=== PATIENT | male | born 1935 | race Caucasian/White ===

== ENCOUNTER 2018-04-11 09:30 | Emergency (ER) | payer MEDICARE, OTHER ==
[2018-04-11] MEDS ORDERED: KEFLEX500 MG PO (11:52)
[2018-04-11 13:02] VITALS: BP 134/73
== END 2018-04-11 13:02 | disposition home or self-care (01) ==
LOC: D.ER 09:30
DX: S09.90XA Unspecified injury of head, initial encounter (principal); W18.30XA Fall on same level, unspecified, initial encounter; Y93.01 Activity, walking, marching and hiking; Y92.830 Public park as the place of occurrence of the external cause; S01.81XA Laceration without foreign body of other part of head, initial encounter; S02.2XXA Fracture of nasal bones, initial encounter for closed fracture; F17.200 Nicotine dependence, unspecified, uncomplicated

== ENCOUNTER → 2018-08-16 08:02 | Outpatient (CLI) | payer MEDICARE, OTHER ==
[~2018-08-16 08:02] MED LIST: CELEXA20 MG PO; COREG6.25 MG PO; ELIQUIS2.5 MG PO; KEFLEX500 MG PO; LISINOPRIL5 MG PO; NEURONTIN 300300 MG PO; PLAVIX75 MG PO; RESTORIL15 MG PO
--- NOTE | 2018-08-20 10:22 | ST ---
PATIENT:ADAM ROUSE MEDICAL RECORD: [id number] SEX: M LOCATION:[facility] ORDER #: ADMISSION DATE: 08/16/18 AGE OF PATIENT: 83 REFERRING PHYSICIAN: INTERPRETING PHYSICIAN: MARILYN PAZ MD DATE OF SERVICE: 08/16/2018 INDICATIONS: Angina, shortness of breath, hypertension, cardiomyopathy. The patient was exercised on standard Lexiscan protocol with 31 mCi of sestamibi injected at peak stress, 11 mCi were used previously for rest images. FINDINGS: Gated SPECT reveals a mildly depressed ejection fraction at 44% with decreased thickening and brightening throughout the inferior segments. SPECT imaging Cardiolite was used as myocardial perfusion agent. There is a mixed perfusion defect inferiorly. This is partially fixed, partially reversible includes basal, mid, apical, inferior segments. There is reversibility throughout. The remaining segments with homogeneous uptake at rest and stress. OVERALL IMPRESSION: This is an abnormal nuclear stress test showing a mixed perfusion defect inferiorly, partially fixed, partially reversible and a mildly depressed ejection fraction of 44%, highly suggestive of hemodynamically significant coronary artery disease. We will proceed with coronary angiography as a followup study. TRANSINT:[id number] Voice Confirmation ID: [id number] DOCUMENT ID: [id number] MARILYN PAZ MD at 1022 CC: REY ROLON [id number] DICTATION DATE: 08/16/18 1259 [employer]AREER PLACEMENT [employer] COUNSELOR: 08/17/18 0225 [facility] CLI 08/16/18 [place] [id number] [place] [id number]
[2018-09-03 11:03] VITALS: BMI 28.6
== END | disposition home or self-care (01) ==
LOC: D.HCCARDIO 08:02
DX: I20.9 Angina pectoris, unspecified (principal)

== ENCOUNTER → 2018-08-16 08:38 | Outpatient (CLI) | payer MEDICARE, OTHER ==
[2018-09-03 11:03] VITALS: BMI 28.6
== END | disposition home or self-care (01) ==
LOC: D.HCCARDIO 08:30
DX: I20.9 Angina pectoris, unspecified (principal)

== ENCOUNTER 2018-08-26 10:34 | Outpatient (CLI) | payer MEDICARE, OTHER ==
[~2018-08-26] VITALS: Ht 180.3 cm; Wt 93.6 kg
--- NOTE | ~2018-08-26 | HEMODYNAMI ---
PATIENT:ADAM ROUSE MEDICAL RECORD: [id number] : 35 LOCATION:[facility] ADMISSION DATE: 08/26/18 Generatedon:08/26/201813:59 Patient name: ADAM ROUSE Patient #: [id number] SSN: : 1935 Date of study: 08/26/2018 Page: Of Hemodynamic Procedure Report Patient Data Patient Demographics Procedure consent was obtained First Name: ADAM Gender: Male Last Name: PADMA : 1935 Middle Initial: L Age: 83 year(s) Patient #: [id number] Race: Unknown Additional ID: [id number] Contact details Address: [address] [place] [address] [id number] State: [place] City: [facility] Zip code: [address] Admission Admission Data Admission Date: 08/26/2018 Admission Time: 10:34 Procedure Procedure Types Cath Procedure Diagnostic Procedure LHC LHC w/Coronaries PCI Procedure Coronary Stent Coronary Stent Initial Procedure Description Procedure Date Procedure Date: 08/26/2018 Procedure Start Time: 13:27 Procedure End Time: 13:59 Procedure Staff Name Function Nakul Hodgson MD Performing Physician Dawood Jorge RT Monitor Inna Black RT Scrub Jacquie Kim RN Nurse Procedure Data Cath Procedure Fluoroscopy Diagnostic fluoroscopy Total fluoroscopy Time: 3.3 time: 3.3 min min Diagnostic fluoroscopy Total fluoroscopy dose: 973 dose: 973 mGy mGy Contrast Material Contrast Material Type Amount (ml) Isovue 300 99 Entry Location Entry Primary Successful Side Size Upsize Upsize Entry Closure Succes sful Closure Location (Fr) 1 (Fr) 2 (Fr) Remarks Device Remarks Femoral Right 5 Fr 6 Fr Exoseal artery Short Estimated blood loss: 20 ml Diagnostic catheters Device Type Used For End Catheter Placement MULTIPACK JL 4.0 5Fr Procedure catheter MULTIPACK 3DRC 5Fr Procedure catheter MULTIPACK Pigtail 5 Fr Procedure catheter Procedure Medications Medication Administration Route Dosage Oxygen etCO2 Nasal cannula 2 l/min Lidocaine 2% added to field 20 Heparin Flush Bag added to field 2 bags (1000units/500ml NS) 0.9% NaCl I.V. 100 ml/hr Versed I.V. 1 mg Fentanyl I.V. 50 mcg Versed I.V. 1 mg Fentanyl I.V. 50 mcg Radial Cocktail added to field 1 syringe (Verapomil 2mg/Nitro 400mcg/Heparin 1500units) Heparin Bolus I.V. 4000 units Integrilin (Bolus I.V. 8.5 ml 2mg/ml) Plavix P.O. 600 mg Hemodynamics Rest Heart Rate: 75 (bpm) Pressure Samples Time Site Value (mmHg) Purpose Heart Use Rate(bpm) 13:38 LV 125/4,9 Snapshot 88 Snapshots Pre Cath Intra NCS Post Cath Vital Signs Time Heart Resp SPO2 etCO2 NIBP (mmHg) Rhythm Pain Sedation Rate (ipm) (%) (mmHg) Status Level (bpm) 13:13:38 77 14 99 29.8 168/104(122) A-Fib 0 (11) 10(A) , No pain 13:17:56 63 18 100 25.3 161/100(119) A-Fib 0 (11) 10(A) , No pain 13:22:10 77 12 100 22.4 143/98(127) A-Fib 0 (11) 10(A) , No pain 13:26:20 88 14 98 30 140/91(122) A-Fib 0 (11) 10(A) , No pain 13:30:27 72 18 94 33.6 138/98(116) A-Fib 0 (11) 9(A) , No pain 13:34:33 73 10 95 0 152/97(120) A-Fib 0 (11) 9(A) , No pain 13:38:49 83 10 93 8.9 143/86(127) A-Fib 0 (11) 9(A) , No pain 13:42:59 92 10 93 12.6 148/89(110) A-Fib 0 (11) 9(A) , No pain 13:47:09 68 10 96 29.1 151/97(129) A-Fib 0 (11) 9(A) , No pain 13:51:21 69 13 97 0 164/97(121) A-Fib 0 (11) 10(A) , No pain 13:55:37 80 12 96 27.6 151/100(125) A-Fib 0 (11) 10(A) , No pain Medications Time Medication Route Dose Verified Delivered Reason Not es Effectiveness by by 13:14:24 Oxygen etCO2 2 l/min Nakul Buffie used for Nasal St Toni Kim RN procedure cannula 13:14:31 Lidocaine 2% added 20ml Nakul Nakul for local to vial [facility] anesthetic field MD MORRIS 13:14:37 Heparin Flush added 2 bags Nakul Nakul used for Bag to [facility] procedure (1000units/500ml field MD MORRIS NS) 13:14:47 0.9% NaCl I.V. 100 Nakul Hillie used for ml/hr St Toni Kim RN procedure 13:28:28 Versed I.V. 1 mg Nakul Hillie for sedation St Toni Kim RN, MD 13:28:34 Fentanyl I.V. 50 mcg Nakul Dhillon for sedation St Toni Kim RN, MD 13:32:31 Versed I.V. 1 mg Nakul Hillie for sedation St Toni Kim RN, MD 13:32:35 Fentanyl I.V. 50 mcg Nakul Dhillon for sedation St Toni Kim RN, MD 13:32:52 Radial Cocktail added 1 Nakul Buffie not used (Verapomil to syringe St Toni Kim RN 2mg/Nitro field MORRIS 400mcg/Heparin 1500units) 13:42:13 Heparin Bolus I.V. 4000 Nakul Hillie for cely ified units St Toni Kim RN anticoagulation with dr MD serrano 13:42:20 Integrilin I.V. 8.5 ml Nakul Hillie for Was marguerite (Bolus 2mg/ml) St Toni Kim RN antiplatelet 1.5 ml MD therapy of vial 13:53:59 Plavix P.O. [address] for [address] Toni Kim RN antiplatelet therapy Procedure Log Time Note 12:50:43 Dawood Jorge RT(R) (CV) sent for patient. Start room use. 13:05:23 Informed consent obtained and on chart 13:05:53 Time tracking: Regular hours (M-F 7:00 - 5:00) 13:05:57 Plan of Care:Hemodynamics will remain stable., Cardiac rhythm will remain stable., Comfort level will be maintained., Respiratory function will remain adequate., Patient/ family verbilizes understanding of procedure., Procedure tolerated without complication., Recovers from procedure without complications.. 13:06:03 Patient received from Pre/Post Procedure Room to CCL 2 Alert and oriented. Tansferred to table in Supine position. 13:06:04 Warm blankets applied, and torin hugger turned on for patient comfort. 13:06:04 Correct patient and procedure confirmed by team. 13:06:05 ECG and BP/O2 sat monitors applied to patient. 13:12:29 Vital chart was started 13:12:58 Baseline sample Acquired. 13:13:15 Rhythm: atrial fibrillation 13:13:17 Full Disclosure recording started 13:13:21 H&P Date Dictated: 08/26/2018 Within 30 days and on chart., H&P Addendum completed by physician on day of procedure. (MUST COMPLETE FOR ALL OUTPATIENTS). 13:13:22 Pre-procedure instructions explained to patient. 13:13:23 Pre-op teaching completed and patient verbalized understanding. 13:13:24 Family in waiting room. 13:13:26 Patient NPO since Midnight. 13:13:28 Is the patient allergic to Iodine/contrast media? No. 13:13:29 Was the patient premedicated? No 13:13:30 Is patient on blood thinner?No 13:13:45 Patient diabetic? No. 13:13:48 Previous problem with sedation/anesthesia? No ? 13:13:51 Snore? No 13:13:52 Sleep apnea? No 13:13:53 Deviated septum? No 13:13:54 Opens mouth fully? Yes 13:13:56 Sticks out tongue? Yes 13:13:58 Airway obstruction? No ? 13:14:00 Dentures? No ? 13:14:14 Patient pain scale 0/10 ?. 13:14:19 IV patent on arrival in left forearm with 0.9% NaCl at [facility]. 13:14:21 Lab results completed and on chart. 13:14:24 Oxygen 2 l/min etCO2 Nasal cannula was administered by Jacquie Kim RN; used for procedure; 13:14:27 Right Radial & Right Groin area was prepped with chlora-prep and draped in sterile fashion 13:14:28 Alarms reviewed by R. N. 13:14:28 Sharps counted by scrub and verified by R.N. 13:14:31 Lidocaine 2% 20ml vial added to field was administered by Nakul Hodgson MD; for local anesthetic; 13:14:37 Heparin Flush Bag (1000units/500ml NS) 2 bags added to field was administered by Nakul Hodgson MD; used for procedure; 13:14:47 0.9% NaCl 100 ml/hr I.V. was administered by Jacquie Kim RN; used for procedure; 13:20:21 Use device set Radial Dx or PCI 13:20:22 ACIST Syringe (55621) opened to sterile field. 13:20:23 Medline Cath Pack ([id number]) opened to sterile field. 13:20:24 Bag Decanter (2002) opened to sterile field. 13:20:24 DIAGNOSTIC WIRE .035 260cm J wire (314050) opened to sterile field. 13:20:25 ACIST Hand Control (73108) opened to sterile field. 13:20:26 ACIST Manifold (45293) opened to sterile field. 13:20:27 Tegaderm 4 x 4 (1626W) opened to sterile field. 13:20:27 MBrace Wrist Support ([id number]) opened to sterile field. 13:20:46 SHEATH 6FR RAIN (2086888) NO COST SUPPLY opened to sterile field. 13:21:31 Pre procedure: right dorsailis pedis pulse 1+ Palpable, but thready & weak; easily obliterated 13:27:05 Physician arrived 13:27:06 --------ALL STOP TIME OUT------ 13:27:06 Final Timeout: patient, procedure, and site verified with staff and physician. All members of the team are in agreement. 13:27:09 Right Radial & Right Groin site verified by team. 13:27:12 Physical assessment completed. ASA score P 2 - A patient with mild systemic disease as per Nakul Hodgson MD. 13:27:16 Sedation plan: IV Moderate Sedation Medication:Versed, Fentanyl 13:27:27 Procedure started. 13:27:55 Local anesthetic to right radial artery with Lidocaine 2% by Nakul Hodgson MD.INITIAL ACCESS ONLY 13:28:28 Versed 1 mg I.V. was administered by Jacquie Kim RN; for sedation; 13:28:34 Fentanyl 50 mcg I.V. was administered by Jacquie Kim RN; for sedation; 13:31:09 UNABLE TO GAIN RADIAL ACCESS 13:31:52 SHEATH 5FR Concord (TPQ773) opened to sterile field. 13:32:07 Local anesthetic to right femoral artery with Lidocaine 2% by Nakul Hodgson MD.ADDITIONAL ACCESS 13:32:31 Versed 1 mg I.V. was administered by Jacquie Kim RN; for sedation; 13:32:35 Fentanyl 50 mcg I.V. was administered by Jacquie Kim RN; for sedation; 13:32:52 Radial Cocktail (Verapomil 2mg/Nitro 400mcg/Heparin 1500units) 1 syringe added to field was administered by Jacquie Kim RN; ; not used 13:33:10 A 5 Fr sheath was inserted into the Right Femoral artery 13:33:28 Use device set Femoral Dx 13:34:06 DIAGNOSTIC Multipack 5Fr catheter set (LG5451) opened to sterile field. 13:34:19 A MULTIPACK JL 4.0 5Fr catheter was advanced over the wire and used for Procedure. 13:34:23 LCA angiography performed. 13:35:05 Catheter removed. 13:35:18 A MULTIPACK 3DRC 5Fr catheter was advanced over the wire and used for Procedure. 13:35:43 RCA angiography performed. 13:36:28 Catheter removed. 13:36:37 A MULTIPACK Pigtail 5 Fr catheter was advanced over the wire and used for Procedure. 13:36:44 Zero performed for pressure channel P1 13:36:47 Zero performed for pressure channel P1 13:36:50 Zero performed for pressure channel P1 13:36:53 Zero performed for pressure channel P1 13:36:55 Zero performed for pressure channel P1 13:37:00 Zero performed for pressure channel P1 13:37:18 Zero performed for pressure channel P1 13:37:32 Zero performed for pressure channel P1 13:37:37 Zero performed for pressure channel P1 13:37:47 Zero performed for pressure channel P1 13:38:15 LV gram done using MARES 13:38:16 LV hemodynamics recorded. 13:38:33 EF : 40 % 13:40:32 WHISPER 300cm guide wire ([id number]) opened to sterile field. 13:40:35 INFLATOR Merit BasixCompak (WA3172) opened to sterile field. 13:40:37 SHEATH 6FR Concord (IEG812) opened to sterile field. 13:40:55 GUIDE 6FR EBU 3.5 catheter ([id number]) opened to sterile field. 13:41:10 Sheath upsized to a 6 Fr Short. 13:41:20 Catheter removed. 13:41:21 Proceeding to intervention. 13:42:13 Heparin Bolus 4000 units I.V. was administered by Jacquie Kim RN; for anticoagulation; verified with dr serrano 13:42:19 PCI Cath status Elective 13:42:20 Integrilin (Bolus 2mg/ml) 8.5 ml I.V. was administered by Jacquie Kim RN; for antiplatelet therapy; Wasted 1.5 ml of vial 13:42:26 6 Fr EBU 3.5 guide catheter was inserted over the wire 13:44:28 WHISPER wire advanced. 13:45:27 Place stent Inflation Number: 1 A INTEGRITY OTW 3.5 X 22 stent ([id number]) was prepped and advanced across the Mid LAD. The stent was deployed at 14 LISA for 0:30 (min:sec). 13:46:08 Stent catheter was removed intact over wire. 13:47:56 Place stent Inflation Number: 1 A INTEGRITY OTW 3.5 X 15 stent ([id number]) was prepped and advanced across the Prox LAD. The stent was deployed at 14 LISA for 0:30 (min:sec). 13:48:13 Stent catheter was removed intact over wire. 13:48:14 Wire removed. 13:48:15 Guide catheter removed. 13:49:13 EXOSEAL 6Fr (EX600) opened to sterile field. 13:49:40 Sheath removed intact; hemostasis achieved with Exoseal to the Right Femoral artery. 13:50:21 Procedure ended.(Physican Out) 13:53:59 Plavix 600 mg P.O. was administered by Jacquie Kim RN; for antiplatelet therapy; 13:54:58 Fluoroscopy time 03.30 minutes. 13:55:17 Fluoroscopy dose: 973 mGy 13:55:17 Flurop Dose total: 973 13:55:46 Contrast amount:Isovue 300 99ml. 13:55:53 Sharps counted by scrub and verified by R.N. 13:56:53 Insertion/operative site no bleeding no hematoma. 13:56:57 Post-op/insertion site Right Femoral artery dressed using a 4 x 4 and Tegaderm. 13:57:01 Post right femoral artery:stable 13:57:06 Post Procedure Pulses reassessed and unchanged 13:57:12 Post-procedure physical assessment completed. ASA score P 2 - A patient with mild systemic disease as per Nakul Hodgson MD. 13:57:22 Post procedure rhythm: atrial fibrillation 13:57:27 Estimated blood loss: 20 ml 13:57:33 Patient needs reinforcement of post procedure teaching. 13:57:40 Procedure and supply charges have been captured, reviewed, submitted and are correct. 13:58:15 Procedure type changed to Cath procedure, Diagnostic procedure, LHC, LHC w/Coronaries, PCI procedure, Coronary Stent, Coronary Stent Initial 13:58:58 Vital chart was stopped 13:58:59 See physician's report for complete and final results. 13:59:01 Report given to Pre/Post Procedure Room. 13:59:10 Patient transfered to Pre/Post Procedure Room with Stretcher. 13:59:17 Procedure ended. 13:59:17 Full Disclosure recording stopped 13:59:21 End room use (Document Last) Intervention Summary Intervention Notes Time ActionType Lesion and Equipment Action# Pressure Duration Attributes Used 13:45:27 Place stent Mid LAD INTEGRITY 1 14 00:30 OTW 3.5 X 22 stent ([id number]) 13:47:56 Place stent Prox LAD INTEGRITY 1 14 00:30 OTW 3.5 X 15 stent ([id number]) Device Usage Item Name Manufacture Quantity Catalog Hospital Part Current Minimal Lot# / Number Charge Number Stock Stock Serial# Code ACIST Acist 1 74353 859108 599967 579814 20 Syringe Medical (58179) Systems Inc Medline Medline 1 [id number] 933383 05112 577778 5 Cath Pack ([id number]) Bag Microtek 1 2001S 776644 87617 167682 5 Decanter Medical Inc. () DIAGNOSTIC St [place] 1 864152 423750 238737 932438 30 WIRE .035 260cm J wire (786301) ACIST Hand Acist 1 97835 797257 419037 244143 5 Control Medical (29361) Systems Inc ACIST Acist 1 38074 918749 147654 265002 5 Manifold Medical (02731) Systems Inc Tegaderm 4 3M 1 1626W 134175 359325 015482 5 x 4 (1626W) MBrace Advanced 1 140-0250-00 244982 85100 094283 5 Wrist Vascular Support Dynamics ([id number]) SHEATH 6FR Cardinal 1 4804488 592385 589680 5 [facility] (6730026) NO COST SUPPLY SHEATH 5FR Terumo 1 NDJ024 802950 124843 379005 5 Concord (JDR835) DIAGNOSTIC Cardinal 1 OC5995 624943 99303 433492 30 Multipack Health 5Fr catheter set (DE4599) MULTIPACK Cardinal 1 550592 5 JL 4.0 5Fr Health catheter MULTIPACK Cardinal 1 203577 5 3DRC 5Fr Health catheter MULTIPACK Cardinal 1 904255 5 Pigtail 5 Health Fr catheter WHISPER [place] 1 [id number] 115752 428062 590639 5 300cm guide Vascular wire ([id number]) INFLATOR [facility] 1 WL8921 454645 716534 242313 15 [facility] BasixCompak (GZ3037) SHEATH 6FR Terumo 1 UZY344 274159 383879 485746 40 Concord (MLT896) GUIDE 6FR Medtronic 1 [id number] 779397 33835 686185 3 EBU 3.5 catheter (TR4SZS51) INTEGRITY Medtronic 1 [id number] 551195 745106 356814 9 [id number] OTW 3.5 X 22 stent ([id number]) INTEGRITY Medtronic 1 [id number] 414361 358431 915649 2 [id number] OTW 3.5 X 15 stent ([id number]) EXOSEAL 6Fr Cardinal 1 EX600 956158 259912 944050 10 (EX600) Health Signature Audit S [place] Stage Time Signature Unsigned Intra-Procedure 08/26/2018 Dawood Jorge 1:59:45 PM RT(R) (CV) Signatures Monitor : Dawood Jorge RT Signature : Date : Time : [facility] [address] [place] [id number]
[~2018-08-26 10:34] MED LIST changes: -CELEXA20 MG PO; -COREG6.25 MG PO; -ELIQUIS2.5 MG PO; -LISINOPRIL5 MG PO; -NEURONTIN 300300 MG PO; -PLAVIX75 MG PO; -RESTORIL15 MG PO
[2018-08-26] MEDS ORDERED: ELIQUIS2.5 MG PO (11:11)
[2018-08-26] MEDS ORDERED: RESTORIL15 MG PO (11:12)
[2018-08-26] MEDS ORDERED: LISINOPRIL5 MG PO (11:12)
[2018-08-26] MEDS ORDERED: NEURONTIN 300300 MG PO (11:13)
[2018-08-26] MEDS ORDERED: COREG6.25 MG PO (11:14)
[2018-08-26] MEDS ORDERED: CELEXA20 MG PO (11:14)
[2018-08-26 11:33] VITALS: BP 138/86; Ht 180.3 cm; Wt 93.6 kg
[2018-08-26 11:42] LABS: BASOPHILS 0.8 % (0-2); EOSINOPHILS 2.5 % (0-7); HEMATOCRIT 41.1 % (42.0-54.0); HEMOGLOBIN 14.3 g/dL (13.5-17.5); LYMPHOCYTES 18.7 % (15-50); MCH 33.3 pg (26.0-34.0); MCHC 34.8 g/dL (31.0-37.0); MCV 95.8 fL (80.0-100.0); MEAN PLATELET VOLUME 9.5 fL (7.4-10.4); MONOCYTES 7.5 % (2-11); NEUTROPHILS 69.5 % (40-80); PLATELET COUNT 148 10x3/uL (130-400); RBC 4.29 10x6/uL (4.20-6.10); RDW 14.9 % (11.5-14.5); WBC 7.1 10x3/uL (4.8-10.8)
[2018-08-26 11:50] LABS: CALC OSMOLALITY 276 mosm/kg (275-300); CALCIUM 8.5 mg/dL (8.5-10.1); CARBON DIOXIDE 26.9 mmol/L (21.0-32.0); CHLORIDE - SERUM 100 mmol/L (98-107); CREATININE - SERUM 0.8 mg/dL (0.6-1.3); GLUCOSE 99 mg/dL (74-106); SODIUM 137 mmol/L (136-145); UREA NITROGEN 20 mg/dL (7-18); eGFR NON AFRICAN AMERICAN > 90 mL/min (90-120)
[2018-08-26 11:52] LABS: POTASSIUM - SERUM 4.9 mmol/L (3.5-5.1)
[2018-08-26] MEDS ORDERED: PLAVIX75 MG PO (14:10)
--- NOTE | 2018-08-26 14:23 | NUR ---
1411 RECEIVED PT FROM ROOFING APPLICATOR. PT IS SLEEPING, AWAKENS TO VERBAL. DENIES ANY C/O. TR BAND CDI TO RIGHT WRIST, 6 FR EXOSEAL IS CDI TO RIGHT GROIN, NO BLEEDING OR HEMATOMA NOTED AT SITES. PULSES PALPABLE. AFIB WITH OCCASIONAL PVC'S, PT DENIES ANY C/O CHEST PAIN. HOB IS FLAT, FRIENDS AT BEDSIDE,. CALL LIGHT IN REACH.
--- NOTE | 2018-08-26 14:28 | NUR ---
EXOSEAL AND TR BAND ARE CDI, NO BLEEDING OR HEMATOMA NOTED AT EITHER SITE, PULSES PALPABLE. HOB IS FLAT. VSS, CALL LIGHT IN REACH. FRIENDS AT BEDSIDE.
--- NOTE | 2018-08-26 14:46 | NUR ---
EXOSEAL DRESSING AND TR BAND ARE CDI, PULSES PALPABLE, CAP REFILL IS BRISK. HOB IS FLAT, VSS. DENIES ANY C/O. CALL LIGHT IN REACH.
--- NOTE | 2018-08-26 15:08 | NUR ---
DRESSING CDI TO RIGHT GROIN AND TR BAND IS CDI TO RIGHT WRIST. PULSES PALPABLE. HOB IS FLAT, A-FIB WITH NO C/O CHEST PAIN. VSS.
--- NOTE | 2018-08-26 15:59 | NUR ---
DRESSING TO RIGHT GROIN IS CDI, AREA IS SOFT AND NONTENDER. PEDAL PULSES PALPABLE. TR BAND IS CDI TO RIGHT WRIST, NO BLEEDING NOTED. FIGNERS WARM AND CAP REFILL IS BRISK. PT DENIES ANY C/O. VSS, FRIEND AT BEDSIDE.
--- NOTE | 2018-08-26 16:33 | NUR ---
TR BAND CDI, FINGERS WARM AND PULSES PALPABLE. EXOSEAL CDI TO RIGHT GROIN, AREA IS SOFT AND NONTENDER. PEDAL PULSES PALPABLE. A-FIB, PT DENIES ANY C/O CHEST PAIN. HOB IS FLAT, FRIEND AT BEDSIDE. CALL LIGHT IN REACH.
--- NOTE | 2018-08-26 16:58 | NUR ---
DRESSING REMAINS CDI TO RIGHT GROIN, AREA IS SOFT AND NONTENDER. PEDAL PULSES PALPABLE. HOB ELEVATED 30 DEGREES, SANDWICH AND PO FLUIDS SERVED. 3 CC OF AIR WEANED FROM TR BAND WITH NO BLEEDING NOTED. FINGERS WARM PULSES PALPABLE. PT IS ALERT AND DENIES ANY C/O. RESP WITH EASE ON ROOM AIR.
--- NOTE | 2018-08-26 18:20 | NUR ---
1710 4 CC OF AIR WEANED FROM TR BAND WITH NO BLEEDING NOTED. 1725 HOB FULY ELEVATED, DRESSING REMAINS CDI TO RIGHT GROIN. ALL REMAINING AIR WEANED FROM TR BAND WITH NO BLEEDING NOTED. PT HAS TOLERATED SANDWICH WITH NO C/O NAUSEA.
--- NOTE | 2018-08-26 18:22 | NUR ---
1745 TR BAND REMOVED AND 2X2, TEGADERM APPLIED TO SITE. WRIST IMMOBILIZER IN PLACE. DRESSING CDI TO RIGHT GROIN, PEDAL AND RADIAL PULSES PALPABLE. IV DC'D WITH CATH INTACT AND PT IS DRESSING FOR DC TO HOME WITH ASSIST FROM NURSE. 1805 DRESSING TO RIGHT WRIST IS CDI, FINGERS WARM AND PULSES PALPABLE. DC INSTRUCTIONS REVIEWED WITH PT AND FRIEND WHO VERBALIZE UNDERSTANDING. PT VERBALIZES UNDERSTANDING TO PLANE CAPTAIN [facility] PRES[facility] AND START MED TOMORROW. [facility] MED COUNSELOR SHEET REVIEWED WITH PT AND COPY PROVIDED. PT ESCORTED TO PRIVATE AUTO VIA WC BY NURSE WITH FRIEND DRIVING HIM HOME.
--- NOTE | 2018-08-31 12:54 | OP ---
PATIENT NAME: ADAM ROUSE MEDICAL RECORD: [id number] :35 LOCATION:D.[facility] ADMISSION DATE: SURGEON: SABINE ARREAGA MD DATE OF OPERATION: 08/26/2018 PROCEDURES: Left heart catheterization, selective coronary angiography, right femoral artery approach. CATHETERS: A 5-Gibraltarian sheath, 5/4 left and right Gosia, 5/4 pig. The procedure was well tolerated. The patient was returned to [place]. Sheath was removed. ExoSeal device was placed. FINDINGS: Left ventriculography on 30-degree MARES view shows mild global hypokinesis. EF is mildly reduced at 40%. CORONARY ANATOMY: LEFT MAIN: Left main is free of disease. LAD: It has long diffuse 80% stenosis. CIRCUMFLEX: Small circumflex, about 70% stenosis, diffuse. RIGHT CORONARY: It has a more discrete 80% stenosis. PLAN: Staged intervention with LAD today and right at a later date. DESCRIPTION OF PROCEDURE: A 5-Gibraltarian sheath was exchanged for a 6-Gibraltarian sheath. XB LAD guiding catheter provided excellent guide catheter support followed by 300-cm Whisper wire. Stents were placed in the following fashion. A 3.5 x 22-mm Integrity nondrug-eluting stent placed distally; and more proximally, a 3.5 x 15-mm Integrity nondrug-eluting stent up to 14 atmospheres. Balloon inflation lasted approximately 45 seconds. Final angiography shows excellent resolution of long diffuse 80% stenosis with no significant residual. LIZZ flow was 3 throughout the procedure. Plavix was loaded in the lab. Sheath was closed with ExoSeal device. PLAN: Intervention to right at a later date. TRANSINT:[id number] Voice Confirmation ID: [id number] DOCUMENT ID: [id number] SABINE ARREAGA MD at 1254 CC: [id number] DICTATION DATE: 08/26/18 1352 GANG HEAD SAW OPERATOR: 08/26/18 1931 DEP CLI 08/26/18 [facility] [address] [place] [place] [address]
== END 2018-08-26 18:05 | disposition home or self-care (01) ==
LOC: D.CATH 10:34
PROVIDERS: Internal Medicine Interventional Cardiology
DX: I25.10 Atherosclerotic heart disease of native coronary artery without angina pectoris (principal); I48.91 Unspecified atrial fibrillation; I10 Essential (primary) hypertension; F17.210 Nicotine dependence, cigarettes, uncomplicated; F32.9 Major depressive disorder, single episode, unspecified; Z95.0 Presence of cardiac pacemaker; Z79.01 Long term (current) use of anticoagulants; Z79.899 Other long term (current) drug therapy; Z01.812 Encounter for preprocedural laboratory examination

== ENCOUNTER 2018-08-26 19:14 | Emergency (ER) | payer MEDICARE, OTHER ==
[~2018-08-26] VITALS: Ht 180.3 cm; Wt 93.2 kg
[~2018-08-26 19:14] MED LIST changes: +CELEXA20 MG PO; +COREG6.25 MG PO; +ELIQUIS2.5 MG PO; +LISINOPRIL5 MG PO; +NEURONTIN 300300 MG PO; +PLAVIX75 MG PO; +RESTORIL15 MG PO
[2018-08-26 19:24] VITALS: Ht 180.3 cm; Wt 93.2 kg
[2018-08-26 20:00] VITALS: BP 130/79
== END 2018-08-26 20:00 | disposition home or self-care (01) ==
LOC: D.ER 19:14
DX: L76.22 Postprocedural hemorrhage of skin and subcutaneous tissue following other procedure (principal); I10 Essential (primary) hypertension; F17.200 Nicotine dependence, unspecified, uncomplicated

== ENCOUNTER 2018-09-03 10:25 | Outpatient (CLI) | payer MEDICARE, OTHER ==
[~2018-09-03] VITALS: Ht 180.3 cm; Wt 93.2 kg
--- NOTE | ~2018-09-03 | HEMODYNAMI ---
PATIENT:ADAM ROUSE MEDICAL RECORD: [id number] : 35 LOCATION:D.CAT ADMISSION DATE: 09/03/18 Generatedon:09/03/201813:23 Patient name: ADAM ROUSE Patient #: [id number] SSN: : 1935 Date of study: 09/03/2018 Page: Of Hemodynamic Procedure Report Patient Data Patient Demographics Procedure consent was obtained First Name: ADAM Gender: Male Last Name: PADMA : 1935 Middle Initial: L Age: 83 year(s) Patient #: [id number] Race: Unknown Additional ID: [id number] Contact details Address: [address] [place] [address] [id number] State: [place] City: [facility] [place] Zip code: [address] Past Medical History Allergies: No known allergies Admission Admission Data Admission Date: 09/03/2018 Admission Time: 10:25 Admit Source: Other Lab Results Lab Result Date: 09/03/2018 Lab Result Time: 0:00 Biochemistry Name Units Result Min Max BUN mg/dl 14 --(--*-)-- 7 18 Creatinine mg/dl 1.1 --(--*-)-- 0.6 1.3 CBC Name Units Result Min Max Hemoglobin g/dl 14.3 --(*---)-- 13.5 17.5 Procedure Procedure Types Cath Procedure PCI Procedure Coronary Stent Coronary Stent Initial Procedure Description Procedure Date Procedure Date: 09/03/2018 Procedure Start Time: 13:07 Procedure End Time: 13:22 Procedure Staff Name Function Nakul Hodgson MD Performing Physician Yannick España RT Monitor Imelda Loving RT Scrub Pasha Briones RN Nurse Procedure Data Cath Procedure Fluoroscopy Diagnostic fluoroscopy Total fluoroscopy Time: 4.6 time: 4.6 min min Diagnostic fluoroscopy Total fluoroscopy dose: 625 dose: 625 mGy mGy Contrast Material Contrast Material Type Amount (ml) Isovue 300 60 Entry Location Entry Primary Successful Side Size Upsize Upsize Entry Closure Succes sful Closure Location (Fr) 1 (Fr) 2 (Fr) Remarks Device Remarks Femoral Right 6 Fr Exoseal artery Short Procedure Complications No complications Procedure Medications Medication Administration Route Dosage 0.9% NaCl I.V. bolus 100 ml/hr Oxygen etCO2 Nasal cannula 2 l/min Heparin Flush Bag added to field 2 bags (1000units/500ml NS) Lidocaine 2% added to field 20 Versed I.V. 2 mg Fentanyl I.V. 100 mcg Heparin Bolus I.V. 5000 units Hemodynamics Rest HGB: 14.3 (g/dl) Heart Rate: 70 (bpm) Snapshots Pre Cath Intra NCS Post Cath Vital Signs Time Heart Resp SPO2 etCO2 NIBP (mmHg) Rhythm Pain Sedation Rate (ipm) (%) (mmHg) Status Level (bpm) 12:54:56 70 29 99 14.2 157/48(76) NSR 0 (11) 10(A) , No pain 12:59:08 78 19 99 0 155/105(128) NSR 0 (11) 10(A) , No pain 13:03:20 76 16 100 42.6 141/110(127) NSR 0 (11) 10(A) , No pain 13:07:26 64 17 99 35.1 143/101(136) NSR 0 (11) 9(A) , No pain 13:11:31 91 19 93 17.2 151/105(125) NSR 0 (11) 9(A) , No pain 13:15:39 81 17 92 40.3 154/100(141) NSR 0 (11) 9(A) , No pain 13:19:49 88 14 94 32.1 142/106(124) NSR 0 (11) 9(A) , No pain Medications Time Medication Route Dose Verified Delivered Reason Notes Effectiveness by by 12:55:50 0.9% NaCl I.V. 100 Pasha Pasha Per physician bolus ml/hr Anselmo Briones RN RN 12:56:02 Oxygen etCO2 2 Pasha Pasha Per physician Nasal l/min Anselmo Briones cannula RN RN 12:56:13 Heparin Flush added 2 Pasha Pasha used for Bag to bags Anselmo Briones procedure (1000units/500ml field RN RN NS) 12:56:23 Lidocaine 2% added 20ml Pasha Pasha for local to vial Lorigan Lorigan anesthetic field RN RN 13:06:51 Versed I.V. 2 mg Pasha Pasha for sedation Anselmo Briones RN RN 13:07:02 Fentanyl I.V. 100 Pasha Pasha for sedation mcg Anselmo Briones RN RN 13:11:05 Heparin Bolus I.V. 5000 Pasha Pasha for units Anselmo Briones anticoagulation RN education supervisor Log Time Note 12:30:45 Yannick Suit RT(R) sent for patient. Start room use. 12:39:04 Admit Source: Other 12:39:41 Diagnostic Cath status Elective 12:39:52 Time tracking: Regular hours (M-F 7:00 - 5:00) 12:39:58 Plan of Care:Hemodynamics will remain stable., Cardiac rhythm will remain stable., Comfort level will be maintained., Respiratory function will remain adequate., Patient/ family verbilizes understanding of procedure., Procedure tolerated without complication., Recovers from procedure without complications.. 12:53:29 Patient received from Pre/Post Procedure Room to CCL 2 Alert and oriented. Tansferred to table in Supine position. 12:53:30 Warm blankets applied, and torin hugger turned on for patient comfort. 12:53:31 Correct patient and procedure confirmed by team. 12:53:32 Signed procedure consent form obtained from patient. 12:53:33 ECG and BP/O2 sat monitors applied to patient. 12:53:34 Vital chart was started 12:53:35 Baseline sample Acquired. 12:53:39 Rhythm: sinus rhythm 12:53:40 Full Disclosure recording started 12:53:44 H&P Date Dictated: 09/03/2018 Within 30 days and on chart.. 12:53:44 Pre-procedure instructions explained to patient. 12:53:45 Pre-op teaching completed and patient verbalized understanding. 12:53:48 Family in waiting room. 12:53:49 Patient NPO since Midnight. 12:54:00 Patient allergic to No known allergies 12:54:04 Is the patient allergic to Iodine/contrast media? No. 12:54:06 Is patient on blood thinner?Yes 12:54:08 ACC The patient was administered the following blood thiners within the last 24 hours: ACCPlavix 12:54:10 Patient diabetic? No. 12:54:11 ----Pre-sedation anethsthesia assessment.---- 12:54:13 Previous problem with sedation/anesthesia? No ? 12:54:16 Snore? No 12:54:17 Sleep apnea? No 12:54:18 Deviated septum? No 12:54:20 Opens mouth fully? Yes 12:54:21 Sticks out tongue? Yes 12:54:23 Airway obstruction? No ? 12:54:30 Dentures? Yes partial in tight 12:54:35 Pre procedure: right dorsailis pedis pulse 1+ Palpable, but thready & weak; easily obliterated 12:54:38 Patient pain scale 0/10 ?. 12:54:59 IV patent on arrival in left forearm with 0.9% NaCl at 10ml/hr. 12:55:19 Lab Result : Creatinine 1.1 mg/dl 12:55:19 Lab Result : BUN 14 mg/dl 12:55:19 Lab Result : Hemoglobin 14.3 g/dl 12:55:22 Lab results completed and on chart. 12:55:25 Right groin area was prepped with chlora-prep and draped in sterile fashion 12:55:26 Alarms reviewed by R. N. 12:55:27 Sharps counted by scrub and verified by R.N. 12:55:28 Physician paged 12:55:50 0.9% NaCl 100 ml/hr I.V. bolus was administered by Pasha Briones RN; Per physician; 12:56:02 Oxygen 2 l/min etCO2 Nasal cannula was administered by Pasha Briones RN; Per physician; 12:56:13 Heparin Flush Bag (1000units/500ml NS) 2 bags added to field was administered by Pasha Briones RN; used for procedure; 12:56:23 Lidocaine 2% 20ml vial added to field was administered by Pasha Briones RN; for local anesthetic; 13:06:09 --------ALL STOP TIME OUT------ 13:06:09 Final Timeout: patient, procedure, and site verified with staff and physician. All members of the team are in agreement. 13:06:12 Right groin site verified by team. 13:06:17 Fire Safety Assessment: A--An alcohol-based skin anteseptic being used preoperatively., C--Open oxygen or nitrous oxide is being used., D--An ESU, laser, or fiber-optic light is being used. 13:06:22 Physical assessment completed. ASA score P 2 - A patient with mild systemic disease as per Nakul Hodgson MD. 13:06:26 Sedation plan: IV Moderate Sedation Medication:Versed, Fentanyl 13:06:51 Versed 2 mg I.V. was administered by Pasha Briones RN; for sedation; 13:06:53 Zero performed for pressure channel P1 13:07:02 Fentanyl 100 mcg I.V. was administered by Pasha Briones RN; for sedation; 13:07:07 Procedure started. 13:07:16 Local anesthetic to right femoral artery with Lidocaine 2% by Nakul Hodgson MD.INITIAL ACCESS ONLY 13:07:25 A 6 Fr Short sheath was inserted into the Right Femoral artery 13:07:31 ACIST Syringe (71075) opened to sterile field. 13:07:32 Bag Decanter (2002S) opened to sterile field. 13:07:32 Medline Cath Pack ([id number]) opened to sterile field. 13:07:33 DIAGNOSTIC WIRE .035 260cm J wire (737898) opened to sterile field. 13:07:41 ACIST Hand Control (14466) opened to sterile field. 13:07:42 ACIST Manifold (39349) opened to sterile field. 13:07:43 Tegaderm 4 x 4 (1626W) opened to sterile field. 13:08:10 SHEATH 6FR [place] (DGC068) opened to sterile field. 13:08:10 GUIDE 6FR HS II catheter (PM1EIVW) opened to sterile field. 13:08:11 WHISPER 300cm guide wire ([id number]) opened to sterile field. 13:08:11 INFLATOR Merit BasixCompak (VK3407) opened to sterile field. 13:08:21 6 Fr HS 11 guide catheter was inserted over the wire 13:08:25 WHISPER wire advanced. 13:11:05 Heparin Bolus 5000 units I.V. was administered by Pasha Briones RN; for anticoagulation; 13:13:08 The INTEGRITY OTW 3.5 X 15 stent ([id number]) was advanced then removed because in body, not inflated 13:13:11 Wire removed. 13:13:17 Guide catheter removed. 13:13:25 Guide Catheter removed. unable to get back-up support 13:13:41 GUIDE 6FR AR 1.0 catheter ([id number]) opened to sterile field. 13:13:50 6 Fr AR 1 guide catheter was inserted over the wire 13:13:55 WHISPER wire advanced. 13:16:09 Place stent Inflation Number: 1 A INTEGRITY OTW 3.5 X 15 stent ([id number]) was prepped and advanced across the Dist RCA. The stent was deployed at 14 LISA for 0:45 (min:sec). 13:16:53 Stent catheter was removed intact over wire. 13:19:22 Place stent Inflation Number: 1 A INTEGRITY OTW 4.0 X 30 stent ([id number]) was prepped and advanced across the Mid RCA. The stent was deployed at 14 LISA for 0:45 (min:sec). 13:19:46 Stent catheter was removed intact over wire. 13:19:47 Wire removed. 13:19:50 Guide catheter removed. 13:19:56 Contrast amount:Isovue 300 60ml. 13:20:02 Sheath removed intact; hemostasis achieved with Exoseal to the Right Femoral artery. 13:20:09 EXOSEAL 6Fr (EX600) opened to sterile field. 13:20:11 Procedure ended.(Physican Out) 13:20:22 Fluoroscopy time 04.60 minutes. 13:20:26 Flurop Dose total: 625 13:20:26 Fluoroscopy dose: 625 mGy 13:20:57 Sharps counted by scrub and verified by R.N. 13:20:58 Insertion/operative site no bleeding no hematoma. 13:21:00 Post-op/insertion site Right Femoral artery dressed using a 4 x 4 and Tegaderm. 13:21:03 Post right femoral artery:stable 13:21:04 Post Procedure Pulses reassessed and unchanged 13:21:06 Post procedure: right dorsailis pedis pulse 1+ Palpable, but thready & weak; easily obliterated. 13:21:09 Post procedure rhythm: sinus rhythm 13:21:10 Post procedure instruction explained to patient.Patient verbalizes understanding. 13:22:34 Procedure and supply charges have been captured, reviewed, submitted and are correct. 13::38 Procedure Complication : No complications 13:22:40 Vital chart was stopped 13:22:40 See physician's report for complete and final results. 13:22:44 Report given to Pre/Post Procedure Room. 13:22:52 Patient transfered to Pre/Post Procedure Room with Stretcher. 13:22:55 Procedure ended. 13:22:55 Full Disclosure recording stopped 13:23:00 End room use (Document Last) Intervention Summary Intervention Notes Time ActionType Lesion and Equipment Action# Pressure Duration Attributes Used 13:13:08 Discard INTEGRITY Stent OTW 3.5 X 15 stent ([id number]) 13:16:09 Place stent Dist RCA INTEGRITY 1 14 00:45 OTW 3.5 X 15 stent ([id number]) 13:19:22 Place stent Mid RCA INTEGRITY 1 14 00:45 OTW 4.0 X 30 stent ([id number]) Device Usage Item Name Manufacture Quantity Catalog Hospital Part Current Minimal L ot# / Number Charge Number Stock Stock Serial# Code ACIST Acist 1 89884 736756 088394 365725 20 Syringe Medical (67853) Systems Inc Bag Microtek 1 807881 87344 226887 5 Decanter Medical Inc. () Medline Medline 1 [id number] 365381 81755 420045 5 Cath Pack ([id number]) DIAGNOSTIC St Praveen 1 632121 025641 840752 774157 30 WIRE .035 260cm J wire (865847) ACIST Hand Acist 1 13110 267000 854250 858826 5 Control Medical (22155) Systems Inc ACIST Acist 1 11175 074934 963747 088558 5 Manifold Medical (61231) Systems Inc Tegaderm 4 3M 1 1626W 282526 285444 666914 5 x 4 (1626W) SHEATH 6FR Terumo 1 UKM498 886504 483148 880010 40 Bruceton (ULS961) GUIDE 6FR Medtronic 1 FM3HPSL 302074 83808 152018 1 HS II catheter (UI0WOJE) WHISPER Cloud 1 [id number] 299128 479753 745679 5 300cm guide Vascular wire ([id number]) INFLATOR [facility] 1 UI2354 600419 138636 725493 15 [facility] Medical BasixCompak (WO7982) INTEGRITY Medtronic 1 [id number] 026007 980691 481815 1 0 [id number] OTW 3.5 X 15 stent ([id number]) GUIDE 6FR Medtronic 1 PY0LV67 971735 34323 657079 1 AR 1.0 catheter (CS2LI72) INTEGRITY Medtronic 1 [id number] 384533 157144 092014 1 0 [id number] OTW 4.0 X 30 stent ([id number]) EXOSEAL 6Fr Cardinal 1 EX600 015911 048848 592329 10 (EX600) Health Signature Audit Fitzgerald Stage Time Signature Unsigned Intra-Procedure 09/03/2018 Yannick España RT(R) 1:23:24 PM Signatures Monitor : Yannick España RT Signature : Date : Time : [place] [address] [facility] [place] [address]
[2018-09-03 11:03] VITALS: BP 138/85; Ht 180.3 cm; Wt 93.2 kg
[2018-09-03 11:18] LABS: BASOPHILS 0.8 % (0-2); EOSINOPHILS 2.6 % (0-7); HEMATOCRIT 41.6 % (42.0-54.0); HEMOGLOBIN 14.3 g/dL (13.5-17.5); IMMATURE GRANULOCYTES 1.4 % (0-5); LYMPHOCYTES 19.1 % (15-50); MCH 32.6 pg (26.0-34.0); MCHC 34.4 g/dL (31.0-37.0); MEAN PLATELET VOLUME 9.1 fL (7.4-10.4); MONOCYTES 8.2 % (2-11); NEUTROPHILS 67.9 % (40-80); PLATELET COUNT 148 10x3/uL (130-400); RBC 4.38 10x6/uL (4.20-6.10); RDW 14.4 % (11.5-14.5); WBC 6.6 10x3/uL (4.8-10.8)
[2018-09-03 11:30] LABS: ANION GAP 10.8 mmol/L (8-16); CALCIUM 8.4 mg/dL (8.5-10.1); CARBON DIOXIDE 28.4 mmol/L (21.0-32.0); CREATININE - SERUM 1.1 mg/dL (0.6-1.3); POTASSIUM - SERUM 4.2 mmol/L (3.5-5.1)
--- NOTE | 2018-09-03 13:55 | NUR ---
ROOM AIR, NO RESP DISTRESS. RIGHT GROIN 6F EXOSEAL CDI WITH SMALL HEMATOMA NOTED. FEMSTOP PRESSURE @ 176. VSS. AT BEDSIDE, CALL LIGHT WITHIN REACH.
--- NOTE | 2018-09-03 14:25 | NUR ---
RIGHT GROIN 6F EXOSEAL CDI WITH FEMSTOP IN PLACE @ 176. ROOM AIR WITH NO RESP DISTRESS. NO C/O AT THIS TIME. VSS. WILL CONTINUE TO MONITOR.
--- NOTE | 2018-09-03 14:40 | NUR ---
FEMSTOP PRESSURE DECREASED BY 20 WITH NO BLEEDING NOTED. VSS. AT BEDSIDE. WILL CONTINUE TO MONITOR CLOSELY.
--- NOTE | 2018-09-03 15:00 | NUR ---
FEMSTOP PRESSURE DECREASED BY 20 WITH NO BLEEDING NOTED.
--- NOTE | 2018-09-03 15:30 | NUR ---
FEMSTOP PRESSURE DECREASED BY 30 WITH NO BLEEDING NOTED.
--- NOTE | 2018-09-03 16:15 | NUR ---
FEMSTOP PRESSURE DECREASED BY 30 WITH NO BLEEDING NOTED. VSS. WILL CONTINUE TO MONITOR CLOSELY.
--- NOTE | 2018-09-03 16:33 | NUR ---
REMAINING AIR REMOVED FROM FEMSTOP WITH NO BLEEDING NOTED. VSS. WILL CONTINUE TO MONITOR CLOSELY.
--- NOTE | 2018-09-03 16:55 | NUR ---
HOB ELEVATED 30 DEGREES. RIGHT GROIN 6F EXOSEAL CDI, NO BLEEDING ORH EMATOMA NOTED. SIPPING ON DRINK AND EATING SANDWICH WITH NO C/O NAUSEA. VSS. WILL CONTINUE TO MONITOR.
--- NOTE | 2018-09-03 17:25 | NUR ---
PATIENT SITTING UP IN BED DRINKING COFFEE. VSS ON ROOM AIR. RIGHT GROIN DRESSING IS CDI, NO S/S OF BLEEDING OR HEMATOMA. IV REMOVED. EDUCATION GIVEN TO PATIENT AND FRIEND REGARDING DISCHARGE INSTRUCTIONS AND MEDICATIONS, ALL QUESTIONS ANSWERED.
--- NOTE | 2018-09-03 17:35 | NUR ---
PATIENT TRANSPORTED VIA WHEELCHAIR TO CAR WITH FRIEND DRIVING, ALL BELONGINGS WITH PATIENT.
--- NOTE | 2018-09-06 12:22 | OP ---
PATIENT NAME: ADAM ROUSE MEDICAL RECORD: [id number] :35 LOCATION:D.CAT ADMISSION DATE: SURGEON: SABINE ARREAGA MD DATE OF OPERATION: 09/03/2018 PROCEDURE: FULL STACK JAVA DEVELOPER and stenting of right coronary. DESCRIPTION OF PROCEDURE: After a 6-Greek sheath was placed in the right femoral artery, AR2 guiding catheter out provided excellent guide catheter support followed by 300-cm Whisper wire placed across both lesions of right coronary down this portion of vessel, distal vessel being 90% and proximal being 80%. Distally, I placed a 3.5 x 15-mm Integrity nondrug-eluting stent. Proximally, I placed a 30-mm x 4.0 Integrity nondrug-eluting stent with insufflation at 14 atmospheres for 45 seconds. Final angiography shows excellent resolution of 90% distal stenosis and 80% proximal stenosis with no significant residual. LIZZ flow was 3 throughout the procedure. The patient was previously on Plavix. Heparin was used during the case. Sheath was closed with ExoSeal device. TRANSINT:[id number] Voice Confirmation ID: [id number] DOCUMENT ID: [id number] SABINE ARREAGA MD at 1222 CC: [id number] DICTATION DATE: 09/03/18 1325 NURSE AUDITOR: 09/03/18 1629 DEP CLI 09/03/[address] [address]
--- NOTE | 2018-09-06 12:22 | HP ---
PATIENT: ADAM ROUSE MEDICAL RECORD: [id number] ACCOUNT: [id number] LOCATION:JULI : 35 ADMISSION DATE: 09/03/18 PCP: VERA RODRIGUEZ MD HISTORY AND PHYSICAL EXAMINATION HISTORY OF PRESENT ILLNESS: An 83-year-old gentleman who is well-known to me with history of sick sinus syndrome, status post pacer replacement who is status post intervention LAD, he has been brought back in a staged fashion to his right coronary artery. Most of his angina resolved with the exception of high-end activity with intervention to the LAD, still having some; however, has chest tightness and pressure when trying to work out. PAST MEDICAL HISTORY: 1. History of hypertension. 2. Hyperlipidemia. 3. Sick sinus syndrome, status post pacer replacement. 4. Coronary artery disease as described above. PHYSICAL EXAMINATION: GENERAL: Pleasant gentleman in no acute distress. Appears younger than stated age. HEENT: Normocephalic, atraumatic. NECK: No JVD or bruit. HEART: Irregular, II/ systolic ejection murmur. LUNGS: Good air excursion. ABDOMEN: Soft, nontender. EXTREMITIES: Pulse 2+. No edema. IMPRESSION AND PLAN: Intervention of the right coronary today. TRANSINT:[id number] Voice Confirmation ID: [id number] DOCUMENT ID: [id number] SABINE ARREAGA MD at 1222 CC: [id number] DICTATION DATE: 09/03/18 1323 FLIGHT/TRANSPORT NURSE: 09/03/18 1453 DEP CLI 09/03/18 [place] [address] [place] [address]
== END 2018-09-03 17:35 ==
LOC: D.CATH 10:25
PROVIDERS: Internal Medicine Interventional Cardiology
DX: I25.10 Atherosclerotic heart disease of native coronary artery without angina pectoris (principal); I10 Essential (primary) hypertension; E78.5 Hyperlipidemia, unspecified; Z95.0 Presence of cardiac pacemaker

== ENCOUNTER 2019-02-28 19:05 | Outpatient (CLI) | payer MEDICARE, OTHER ==
[~2019-02-28] VITALS: Ht 180.3 cm; Wt 92.7 kg
--- NOTE | ~2019-02-28 | HEMODYNAMI ---
PATIENT:ADAM ROUSE MEDICAL RECORD: [id number] : 35 LOCATION:[facility] D.2114 [id number] ADMISSION DATE: 02/28/19 Generatedon:03/01/201910:20 Patient name: ADAM ROUSE Patient #: [id number] : 1935 Date of study: 03/01/2019 Page: Of Hemodynamic Procedure Report Patient Data Patient Demographics Procedure consent was obtained First Name: ADAM Gender: Male Last Name: PADMA : 1935 [facility] Initial: L Age: 83 year(s) Patient #: [id number] Race: SSN: [id number] Additional ID: [id number] Contact details Address: [address] [place] [address] [id number] State: [place] City: [facility] Zip code: [address] Past Medical History Allergies: No known allergies Admission Admission Data Admission Date: 02/28/2019 Admission Time: 19:56 Arrival Date: 02/28/2019 Arrival Time: 0:00 Admit Source: Other Insurance Payor: Medicare Room #: D.2114 Height (in.): 71 BSA: 2.13 (m2) Height (cm.): 180.34 BMI: 28.51 (kg/m2) Weight (lbs.): 204.41 Weight (kg.): 92.72 Lab Results Lab Result Date: 03/01/2019 Lab Result Time: 0:00 Biochemistry Name Units Result Min Max BUN mg/dl 14 --(--*-)-- 7 18 Creatinine mg/dl 1.1 --(--*-)-- 0.6 1.3 eGFR ml/min 67.86577 *-(----)-- 90 120 NONAFRICAN CBC Name Units Result Min Max Hemoglobin g/dl 13.6 --(*---)-- 13.5 17.5 Platelets 10^3/l 135 --(*---)-- 130 400 Coagulation Name Units Result Min Max INR units 1.33 --(----)-* 0.85 1.17 Procedure Procedure Types Cath Procedure Diagnostic Procedure [facility] w/Coronaries Sedation Charges Moderate Sedation up to 30 minutes PCI Procedure Coronary Stent Coronary Stent Initial x2 Procedure Description Procedure Date Procedure Date: 03/01/2019 Procedure Start Time: 9:47 Procedure End Time: 10:18 Procedure Staff Name Function Amrit Jarrett MD Performing Physician Chad Byers RT Monitor Pasha Briones RN Nurse Lula Navarro RT Scrub Procedure Data Cath Procedure Fluoroscopy Diagnostic fluoroscopy Total fluoroscopy Time: 5.3 time: 5.3 min min Diagnostic fluoroscopy Total fluoroscopy dose: dose: 1000 mGy 1000 mGy Contrast Material Contrast Material Type Amount (ml) Isovue 300 119 Entry Location Entry Primary Successful Side Size Upsize Upsize Entry Closure Succes sful Closure Location (Fr) 1 (Fr) 2 (Fr) Remarks Device Remarks Femoral Right 5 Fr 6 Fr Exoseal artery Short Estimated blood loss: 10 ml Diagnostic catheters Device Type Used For End Catheter Placement MULTIPACK Pigtail 5 Fr Procedure catheter MULTIPACK JL 4.0 5Fr Procedure catheter MULTIPACK 3DRC 5Fr Procedure catheter Procedure Complications No complications Procedure Medications Medication Administration Route Dosage 0.9% NaCl I.V. 100 ml/hr Oxygen etCO2 Nasal cannula 2 l/min Heparin Flush Bag added to field 2 bags (1000units/500ml NS) Lidocaine 2% added to field 20 Versed I.V. 1 mg Fentanyl I.V. 50 mcg Heparin Bolus I.V. 4000 units Versed I.V. 1 mg Fentanyl I.V. 50 mcg Plavix P.O. 75 mg Hemodynamics Rest BSA: 2.13 (m2) HGB: 13.6 (g/dl) O2 Consumption: Estimated: 235.37 (ml/min) O2 Co nsumption indexed: Estimated:110.5 (ml/min/m) Heart Rate: 61 (bpm) Pressure Samples Time Site Value (mmHg) Purpose Heart Use Rate(bpm) 9:50 AO 115/80(92) Snapshot 74 Snapshots Pre Cath Intra NCS Post Cath Vital Signs Time Heart Resp SPO2 etCO2 NIBP (mmHg) Rhythm Pain Sedation Rate (ipm) (%) (mmHg) Status Level (bpm) 9:34:15 71 15 100 1.4 143/84(128) NSR 0 (11) 10(A) , No pain 9:38:29 66 11 95 38.2 137/91(115) NSR 0 (11) 10(A) , No pain 9:42:41 71 11 95 0 146/92(129) NSR 0 (11) 10(A) , No pain 9:46:57 70 14 93 38.9 123/81(115) NSR 0 (11) 10(A) , No pain 9:51:50 62 13 93 25.4 133/89(99) NSR 0 (11) 10(A) , No pain 9:56:02 68 19 95 29.2 144/93(125) NSR 0 (11) 10(A) , No pain 10:00:20 78 14 95 20.2 149/83(130) NSR 0 (11) 9(A) , No pain 10:04:36 74 15 97 25.5 151/98(119) NSR 0 (11) 9(A) , No pain 10:08:52 71 13 95 39.7 151/97(130) NSR 0 (11) 9(A) , No pain Medications Time Medication Route Dose Verified Delivered Reason Notes Effectiveness by by 9:33:31 0.9% NaCl I.V. 100 Pasha Pasha Per physician ml/hr Anselmo Briones RN RN 9:33:46 Oxygen etCO2 2 Pasha Pasha for low 02 sats Nasal l/min Anselmo Briones cannula RN RN 9:33:57 Heparin Flush added 2 Pasha Pasha used for Bag to bags Anselmo Briones procedure (1000units/500ml field RN RN NS) 9:34:09 Lidocaine 2% added 20ml Pasha Pasha for local to vial Anselmo Briones anesthetic RN RN 9:47:12 Versed I.V. 1 mg Pasha Pasha for sedation Anselmo Briones RN RN 9:47:20 Fentanyl I.V. 50 Pasha Pasha for sedation mcg Anselmo Briones RN RN 9:52:50 Heparin Bolus I.V. 4000 Pasha Pasha for units Anselmo johnson RN RN 9:52:59 Versed I.V. 1 mg Pasha Pasha for sedation Anselmo Briones RN RN 9:53:04 Fentanyl I.V. 50 Pasha Pasha for sedation mcg Anselmo Briones RN RN 10:07:13 Plavix P.O. 75 mg Pasha Pak for Anselmo Briones antiplatelet RN RN therapy Procedure Log Time Note 9:11:42 Procedure Status Urgent Heart Cath (IP). 9:11:46 Chad Modesta RT(R) sent for patient. Start room use. 9:11:48 Time tracking: Call back (After hours or weekends) 9:11:52 Plan of Care:Hemodynamics will remain stable., Cardiac rhythm will remain stable., Comfort level will be maintained., Respiratory function will remain adequate., Patient/ family verbilizes understanding of procedure., Procedure tolerated without complication., Recovers from procedure without complications.. 9:28:50 Patient received from PCU to CCL 1 Alert and oriented. Tansferred to table in Supine position. 9:33:08 Signed procedure consent form obtained from patient. 9:33:08 Warm blankets applied, and torin hugger turned on for patient comfort. 9:33:09 Correct patient and procedure confirmed by team. 9:33:10 ECG and BP/O2 sat monitors applied to patient. 9:33:11 Vital chart was started 9:33:15 Baseline sample Acquired. 9:33:24 Rhythm: paced 9:33:31 0.9% NaCl 100 ml/hr I.V. was administered by Pasha Briones RN; Per physician; 9:33:38 Full Disclosure recording started 9:33:46 Oxygen 2 l/min etCO2 Nasal cannula was administered by Pasha Briones RN; for low 02 sats; 9:33:55 H&P Date Dictated: 03/01/2019 Within 30 days and on chart.. 9:33:56 Pre-procedure instructions explained to patient. 9:33:57 Heparin Flush Bag (1000units/500ml NS) 2 bags added to field was administered by Pasha Briones RN; used for procedure; 9:33:57 Pre-op teaching completed and patient verbalized understanding. 9:34:00 Family in patients room. 9:34:01 Patient NPO since Midnight. 9:34:03 Is the patient allergic to Iodine/contrast media? No. 9:34:04 Is patient on blood thinner?Yes 9:34:07 ACC The patient was administered the following blood thiners within the last 24 hours: ACCPlavix 9:34:09 Lidocaine 2% 20ml vial added to field was administered by Pasha Briones RN; for local anesthetic; 9:34:11 Patient diabetic? No. 9:34:13 Previous problem with sedation/anesthesia? No ? 9:34:14 Snore? Yes 9:34:15 Sleep apnea? No 9:34:16 Deviated septum? No 9:34:17 Opens mouth fully? Yes 9:34:18 Sticks out tongue? Yes 9:34:20 Airway obstruction? No ? 9:34:25 Dentures? Yes OUT 9:34:30 Pre procedure: right dorsailis pedis pulse 1+ Palpable, but thready & weak; easily obliterated 9:34:56 Unable to go radial due to weak pulse. 9:34:59 Patient pain scale 0/10 ?. 9:35:04 IV patent on arrival in left forearm with 0.9% NaCl at O. 9:35:07 Lab results completed and on chart. 9:35:09 Right groin area was prepped with chlora-prep and draped in sterile fashion 9:35:10 Alarms reviewed by R. N. 9:35:11 Sharps counted by scrub and verified by R.N. 9:35:16 Use device set Femoral Dx 9:35:18 Tegaderm 4 x 4 (1626W) opened to sterile field. 9:35:19 ACIST Manifold (55452) opened to sterile field. 9:35:19 ACIST Hand Control (08025) opened to sterile field. 9:35:20 ACIST Syringe (94984) opened to sterile field. 9:35:21 Bag Decanter (2002S) opened to sterile field. 9:35:26 Medline Cath Pack ([id number]) opened to sterile field. 9:35:28 DIAGNOSTIC Multipack 5Fr catheter set (LY3377) opened to sterile field. 9:35:29 SHEATH 5FR Mammoth (RNX908) opened to sterile field. 9:35:29 EMERALD Guide Wire (948-935) opened to sterile field. 9:38:51 Physician paged 9:40:45 Lab Result : BUN 14 mg/dl 9:40:45 Lab Result : Creatinine 1.1 mg/dl 9:40:45 Lab Result : INR 1.33 units 9:40:45 Lab Result : eGFR NONAFRICAN 67.95913 ml/min 9:40:45 Lab Result : Hemoglobin 13.6 g/dl 9:40:45 Lab Result : Platelets 135 10^3/l 9:40:53 Admit Source: Other 9:41:06 Patient Height : 71 inches 9:41:11 Patient Weight : 204.41 lbs 9:41:35 Insurance Payor : Medicare 9:41:59 Arrival Date: 02/28/2019 12:00:00 AM 9:46:36 --------ALL STOP TIME OUT------ 9:46:36 Final Timeout: patient, procedure, and site verified with staff and physician. All members of the team are in agreement. 9:46:38 Right groin site verified by team. 9:46:42 Fire Safety Assessment: A--An alcohol-based skin anteseptic being used preoperatively., C--Open oxygen or nitrous oxide is being used., D--An ESU, laser, or fiber-optic light is being used. 9:46:44 Physical assessment completed. ASA score P 2 - A patient with mild systemic disease as per Amrit Jarrett MD. 9:46:47 2) 60-89 Mildly reduced kidney function, and other findings (as for stage 1) point to kidney disease. 9:46:51 Maximum allowable contrast dose (3.7 X eGFR X 0.75)189 ml. 9:46:55 Sedation plan: IV Moderate Sedation Medication:Versed, Fentanyl 9:47:12 Versed 1 mg I.V. was administered by Pasha Briones RN; for sedation; 9:47:20 Fentanyl 50 mcg I.V. was administered by Pasha Briones RN; for sedation; 9:47:38 Procedure started. 9:47:41 Local anesthetic to right femoral artery with Lidocaine 2% by Amrit Jarrett MD.INITIAL ACCESS ONLY 9:48:03 A 5 Fr sheath was inserted into the Right Femoral artery 9:48:40 A MULTIPACK Pigtail 5 Fr catheter was advanced over the wire and used for Procedure. 9:48:58 LV angiography performed. 9:49:00 LV gram done using MARES 9:49:05 EF : 30 % 9:49:10 Injector settings: Ml/sec: 10, Volume: 20, 9:49:12 Catheter removed. 9:49:23 A MULTIPACK JL 4.0 5Fr catheter was advanced over the wire and used for Procedure. 9:50:07 LCA angiography performed. 9:50:21 Catheter removed. 9:50:27 A MULTIPACK 3DRC 5Fr catheter was advanced over the wire and used for Procedure. 9:50:31 Use device set [facility] PCI 9:50:33 SHEATH 6FR Mammoth (ZGY954) opened to sterile field. 9:50:37 GUIDE 6FR XBLAD 4.0 catheter ([id number]) opened to sterile field. 9:50:39 CHOICE PT Extra Support 182cm wire ([id number]) opened to sterile field. 9:50:41 INFLATOR Merit BasixCompak (PH8215) opened to sterile field. 9:51:24 RCA angiography performed. 9:51:27 Catheter removed. 9:51:34 ACCDominant side:Right 9:51:54 ACC Pre-intervention LIZZ Flow is 3. 9:52:21 Pre PCI Site: [place] Circ has 90% stenosis. 9:52:28 Pre PCI Site: [place] LAD has 90% stenosis. 9:52:37 Sheath upsized to a 6 Fr Short. 9:52:50 Heparin Bolus 4000 units I.V. was administered by Pasha Briones RN; for anticoagulation; 9:52:59 Versed 1 mg I.V. was administered by Pasha Briones RN; for sedation; 9:53:04 Fentanyl 50 mcg I.V. was administered by Pasha Briones RN; for sedation; 9:53:36 6 Fr XBLAD 4 guide catheter was inserted over the wire 9:54:14 CPTXS wire advanced. 9:54:22 Wire advanced across lesion. 9:56:35 Place stent Inflation Number: 1 A ANGIE RX 3.5 x 26 stent ([id number]) was prepped and advanced across the Mid LAD 90. The stent was deployed at 21 LISA for 0:10 (min:sec) 0. 9:56:37 Stent catheter was removed intact over wire. 9:58:19 Place stent Inflation Number: 2 A ANGIE RX 2.75 x 12 stent ([id number]) was prepped and advanced across the Mid LAD 0. The stent was deployed at 15 LISA for 0:10 (min:sec) . 9:58:50 Stent catheter was removed intact over wire. 9:58:59 Post PCI Site: [place] mLAD has 0% stenosis. 9:59:28 Wire redirected to CIRC. 10:00:18 Wire advanced across lesion. 10:02:29 Place stent Inflation Number: 1 A ANGIE RX 2.25 x 12 stent ([id number]) was prepped and advanced across the Mid CX 90. The stent was deployed at 11 LISA for 0:10 (min:sec) 0. 10:02:49 Inflation number: 2 The stent balloon was then re-inflated across the Mid CX 0 to 13 LISA for 0:10 (min:sec) . 10:03:35 Post PCI Site: [place] pCirc has 0% stenosis. 10:03:38 Stent catheter was removed intact over wire. 10:03:39 Wire removed. 10:03:40 Guide catheter removed. 10:03:42 ACC Post-intervention LIZZ Flow is 3. 10:03:49 EXOSEAL 6Fr (EX600) opened to sterile field. 10:04:00 Sheath removed intact; hemostasis achieved with Exoseal to the Right Femoral artery. 10:04:02 Procedure ended.(Physican Out) 10:07:13 Plavix 75 mg P.O. was administered by Pasha Briones RN; for antiplatelet therapy; 10:09:21 Fluoroscopy time 05.30 minutes. 10:09:25 Fluoroscopy dose: 1000 mGy 10::25 Flurop Dose total: 1000 10:09:30 Dose Area Product 56942 mGy/cm. 10:09:35 Contrast amount:Isovue 300 119ml. 10:09:39 Maximum allowable dose exceeded? No. 10:09:41 Sharps counted by scrub and verified by R.N. 10:09:45 Insertion/operative site no bleeding no hematoma. 10:09:48 Post-op/insertion site Right Femoral artery dressed using a 4 x 4 and Tegaderm. 10:09:50 Post Procedure Pulses reassessed and unchanged 10::52 Post-procedure physical assessment completed. ASA score P 2 - A patient with mild systemic disease as per Amrit Jarrett MD. 10:09:55 Post procedure rhythm: unchanged. 10:09:58 Estimated blood loss: 10 ml 10:10:00 Post procedure instruction explained to patient.Patient verbalizes understanding. 10:10:00 Patient needs reinforcement of post procedure teaching. 10:10:12 Procedure type changed to Cath procedure, Diagnostic procedure, LHC, LHC w/Coronaries, Sedation Charges, Moderate Sedation up to 30 minutes, PCI procedure, Coronary Stent, Coronary Stent Initial x2 10:10:14 Procedure and supply charges have been captured, reviewed, submitted and are correct. 10:10:17 Procedure Complication : No complications 10:10:49 Vital chart was stopped 10:11:52 Due to pt's inability to hold legs still and oozing at access site, Femstop applied. 10:11:55 FEMSTOP Gold (W75830) opened to sterile field. 10:17:54 See physician's report for complete and final results. 10:17:56 Report given to PCU. 10:17:59 Patient transfered to PCU with Bed. 10:18:02 Procedure ended. 10:18:02 Full Disclosure recording stopped 10:18:12 ACC-PCI Only Patient was given prescriptions, or instructed by Amrit Jarrett MD to start/continue the following medications upon discharge: Aspirin, Plavix 10:18:14 End room use (Document Last) Intervention Summary Intervention Notes Time ActionType Lesion and Equipment Used Action# Pressure Duration Attributes 9:56:35 Place stent Mid LAD ANGIE RX 3.5 x 1 21 00:10 26 stent ([id number]) 9:58:19 Place stent Mid LAD ANGIE RX 2.75 x 2 15 00:10 12 stent ([id number]) 10:02:29 Place stent Mid CX ANGIE RX 2.25 x 1 11 00:10 12 stent ([id number]) 10:02:49 Reinflate Mid CX ANGIE RX 2.25 x 2 13 00:10 stent 12 stent balloon ([id number]) Device Usage Item Name Manufacture Quantity Catalog Number Hospital Part Current M inimal Lot# / Charge Number Stock Stock Serial# Code Tegaderm 4 x 4 3M 1 1626W [id number] 491719 022468 5 (1626W) ACIST Manifold Acist 1 13580 012893 323787 500802 5 (74919) [employer]Re[employer] Systems Inc ACIST Hand Acist 1 58916 703884 425292 463480 5 Control Medical (19619) Systems Inc ACIST Syringe Acist 1 90458 910588 270954 861898 2 0 (02252) Medical Systems Inc Bag Decanter Microtek 1 2001S 225524 22949 402785 5 () Medical Inc. Medline Cath Medline 1 [id number] 072401 53106 145771 5 Pack ([id number]) DIAGNOSTIC Cardinal 1 DT1874 005098 10011 242766 3 0 Multipack 5Fr Health catheter set (PX2246) SHEATH 5FR Terumo 1 RIY895 903718 062913 429105 5 Mammoth (FRA003) EMERALD Guide Cardinal 1 502-455 389449 406604 128718 5 Wire (502-455) Health MULTIPACK Cardinal 1 607044 5 Pigtail 5 Fr Health catheter MULTIPACK JL Cardinal 1 476185 5 4.0 5Fr Health catheter MULTIPACK 3DRC Cardinal 1 575919 5 5Fr catheter Health SHEATH 6FR Terumo 1 UQY448 683562 990736 044346 4 0 Mammoth (OYV324) GUIDE 6FR Cardinal 1 09118201 928231 010900 177787 3 XBLAD 4.0 Health catheter (50142242) CHOICE PT [place] 1 [id number] 365904 267090 532276 5 Extra Support Scientific 182cm wire ([id number]) INFLATOR Merit Merit 1 VW0651 848624 555061 116862 1 5 [facility] (OF6748) ANGIE RX 3.5 x Medtronic 1 [id number] 101842 9359857 570666 5 [id number] 26 stent ([id number]) ANGIE RX 2.75 x Medtronic 1 [id number] 146718 4257636 807642 5 [id number] 12 stent ([id number]) ANGIE RX 2.25 x Medtronic 1 [id number] 991298 1146928 622618 5 [id number] 12 stent ([id number]) EXOSEAL 6Fr Cardinal 1 EX600 069106 328471 809847 1 0 (EX600) Health FEMSTOP Gold [facility] 1 M75215 622990 738483 540247 5 ([id number]) Signature Audit [place]ink[place] Stage Time Signature Unsigned Intra-Procedure 03/01/2019 Chad Byers 10:20:16 AM RT(R) Signatures Performing Physician : Signature : Amrit Jarrett MD Date : Time : Monitor : Chad Byers RT Signature : Date : Time : Nurse : Pasha Tobiasigan Signature : RN Date : Time : [place] [id number] [address]
--- NOTE | ~2019-02-28 | DS ---
PATIENT:ADAM ROUSE :35 MEDICAL RECORD: [id number] DISCHARGE SUMMARY ADMISSION DATE: 02/28/19 DISCHARGE DATE: 03/01/19 DISCHARGE DIAGNOSES: 1. Percutaneous transluminal coronary angioplasty stent left anterior descending and circumflex this admission. 2. Unstable angina. 3. Coronary artery disease. 4. Hypertension. 5. Hyperlipidemia. HOSPITAL COURSE: Mr. Alves presents with unstable anginal symptomatology, found to have significant disease of the LAD and circumflex, underwent successful PTCA stent of both territories, was discharged home with the addition of aspirin and Plavix to his medical regimen. Follow up with [facility] in [facility] month. TRANSINT:[id number] Voice Confirmation ID: [id number] DOCUMENT ID: [id number] MARILYN PAZ MD CC: [id number] DICTATION DATE: 03/01/19 1009 SHAGGER: 03/01/19 2235 DIS IN 03/01/19 [place] [id number] [place] [id number]
--- NOTE | ~2019-02-28 | OP ---
PATIENT NAME: ADAM ROUSE MEDICAL RECORD: [id number] :35 LOCATION:D.M2 D.2114 ADMISSION DATE:02/28/19 SURGEON: MARILYN PAZ MD DATE OF OPERATION: 03/01/2019 DATE OF SERVICE: 03/01/2019 PROCEDURES: 1. PTCA stent LAD. 2. PTCA stent left circumflex. 3. Left heart catheterization. 4. Selective coronary angiography. 5. Left ventriculogram. INDICATION: Unstable angina and coronary artery disease. PROCEDURE IN DETAIL: After informed consent was obtained and after detailed description of risks, benefits as well as alternative therapies, the patient elected to proceed with angiogram and angioplasty. The right femoral area was prepped and draped in normal sterile fashion. Right femoral artery was cannulated via modified Seldinger technique with placement of 6-Niuean sheath. All catheters exchanged through this sheath. FINDINGS: Left ventriculogram was performed in standard 30-degree MARES view, reveals global hypokinesis, ejection fraction 30% to 35%. SELECTIVE CORONARY ANGIOGRAPHY: 1. Left main is with no significant angiographic disease. 2. Left anterior descending has previously placed stent with 85% to 90% in-stent restenosis. 3. The left circumflex has 90% to 95% stenosis in the mid vessel. 4. Right coronary is large, dominant with no significant disease. PTCA STENT OF THE LAD: The stents used were 3.5 x 26 and 2.75 x 12, both Myles stents. Result was 0% residual stenosis. PTCA STENT OF THE LEFT CIRCUMFLEX: The stent used was a 2.25 x 12 mm [place]. Result was 0% residual stenosis. OVERALL IMPRESSION: Successful percutaneous transluminal coronary angioplasty stent of the left anterior descending and circumflex going from 85% to 90% initial stenosis to 0% residual. TRANSINT:[id number] Voice Confirmation ID: [id number] DOCUMENT ID: [id number] MARILYN PAZ MD CC: [id number] DICTATION DATE: 03/01/19 1011 BUYERS' AGENT: 03/01/19 [address] [place] [address]
[2019-02-28] MEDS ORDERED: COREG6.25 MG PO (19:19)
[2019-02-28 19:50] LABS: BASOPHILS 0.9 % (0-2); EOSINOPHILS 2.9 % (0-7); HEMATOCRIT 38.8 % (42.0-54.0); HEMOGLOBIN 13.6 g/dL (13.5-17.5); IMMATURE GRANULOCYTES 0.9 % (0-5); LYMPHOCYTES 24.3 % (15-50); MCH 33.3 pg (26.0-34.0); MCHC 35.1 g/dL (31.0-37.0); MCV 94.9 fL (80.0-100.0); MONOCYTES 6.9 % (2-11); NEUTROPHILS 64.1 % (40-80); PLATELET COUNT 135 10x3/uL (130-400); RBC 4.09 10x6/uL (4.20-6.10); RDW 14.5 % (11.5-14.5); WBC 5.5 10x3/uL (4.8-10.8)
[2019-02-28 19:58] LABS: INR 1.33 (0.85-1.17); PROTIME 15.9 SECONDS (11.6-15.0)
[2019-02-28 19:59] LABS: APTT 37.2 SECONDS (22.8-39.4)
[2019-02-28 20:03] LABS: ALBUMIN 3.7 g/dL (3.4-5.0); ALKALINE PHOSPHATASE 79 U/L (46-116); ALT (SGPT) 21 U/L (10-68); BILIRUBIN - TOTAL 0.58 mg/dL (0.2-1.3); CALC OSMOLALITY 271 mosm/kg (275-300); CALCIUM 8.4 mg/dL (8.5-10.1); CARBON DIOXIDE 25.8 mmol/L (21.0-32.0); CHLORIDE - SERUM 101 mmol/L (98-107); CREATININE - SERUM 1.1 mg/dL (0.6-1.3); GLUCOSE 119 mg/dL (74-106); POTASSIUM - SERUM 4.6 mmol/L (3.5-5.1); PROTEIN - SERUM 6.3 g/dL (6.4-8.2); SODIUM 135 mmol/L (136-145); UREA NITROGEN 14 mg/dL (7-18); eGFR NON AFRICAN AMERICAN 68 mL/min (90-120)
[2019-02-28 20:22] LABS: CREATINE KINASE 107 UL (21-232); MAGNESIUM - SERUM 2.1 mg/dL (1.8-2.4); PRO BNP 953 pg/mL (0-450)
[2019-02-28 20:23] LABS: CKMB 2.8 U/L (0.0-3.6); TROPONIN-I < 0.017 ng/mL (0.000-0.060)
[2019-02-28 21:17] VITALS: BP 126/77
--- NOTE | 2019-02-28 21:26 | NUR ---
PATIENT ARRIVE FROM THE ER. PATIENT IS ALERT AND ORIENTED, RESTING COMFORTABLY IN BED. RESPIRATIONS ARE EVEN AND UNLABORED. NO S/S OF DISTRESS. NO C/O PAIN. RN FROM ER STATED SHE DID NOT GIVE THE 1952 MEDICATIONS BECAUSE SHE COULD NOT OVERRIDE AND PULL THEM. RN STATED NOT TO GIVE THE PATIENT THE PLAVIX. CALL LIGHT WITHIN REACH. WILL CPOC.
[2019-02-28] MEDS ORDERED: ELIQUIS2.5 MG PO (21:39)
[2019-02-28 22:57] VITALS: BP 150/75; Ht 180.3 cm; Wt 92.7 kg
[2019-03-01] VITALS: BP 148/75
[2019-03-01 04:00] VITALS: BP 156/93
[2019-03-01 08:28] VITALS: BP 160/85
--- NOTE | 2019-03-01 09:28 | NUR ---
PRE-OPS GIVEN. TO ETCHER ENAMELING BY BED.
--- NOTE | 2019-03-01 10:15 | HP ---
PATIENT: ADAM COCHRAN MEDICAL RECORD: [id number] ACCOUNT: [id number] LOCATION:[address] : 35 ADMISSION DATE: 02/28/19 PCP: VERA RODRIGUEZ MD HISTORY AND PHYSICAL EXAMINATION ADMITTING DIAGNOSES: 1. Unstable angina class IV. 2. Coronary artery disease. 3. Previous percutaneous transluminal coronary angioplasty stent, last being in 07/2018. 4. Hypertension. 5. Sick sinus syndrome. 6. Status post pacemaker. 7. Paroxysmal atrial fibrillation. 8. Shortness of breath, dyspnea on exertion. HISTORY OF PRESENT ILLNESS: Mr. Cochran has a past history of coronary artery disease. Last cardiac stenting was in July. At that time, he had severe shortness of breath and chest pressure. It totally resolved after PTCA stent. This began this week having recurrent shortness of breath and chest pressure. It escalated to the point tonight while walking to his neighbor's house, which is approximately 40 yards. He thought that he could not make it. His neighbors helped him into the house and he now presents to the Emergency Room. His EKG has T-wave inversions inferolaterally with mild ST depression. He has a history of atrial fibrillation for which he is on Coreg. He does have a pacemaker. He is as well on an VICK inhibitor for blood pressure. Laboratory values are pending. He still has his symptomatology in the Emergency Room. PHYSICAL EXAMINATION: GENERAL APPEARANCE: Well-nourished, well-developed, appears stated age. Level of distress, comfortable. PSYCHIATRIC: Mental status, alert, normal affect. Orientation, oriented to time, place and person. EYES: Lids and conjunctiva, noninjected. No discharge, no pallor. ENT: Lips, teeth, gums, normal dentition. Oropharynx, no cyanosis, no pallor. NECK: Carotid arteries, bilateral normal upstroke, no bruits, no thrills. JUGULAR VEINS: No jugular venous pressure or distention. CERVICAL LYMPH NODES: Nontender, nonenlarged. THYROID: Not enlarged. Nontender. No nodules. LUNGS: Respiratory effort, unlabored. CHEST: Normal curvature. No thoracic deformity. No chest wall tenderness. Percussion, resonant. Auscultation, clear. No wheezes, no rales, no rhonchi. CARDIOVASCULAR: Precordial exam, nondisplaced. No heaves or pericardial thrills. Rate and rhythm, regular. Heart sounds, normal S1, normal S2. No S3, no gallop, no rub. Systolic murmur, not heard. Diastolic murmur, not heard. EXTREMITIES: No cyanosis, no edema. Peripheral pulses, full and equal in all extremities, except as noted. No bruits appreciated. ABDOMEN: Soft, nondistended. Normal aorta. No bruit. Nontender. No masses. Liver, nontender, no hepatomegaly. Spleen, nontender, no splenomegaly. MUSCULOSKELETAL: No joint tenderness. No joint swelling. No erythema. NEUROLOGICAL: Normal gait, normal strength, normal tone. SKIN: Warm and dry. OVERALL IMPRESSION: Unstable angina with abnormal ECG in a patient with a past history of coronary artery disease. He has had aspirin in the past 24 hours, HISTORY AND PHYSICAL [id number] ADAM COCHRAN hypertension, hyperlipidemia that is diet controlled. Family history of coronary artery disease, most likely he has recurrent hemodynamically significant coronary artery disease. We will proceed with coronary angiography in the a.m. loading him with Plavix at this time. TRANSINT:[id number] Voice Confirmation ID: [id number] DOCUMENT ID: [id number] MARILYN PAZ MD at 1015 CC: [id number] DICTATION DATE: 02/28/192000 BUTTON STATION WORKER: 02/28/19 2144 ADM IN [facility] [address] [place] [address]
--- NOTE | 2019-03-01 10:30 | NUR ---
BACK FROM TENNIS PROFESSIONAL. VS WNL. RIGHT GROIN STABLE WITH TR BAND INTACT. WILL MONITOR.
--- NOTE | 2019-03-01 11:30 | NUR ---
FEMSTOP DCD WITHOUT BLEEDING OR HEMATOMA NOTED.
[2019-03-01 11:35] VITALS: BP 131/79
--- NOTE | 2019-03-01 12:08 | NUR ---
CALLED DR PAZ RE PT ON ELIQUIS. INSTRUCTED TO HAVE PT D/C. TAKE PLAVIX AND BABY ASA DAILY.
[2019-03-01] MEDS ORDERED: PLAVIX75 MG PO (12:09)
[2019-03-01] MEDS ORDERED: BAYER CHEWABLE81 MG PO (12:09)
--- NOTE | 2019-03-01 14:20 | NUR ---
BED REST UP. GROIN STABLE. IV AND TELEMETRY DCD. DC PLANS GIVEN. UNDERSTANDING VOICED. ESCORTED TO CAR BY W/C.
--- NOTE | 2019-03-03 08:28 | MORECARE ---
CASE MANAGEMENT DISCHARGE SUMMARY PATIENT: ADAM ROUSE UNIT: [id number] ADM DATE: 02/28/19 AGE: 83 : 35 SEX: M ROOM/BED: D.2114 AUTHOR: RADHA SANTOS PHYSICIAN: REFERRING PHYSICIAN: MARILYN PAZ MD DATE OF SERVICE: 03/03/19 Discharge Plan Patient Name: ADAM [facility]OUSE [facility] [facility] 1935 Planned Disposition: Home Anticipated Discharge Date: 03/01/19 Discharge Date: 03/01/2019 Expected LOS: 1 Initial Reviewer: [email or web address] Initial Review Date: 03/03/2019 Generated: 03/03/19 9:28 am Patient Name: ADAM ROUSE Page [phone] at 0828 All edits/amendments must be made on the electronic document DICTATION DATE: 03/03/19827 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
== END 2019-03-01 14:21 | disposition home or self-care (01) ==
LOC: OBSVTIME → D.ER 19:05 → D.CATH 19:05 → OBSVTIME 19:56 → D.ER 19:56 → D.M2 19:56 → D.ER 21:17 → D.M2 03-01 14:21 → D.CATH 03-01 14:21
PROVIDERS: Family Medicine; ATTEND Internal Medicine Interventional Cardiology
DX: I25.110 Atherosclerotic heart disease of native coronary artery with unstable angina pectoris (principal); I10 Essential (primary) hypertension; I49.5 Sick sinus syndrome; R06.02 Shortness of breath; Z95.5 Presence of coronary angioplasty implant and graft; I48.0 Paroxysmal atrial fibrillation
CPT/HCPCS: 93458; C9600 ×2

== ENCOUNTER → 2019-04-15 13:53 | Outpatient (CLI) | payer MEDICARE, OTHER ==
[2019-02-28 22:57] VITALS: BMI 28.5
[~2019-04-15 13:53] MED LIST changes: +BAYER CHEWABLE81 MG PO
--- NOTE | 2019-04-18 12:52 | EC ---
PATIENT:ADAM ROUSE DATE OF SERVICE: 04/15/19 SEX: M MEDICAL RECORD: [id number] DATE OF : 35 LOCATION:[facility] AGE OF PATIENT: 84 ADMISSION DATE: 04/15/19 REFERRING PHYSICIAN: INTERPRETING PHYSICIAN: SABINE ARREAGA MD ECHOCARDIOGRAM REPORT ECHO CHARGES 4 ECHO COMPLETE Date: 04/15/19 CLINICAL DIAGNOSIS: CARDIOMYOPATHY/JUNE H/O CAD/A-FIB/HTN ECHOCARDIOGRAPHIC MEASUREMENTS (adult normal given) AC root (d.<3.7cm) 3.6 cm LV Septum d (<1.2 cm> 1.4 cm Valve Excursion 2.2 cm LV Septum (systole) 1.7 cm Left Atria (s.<4.0cm> 6.2 cm LVPW d(<1.2cm) 1.4 cm RV (d.<2.3cm) 3.3 cm LVPW (sytole) 1.9 cm LV diastole(<5.6CM) 5.9 cm MV E-F(>70mm/sec) cm LV systole 4.7 cm LVOT Diameter 2.2 cm MV exc.(>10mm) cm Est.ejection fraction (50-75%) % DOPPLER: LVIT cm/sec A cm/sec E 118 cm/sec LA cm/sec RVSP 46.3 mmHg LVOT 83.0 cm/sec AOP1/2T m/s Asc. Ao 109 cm/sec RVOT 69.0 cm/sec RA cm/sec PA 83.0 cm/sec AV Gradient Peak 4.7 mmHg AV Mean 2.4 mmHg AV Area 2.9 cm MV Gradient Peak 5.0 mmHg MV Mean 1.4 mmHg MV Area cm COMMENTS: OP - HC Senior Medical Billing Specialist: 1 MOHINDER SHAI Banquet Steward: 3 Dr. Shaw TAPE# PACS Pericardial Effusion N DATE OF SERVICE: Adequate 2-D echo, color-flow and spectral Doppler, and M-mode. LVH is present. LV internal dimensions are mildly dilated at 5.9 cm. LV is globally hypokinetic with mildly reduced EF, estimated at 40% to 45%. Aortic valve sclerosis without stenosis by Doppler interrogation. Left atrium is markedly dilated at 6.2 cm. Mitral valve is thickened. Moderate MR. Right-sided chambers are grossly normal. Moderate TR. ECHOCARDIOGRAM REPORT [id number] ADAM ROUSE TRANSINT:[id number] Voice Confirmation ID: [id number] DOCUMENT ID: [id number] SABINE ARREAGA MD at 1252 CC: [id number] DICTATION DATE: 04/17/19 1350 UNDERWRITING SERVICE REPRESENTATIVE: 04/17/19 1518 DEP CLI 04/15/19 [place] [id number] [place] [id number]
== END | disposition home or self-care (01) ==
LOC: D.HCCARDIO 04-01 11:30 → D.HCCECHO 13:53 → D.HCCARDIO 14:00 → D.HCCECHO 14:00
PROVIDERS: ATTEND Internal Medicine Interventional Cardiology
DX: R06.09 Other forms of dyspnea (principal)

== ENCOUNTER → 2019-08-12 12:23 | Outpatient (CLI) | payer MEDICARE, OTHER ==
[2019-02-28 22:57] VITALS: BMI 28.5
--- NOTE | 2019-08-14 13:25 | EC ---
PATIENT:ADAM ROUSE DATE OF SERVICE: 08/12/19 SEX: M MEDICAL RECORD: [id number] DATE OF : 35 LOCATION:[facility] AGE OF PATIENT: 84 ADMISSION DATE: 08/12/19 REFERRING PHYSICIAN: INTERPRETING PHYSICIAN: SABINE ARREAGA MD ECHOCARDIOGRAM REPORT ECHO CHARGES 4 ECHO COMPLETE Date: 08/12/19 CLINICAL DIAGNOSIS: CAD/CARDIOMYOPATHY/MR/TR HX OF AFIB/HTN/PACEMAKER ECHOCARDIOGRAPHIC MEASUREMENTS (adult normal given) AC root (d.<3.7cm) 4.0 cm LV Septum d (<1.2 cm> 1.4 cm Valve Excursion 1.6 cm LV Septum (systole) 1.7 cm Left Atria (s.<4.0cm> 4.9 cm LVPW d(<1.2cm) 1.6 cm RV (d.<2.3cm) 3.9 cm LVPW (sytole) 1.9 cm LV diastole(<5.6CM) 4.8 cm MV E-F(>70mm/sec) cm LV systole 3.6 cm LVOT Diameter 1.7 cm MV exc.(>10mm) 2.0 cm Est.ejection fraction (50-75%) % DOPPLER: LVIT cm/sec A 17.0 cm/sec E 70.0 cm/sec LA cm/sec RVSP 39 mmHg LVOT 55 cm/sec AOP1/2T m/s Asc. Ao 93 cm/sec RVOT 53 cm/sec RA cm/sec PA 81 cm/sec AV Gradient Peak 3.45 mmHg AV Mean 1.77 mmHg AV Area 1.3 cm MV Gradient Peak 4.92 mmHg MV Mean 1.65 mmHg MV Area cm COMMENTS: An/Ssn 2 4 Operator: 2 LO JUAREZ Refrigerated Cargo Clerk: 3 Dr. Shaw TAPE# PACS Pericardial Effusion N DATE OF SERVICE: Adequate 2D, color flow imaging, spectral Doppler, and M-Mode. LVH is present. LV internal dimensions are normal. LV is mildly globally hypo with mild reduced EF, estimated EF 40% to 45%. Aortic valve is sclerosed without stenosis by Doppler interrogation. The left atrium is dilated at 4.9 cm. Mitral valve shows no prolapse. Mild MR. Right-sided chambers are grossly normal. Moderate TR. ECHOCARDIOGRAM REPORT [id number] ADAM ROUSE TRANSINT:[id number] Voice Confirmation ID: [id number] DOCUMENT ID: [id number] SABINE ARREAGA MD at 1325 CC: [id number] DICTATION DATE: 08/12/19 141 VIDEO PRODUCTION SPECIALIST: 08/12/19 194 DEP CLI 08/12/19 [place] [id number] [place] [id number]
== END | disposition home or self-care (01) ==
LOC: D.HCCECHO 12:23
PROVIDERS: ATTEND Internal Medicine Interventional Cardiology
DX: I25.10 Atherosclerotic heart disease of native coronary artery without angina pectoris (principal)

== ENCOUNTER 2019-10-23 11:06 | Outpatient (CLI) | payer MEDICARE, OTHER ==
[~2019-10-23] VITALS: Ht 180.3 cm; Wt 95.0 kg
--- NOTE | ~2019-10-23 | HEMODYNAMI ---
PATIENT:ADAM ROUSE MEDICAL RECORD: [id number] : 35 LOCATION:D.CAT ADMISSION DATE: 10/23/19 Generatedon:10/23/201913:54 Patient name: ADAM ROUSE Patient #: [id number] : 1935 Date of study: 10/23/2019 Page: Of Hemodynamic Procedure Report Patient Data Patient Demographics Procedure consent was obtained First Name: ADAM Gender: Male Last Name: PADMA : 1935 Middle Initial: L Age: 84 year(s) Patient #: [id number] Race: SSN: [id number] Additional ID: [id number] Contact details Address: [address] [place] [address] [address] State: [place] City: [facility] Zip code: [address] Past Medical History Allergies Allergen Reaction Date Comments Reported Other allergy 10/23/2019 NKDA Admission Admission Data Admission Date: 10/23/2019 Admission Time: 11:06 Arrival Date: 10/23/2019 Arrival Time: 0:00 Admit Source: Other Insurance Payor: Medicare [facility] #: [id number] Height (in.): 70.87 BSA: 2.15 (m2) Height (cm.): 180 BMI: 29.32 (kg/m2) Weight (lbs.): 209.44 Weight (kg.): 95 Lab Results Lab Result Date: 10/23/2019 Lab Result Time: 0:00 Biochemistry Name Units Result Min Max BUN mg/dl 10 --(-*--)-- 7 18 Creatinine mg/dl 1 --(--*-)-- 0.6 1.3 eGFR ml/min 76.41597 *-(----)-- 90 120 NONAFRICAN CBC Name Units Result Min Max Hematocrit % 35.7 *-(----)-- 42 54 Hemoglobin g/dl 11.5 *-(----)-- 13.5 17.5 Procedure Procedure Types Cath Procedure Diagnostic Procedure [facility] w/Coronaries Sedation Charges Moderate Sedation up to 15 minutes PCI Procedure Coronary Stent Coronary Stent Initial Hemochron ACT Test Procedure Description Procedure Date Procedure Date: 10/23/2019 Procedure Start Time: 13:26 Procedure End Time: 13:48 Procedure Staff Name Function Nakul Hodgson MD Performing Physician Wandy Melgoza RN Nurse Lula Navarro RT Scrub Marisol Hyde RT Monitor Indication Dyspnea Procedure Data Cath Procedure Fluoroscopy Diagnostic fluoroscopy Total fluoroscopy Time: 2.9 time: 2.9 min min Diagnostic fluoroscopy Total fluoroscopy dose: 744 dose: 744 mGy mGy Contrast Material Contrast Material Type Amount (ml) Isovue 300 83 Entry Location Entry Primary Successful Side Size Upsize Upsize Entry Closure Succes sful Closure Location (Fr) 1 (Fr) 2 (Fr) Remarks Device Remarks Femoral Right 6 Fr Exoseal artery Short Estimated blood loss: 10 ml Diagnostic catheters Device Type Used For End Catheter Placement MULTIPACK JL 4.0 5Fr Left Coronary catheter Angiography MULTIPACK 3DRC 5Fr Right Coronary catheter Angiography MULTIPACK Pigtail 5 Fr LV Angiography catheter Procedure Complications No complications Procedure Medications Medication Administration Route Dosage 0.9% NaCl I.V. 100 ml/hr Oxygen etCO2 Nasal cannula 2 l/min Lidocaine 2% added to field 20 Heparin Flush Bag added to field 2 bags (1000units/500ml NS) Versed I.V. 2 mg Fentanyl I.V. 50 mcg Heparin Bolus I.V. 5000 units Hemodynamics Rest BSA: 2.15 (m2) HGB: 11.5 (g/dl) O2 Consumption: Estimated: 252.28 (ml/min) O2 Co nsumption indexed: Estimated:117.34 (ml/min/m) Heart Rate: 80 (bpm) Pressure Samples Time Site Value (mmHg) Purpose Heart Use Rate(bpm) 13:32 LV 147/28,24 Snapshot 109 Gradients Valve Time Site Site Mean SEP/DFP Peak To Heart Use 1 2 (mmHg) (sec/min) Peak Rate (mmHg) (bpm) Aortic 13:33 LV AO 92 Snapshots Pre Cath Intra NCS Post Cath Vital Signs Time Heart Resp SPO2 etCO2 NIBP (mmHg) Rhythm Pain Sedation Rate (ipm) (%) (mmHg) Status Level (bpm) 13:13:08 78 10 94 0 151/105(130) A-Fib 0 (11) 10(A) , No pain 13:17:18 83 12 100 36.5 152/101(123) A-Fib 0 (11) 10(A) , No pain 13:21:28 95 14 97 19.3 164/105(144) A-Fib 0 (11) 10(A) , No pain 13:26:27 76 15 97 24.5 Measuring A-Fib 0 (11) 10(A) , No pain 13:26:51 90 15 98 32 150/98(128) A-Fib 0 (11) 10(A) , No pain 13:30:59 97 13 97 31.2 142/103(134) A-Fib 0 (11) 9(A) , No pain 13:35:58 105 14 98 26.8 Measuring A-Fib 0 (11) 9(A) , No pain 13:37:01 105 14 97 46.2 155/124(139) A-Fib 0 (11) 9(A) , No pain 13:42:01 100 11 98 32 Measuring A-Fib 0 (11) 9(A) , No pain 13:42:21 81 11 97 31 152/95(132) A-Fib 0 (11) 9(A) , No pain 13:46:31 90 10 98 30.8 152/109(147) A-Fib 0 (11) 9(A) , No pain Medications Time Medication Route Dose Verified Delivered Reason Notes Effectiveness by by 13:12:50 0.9% NaCl I.V. 100 Nakul Wandy used for ml/hr Rema Abad procedure MD MAHMOOD 13:12:59 Oxygen etCO2 2 Nakul Wandy used for Nasal l/min Rema Abad procedure cannula MD MAHMOOD 13:13:04 Lidocaine 2% added 20ml Nakul Mota for local to vial [facility] anesthetic field MD MORRIS 13:13:08 Heparin Flush added 2 Nakul Mota used for Bag to bags [facility] procedure (1000units/500ml field MD MORRIS NS) 13:26:16 Versed I.V. 2 mg Nakul Wandy for sedation St Toni Melgoza MD, RN 13:26:26 Fentanyl I.V. 50 Nakul Wandy for sedation mcg St Toni Melgoza MD, RN 13:35:09 Heparin Bolus I.V. 5000 Nakul Wandy for verif ied units [facility] anticoagulation with Dr. MD MAHMOOD [place] Procedure Log Time Note 12:59:55 Informed consent obtained and on chart 13:00:59 Indication : Dyspnea 13:01:16 Procedure Status Elective Heart Cath (OP). 13:01:22 Lula Navarro RT(R) sent for patient. Start room use. 13:01:24 Time tracking: Regular hours (M-F 7:00 - 5:00) 13:01:35 Plan of Care:Hemodynamics will remain stable., Cardiac rhythm will remain stable., Comfort level will be maintained., Respiratory function will remain adequate., Patient/ family verbilizes understanding of procedure., Procedure tolerated without complication., Recovers from procedure without complications.. 13:04:20 Patient received from Pre/Post Procedure Room to CCL 2 Alert and oriented. Tansferred to table in Supine position. 13:04:21 Warm blankets applied, and otrin hugger turned on for patient comfort. 13:04:22 Correct patient and procedure confirmed by team. 13:04:23 ECG and BP/O2 sat monitors applied to patient. 13:12:01 Vital chart was started 13:12:02 Full Disclosure recording started 13:12:10 H&P Date Dictated: 10/21/2019 Within 30 days and on chart.. 13:12:11 Pre-procedure instructions explained to patient. 13:12:11 Pre-op teaching completed and patient verbalized understanding. 13:12:13 Family unavailable. 13:12:15 Patient NPO since Midnight. 13:12:23 Stress Test: no; N/A ? 13:12:25 Risk of Mortality: 0.3 13:12:28 Risk of blood transfusion: 1.6 13:12:31 Risk of JAMIE: 2.0 13:12:34 Right groin area was prepped with chlora-prep and draped in sterile fashion 13:12:35 Alarms reviewed by R. N. 13:12:35 Sharps counted by scrub and verified by R.N. 13:12:38 Lab results completed and on chart. 13:12:50 0.9% NaCl 100 ml/hr I.V. was administered by Wandy Melgoza RN; used for procedure; Verbal order read back and verified. 13:12:59 Oxygen 2 l/min etCO2 Nasal cannula was administered by Wandy Melgoza RN ; used for procedure; Verbal order read back and verified. 13:13: Lab Result : BUN 10 mg/dl 13:13: Lab Result : Creatinine 1 mg/dl 13:13: Lab Result : eGFR NONAFRICAN 76.15953 ml/min 13:13: Lab Result : Hemoglobin 11.5 g/dl 13:13: Lab Result : Hematocrit 35.7 % 13:13:04 Lidocaine 2% 20ml vial added to field was administered by Nakul Hodgson MD; for local anesthetic; Verbal order read back and verified. 13:13:08 Heparin Flush Bag (1000units/500ml NS) 2 bags added to field was administered by Nakul Hodgson MD; used for procedure; Verbal order read back and verified. 13:13:13 IV patent on arrival in left antecubital with 0.9% NaCl at O. 13:13:44 Baseline sample Acquired. 13:14:14 Rhythm: atrial fibrillation 13:14:47 Patient allergic to Other allergyNKDA 13:14:56 Is the patient allergic to Iodine/contrast media? No. 13:15:04 Was the patient premedicated? Yes 13:15:34 Is patient on blood thinner?Yes 13:15:41 ACC The patient was administered the following blood thiners within the last 24 hours: ACC[place]inas 13:15:51 Patient diabetic? No. 13:15:54 - 13:15:55 ----Pre-sedation anethsthesia assessment.---- 13:16:02 Previous problem with sedation/anesthesia? No ? 13:16:04 Snore? Yes 13:16:32 Sleep apnea? No 13:16:36 Deviated septum? No 13:16:38 Opens mouth fully? Yes 13:16:41 Sticks out tongue? Yes 13:17:10 Airway obstruction? No ? 13:17:18 Dentures? No ? 13:17:31 Pre procedure: right dorsailis pedis pulse 1+ Palpable, but thready & weak; easily obliterated 13:17:50 Use device set Femoral Dx 13:17:52 ACIST Syringe (78192) opened to sterile field. 13:17:53 Bag Decanter (2001S) opened to sterile field. 13:17:54 Medline Cath Pack ([id number]) opened to sterile field. 13:18:00 DIAGNOSTIC Multipack 5Fr catheter set (AC0813) opened to sterile field. 13:18:00 Tegaderm 4 x 4 (1626W) opened to sterile field. 13:18:04 SHEATH 5FR Choudrant (ZPT901) opened to sterile field. 13:18:04 EMERALD Guide Wire (983-415) opened to sterile field. 13:25:28 Physician arrived 13:25:29 --------ALL STOP TIME OUT------ 13:25:30 Final Timeout: patient, procedure, and site verified with staff and physician. All members of the team are in agreement. 13:25:33 Right groin site verified by team. 13:25:39 Fire Safety Assessment: A--An alcohol-based skin anteseptic being used preoperatively., C--Open oxygen or nitrous oxide is being used., D--An ESU, laser, or fiber-optic light is being used. 13:25:46 Physical assessment completed. ASA score P 2 - A patient with mild systemic disease as per Nakul Hodgson MD. 13:25:53 2) 60-89 Mildly reduced kidney function, and other findings (as for stage 1) point to kidney disease. 13:25:58 Maximum allowable contrast dose (3.7 X eGFR X 0.75)211 ml. 13:26:00 SHEATH 6FR Choudrant (BJQ995) opened to sterile field. 13:26:05 Sedation plan: IV Moderate Sedation Medication:Versed, Fentanyl 13:26:12 Procedure started. 13:26:16 Versed 2 mg I.V. was administered by Wandy Melgoza RN; for sedation; Verbal order read back and verified. 13:26:17 Local anesthetic to right femoral artery with Lidocaine 2% by Nakul Muñoz MD.INITIAL ACCESS ONLY 13:26:26 Fentanyl 50 mcg I.V. was administered by Wandy Melgoza RN; for sedation ; Verbal order read back and verified. 13:26:44 A 6 Fr Short sheath was inserted into the Right Femoral artery 13::55 ACIST Hand Control (08650) opened to sterile field. 13::56 ACIST Manifold (20015) opened to sterile field. 13:27:07 Zero performed for pressure channel P1 13:27:17 Zero performed for pressure channel P1 13:27:35 Zero performed for pressure channel P1 13:28:02 Zero performed for pressure channel P1 13:28:10 Zero performed for pressure channel P1 13:28:26 Zero performed for pressure channel P1 13:28:45 A MULTIPACK JL 4.0 5Fr catheter was advanced over the wire and used for Left Coronary Angiography. 13:29:06 LCA angiography performed. 13:29:12 Injector settings: Ml/sec: 3, Volume: 6, 13:29:48 Catheter removed. 13:31:29 A MULTIPACK 3DRC 5Fr catheter was advanced over the wire and used for Right Coronary Angiography. 13:31:35 RCA angiography performed. 13:31:39 Injector settings: Ml/sec: 3, Volume: 6, 13:32:10 Catheter removed. 13:32:16 A MULTIPACK Pigtail 5 Fr catheter was advanced over the wire and used for LV Angiography. 13:32:23 LV gram done using MARES 13:32:35 Injector settings: Ml/sec: 5, Volume: 15, 13:32:55 LV hemodynamics recorded. 13:33:03 EF : 45 % 13:33:18 Catheter removed. 13:34:01 GUIDE 6FR XBLAD 3.5 catheter ([id number]) opened to sterile field. 13:34:11 INFLATOR Merit BasixCompak (FH9834) opened to sterile field. 13:34:20 WHISPER 300cm guide wire ([id number]) opened to sterile field. 13:34:57 Proceeding to intervention. 13:35:09 Heparin Bolus 5000 units I.V. was administered by Wandy Melgoza RN; for anticoagulation; verified with Dr. Shaw Verbal order read back and verified. 13:35:09 6 Fr XBLAD3.5 guide catheter was inserted over the wire 13:35:15 ACC Pre-intervention LIZZ Flow is 3. 13:35:37 Pre PCI Site: [place] pCirc has 80% stenosis. 13:35:49 AYQUWBA300 wire advanced. 13:38:24 Wire removed. 13:38:49 WHISPER 300cm guide wire ([id number]) opened to sterile field. 13:39:06 WHISPER 300 wire advanced. 13:39:10 Wire advanced across lesion. 13:40:41 Place stent Inflation Number: 1 A ANGIE OTW 2.5 x 12 stent ([id number]) was prepped and advanced across the Prox CX . The stent was deployed at 14 LISA for 0:20 (min:sec) . 13:42:05 EXOSEAL 6Fr (EX600) opened to sterile field. 13:42:28 Stent catheter was removed intact over wire. 13:42:32 Wire removed. 13:42:32 Guide catheter removed. 13:42:53 ACC Post-intervention LIZZ Flow is 3. 13:43:04 Post PCI Site: [place] pCirc has 0% stenosis. 13:43:23 Sheath removed intact; hemostasis achieved with Exoseal to the Right Femoral artery. 13:43:28 Procedure ended.(Physican Out) 13:43:47 Contrast amount:Isovue 300 83ml. 13:43:51 Maximum allowable dose exceeded? No. 13:44:02 Fluoroscopy time 02.90 minutes. 13:44:21 Fluoroscopy dose: 744 mGy 13:44:21 Flurop Dose total: 744 13:44:32 Dose Area Product 01149 mGy/cm. 13:44:34 Sharps counted by scrub and verified by R.N. 13:44:37 FEMSTOP Gold (P23033) opened to sterile field. 13:44:41 Insertion/operative site no bleeding no hematoma. 13:44:50 Post-op/insertion site Right Femoral artery dressed using a 4 x 4 and Tegaderm. 13:44:55 Post right femoral artery:stable 13:46:13 Femstop placed over the right femoral artery at 170 mmHg. Hemostasis achieved. 13:46:16 Post Procedure Pulses reassessed and unchanged 13:46:21 Post-procedure physical assessment completed. ASA score P 2 - A patient with mild systemic disease as per Nakul Hodgson MD. 13:46:26 Post procedure rhythm: unchanged. 13:46:30 Estimated blood loss: 10 ml 13:46:32 Post procedure instruction explained to patient.Patient verbalizes understanding. 13:46:33 Patient needs reinforcement of post procedure teaching. 13:47:15 Procedure type changed to Cath procedure, Diagnostic procedure, C, C w/Coronaries, Sedation Charges, Moderate Sedation up to 15 minutes, PCI procedure, Coronary Stent, Coronary Stent Initial, Hemochron ACT Test 13:47:16 ACT drawn and resulted at 240 seconds. (normal therapeutic range 180-24 0 seconds). 13:47:17 Procedure and supply charges have been captured, reviewed, submitted an d are correct. 13:48:01 Procedure Complication : No complications 13:48:05 Vital chart was stopped 13:48:09 [facility] Findings: MVD- PCI performed (see procedure note) 13:48:14 Operative report dictated upon procedure completion. 13:48:14 See physician's report for complete and final results. 13:48:17 Report given to Pre/Post Procedure Room. 13:48:21 Patient transfered to Pre/Post Procedure Room with Stretcher. 13:48:24 Procedure ended. 13:48:24 Full Disclosure recording stopped 13:48:51 ACC-PCI Only Patient was given prescriptions, or instructed by Nakul Hodgson MD to start/continue the following medications upon discharge: Brilinta 13:48:52 End room use (Document Last) 13:49:28 Arrival Date: 10/23/2019 12:00:00 AM 13:52:22 Patient Height : 70.87 inches 13:52:28 Patient Weight : 209.44 lbs 13:52:33 Insurance Payor : Medicare 13:52:35 Admit Source: Other Intervention Summary Intervention Notes Time ActionType Lesion and Equipment Action# Pressure Duration Attributes Used 13:40:41 Place stent Prox CX ANGIE OTW 2.5 1 14 00:20 x 12 stent ([id number]) Device Usage Item Name Manufacture Quantity Catalog Hospital Part Current Minim al Lot# / Number Charge Number Stock Stock Serial# Code ACIST Syringe Acist 1 13663 260871 880733 513241 20 (49094) Medical Systems Inc Bag Decanter Microtek 1 150590 39806 756451 5 () Medical Inc. Medline Cath Medline 1 [id number] 737535 86744 003922 5 Pack ([id number]) DIAGNOSTIC Cardinal 1 PV6006 771375 14110 168710 30 Multipack 5Fr Health catheter set (UG5055) Tegaderm 4 x 3M 1 1626W 345172 245259 426186 5 4 (1626W) SHEATH 5FR Terumo 1 FUR209 554293 280527 674562 5 Choudrant (LSC246) EMERALD Guide Cardinal 1 502-455 808908 355204 302648 5 Wire Health (502-455) ACIST Hand Acist 1 06162 616777 386698 832874 5 Control Medical (98406) Systems Inc ACIST Acist 1 69014 653508 550452 045440 5 Manifold Medical (30472) Systems Inc MULTIPACK JL Cardinal 1 341864 5 4.0 5Fr Health catheter MULTIPACK Cardinal 1 657987 5 3DRC 5Fr Health catheter MULTIPACK Cardinal 1 574653 5 Pigtail 5 Fr Health catheter GUIDE 6FR Cardinal 1 [id number] 885935 601726 420136 10 XBLAD 3.5 Health catheter ([id number]) INFLATOR Pinoccio 1 FS2331 209413 343072 408784 15 Pinoccio Medical BasixCompak (JJ1913) WHISPER 300cm Cloud 2 [id number] 568015 436192 202556 5 guide wire Vascular ([id number]) SHEATH 6FR Terumo 1 DZH431 126072 707592 942376 40 Choudrant (NHS016) ANGIE OTW 2.5 Medtronic 1 [id number] 255266 80626 317546 5 [id number] x 12 stent ([id number]) EXOSEAL 6Fr Cardinal 1 EX600 260707 005569 898976 10 (EX600) Health FEMSTOP Gold St Praveen 1 B47494 576015 095674 356530 5 (B05044) Signature Audit [place] Stage Time Signature Unsigned Intra-Procedure 10/23/2019 Marisol 1:49:15 PM Mary Ellen RT(R) (CV) Intra-Procedure 10/23/2019 Wandy Melgoza 1:53:13 PM RN Intra-Procedure 10/23/2019 Nakul Golden 1:54:13 PM Toni MORRIS Signatures Performing Physician : Signature : Nakul Hodgson MD Date : Time : Nurse : Wandy Abad RN Signature : Date : Time : Monitor : Marisol Signature : Nannemann RT Date : Time : [address] [place] [address]
[2019-10-23] MEDS ORDERED: MELATONIN10 M1 PO (11:32)
[2019-10-23] MEDS ORDERED: BRILINTA90 MG PO (11:32)
[2019-10-23 11:40] VITALS: BP 142/92; Ht 180.3 cm; Wt 95.0 kg
[2019-10-23 12:07] LABS: ALT (SGPT) 40 U/L (10-68); CALC OSMOLALITY 279 mosm/kg (275-300); CALCIUM 8.3 mg/dL (8.5-10.1); CARBON DIOXIDE 26.8 mmol/L (21.0-32.0); CHLORIDE - SERUM 106 mmol/L (98-107); CHOL - HDL RATIO 2.6 ratio (2.3-4.9); CHOLESTEROL, TOTAL 146 mg/dL (0-200); GLUCOSE 95 mg/dL (74-106); HDL CHOLESTEROL 56 mg/dL (32-96); LDL CHOLESTEROL 81 mg/dL (0-100); LDL-HDL RATIO 1.4 ratio (1.5-3.5); POTASSIUM - SERUM 3.7 mmol/L (3.5-5.1); SODIUM 141 mmol/L (136-145); TRIGLYCERIDE 47 mg/dL (30-200); UREA NITROGEN 10 mg/dL (7-18); eGFR NON AFRICAN AMERICAN 76 mL/min (90-120)
[2019-10-23 12:10] LABS: BASOPHILS 0.9 % (0-2); EOSINOPHILS 2.5 % (0-7); HEMATOCRIT 35.7 % (42.0-54.0); HEMOGLOBIN 11.5 g/dL (13.5-17.5); IMMATURE GRANULOCYTES 1.4 % (0-5); LYMPHOCYTES 13.9 % (15-50); MCH 32.7 pg (26.0-34.0); MCHC 32.2 g/dL (31.0-37.0); MCV 101.4 fL (80.0-100.0); MEAN PLATELET VOLUME 10.2 fL (7.4-10.4); MONOCYTES 7.6 % (2-11); NEUTROPHILS 73.7 % (40-80); PLATELET COUNT 118 10x3/uL (130-400); RBC 3.52 10x6/uL (4.20-6.10); RDW 15.8 % (11.5-14.5); WBC 6.5 10x3/uL (4.8-10.8)
--- NOTE | 2019-10-23 13:55 | NUR ---
REC TO ROOM VIA STRETCHER FROM SOLAR SALES REPRESENTATIVE. MONITORING INITIATED. R GROIN CDI, FEMSTOP OVER ACCESS SITE, PT RESTLESS AND MOVING LEGS CONSTANTLY. PPP. C/O PAIN TO RLE, LOOSENED STRAP ON FEMSTOP. SET AT 85MMHG. GROIN REMAINS SOFT, PPP. AFIB 90, SAT 97% 2LNC, RR 18, BP 117/96.
--- NOTE | 2019-10-23 14:14 | NUR ---
R GROIN SOFT, FEMSTOP AT 85MMHG, PPP. NO S/S BLEEDING OR HEMATOMA. SNORING RESPIRATIONS, CONT TO WIGGLE LEGS FREQUENTLY IN HIS SLEEP. REMINDED TO KEEP HEAD ON PILLOW AND RIGHT LEG STRAIGHT. VERBALIZES UNDERSTANDING.
--- NOTE | 2019-10-23 14:45 | NUR ---
r groin soft, no s/s bleeding or hematoma. femstop w 67 mmhg, ppp. pt drowsy, rouses to verbal, requiring frequent reminders to keep rle still. bp 151/96, afib, rate 85, sat 98% on 2lnc with sl irregular, snoring respirations.
--- NOTE | 2019-10-23 14:59 | NUR ---
C/O SOME R SHOULDER "CRAMPING", IMPROVES WITH MASSAGE, COVERED WITH WARM BLANKET, PT STATES FEELS GREAT. R GROIN CDI, SOFT, FEMSTOP DECREASED TO 65MMHG, PPP. NO S/S BLEEDING OR HEMATOMA. REMAINS RESTLESS, VASCILLATES FROM SLEEPING TO RESTLESS AND WAKEFUL. REQUIRES FREQUENT REMINDERS TO KEEP HEAD ON PILLOW AND RLE STILL. ORIENTED TO SELF, PLACE. REMINDED PROCEDURE COMPLETED AND HE IS NOW RECOVERING. BP 145/92, AFIB RATE 82. SAT 98% ON 2LNC.
--- NOTE | 2019-10-23 15:15 | NUR ---
ADE CHAVEZ RN AT [facility] CONTACTED RE PT NEEDING RX FOR BRILINTA TO BE CONTINUED, AND QUESTION RE PT NOT ON FACTOR X INHIBITOR W AFIB. ALSO REC ORDER FOR TYLENOL FOR C/O R SHOULDER PAIN. ADE WILL CALL BACK W CLARIFICATION ON MEDS QUESTIONS.
--- NOTE | 2019-10-23 15:29 | NUR ---
ADE CALLED BACK AFTER SPEAKING TO DR ARREAGA. PER DR ARREAGA, PT IS NOT A CANDIDATE FOR DUAL THERAPY WITH ELIQUIS AND BRILINTA, SO CONTINUE ON BRILINTA FOR NOW, AND LEAVE ON SAME DOSE OF CARVEDILOL PREPROCEDURE. CALLED RX FOR BRILINTA TO [facility] [address] WITH S[facility] REFILLS [facility] PROVIDED DISCOUNT CARD TO PT FOR ASSISTANCE WITH PURCHASING BRILINTA.
--- NOTE | 2019-10-23 15:45 | NUR ---
FEMSTOP REMOVED, PT GIVEN TYLENOL WITH SIPS OF WATER FOR C/O SHOULDER PAIN. PPP. NO S/S BLEEDING OR HEMATOMA R GROIN. BP 144/93, AFIB RATE 95, SAT 95% RA.
--- NOTE | 2019-10-23 16:15 | NUR ---
R GROIN SOFT, NO S/S BLEEDING OR HEMATOMA. PPP. C/O UNCOMFORTABLE STILL, REPOSITIONED WITH DRAW SHEET. VERBALIZED "A LITTLE BETTER". BP 149/101, AFIB RATE 74, SAT 97% RA. INFORMED THIRTY MINUTES UNTIL WE CAN SIT HIM UP AND LET HIM REPOSITION SOME ON HIS OWN. VERBALIZES UNDERSTANDING.
--- NOTE | 2019-10-23 16:43 | NUR ---
PT REPOSITIONED UP TO HEAD OF BED, HOB RAISED TO PT COMFORT. R GROIN REMAINS SOFT, NO S/S BLEEDING OR HEMATOMA. PPP. BP 144/91, AFIB RATE 76. WATER AND PUDDING PROVIDED PER PT REQUEST. NO C/O NAUSEA.
--- NOTE | 2019-10-23 17:15 | NUR ---
R GROIN DRESSING W TINY DOT OF BLOOD. NO SWELLING OR S/S BLEEDING OR HEMATOMA. PER PEDRITO MAHMOOD BLOOD WAS THERE FROM TIME OF DRESSING APPLICATION. NEW CLEAN DRESSING APPLIED PER PEDRITO MAHMOOD. IV DC TIP INTACT. MONITORING DC. SPOKE WITH PT'S FRIEND GLADYS STEVENS AND SHE WILL PICK HIM UP AT ER ENTRANCE AT 1745.
--- NOTE | 2019-10-23 17:40 | NUR ---
R GROIN REMAINS SOFT, NO S/S BLEEDING OR HEMATOMA. DRESSING CDI. PT DRESSED HIMSELF AND AMBULATED TO RESTROOM INDEPENDENTLY. DISCHARGE INSTRUCTIONS DISCUSSED W PT BY PEDRITO MAHMOOD.
--- NOTE | 2019-10-23 17:46 | NUR ---
PT DC VIA WHEELCHAIR TO PRIVATE VEHICLE WITH FRIEND. PT HAS ALL BELONGINGS.
--- NOTE | 2019-10-24 12:10 | OP ---
PATIENT NAME: ADAM ROUSE MEDICAL RECORD: [id number] :35 LOCATION:D.CAT ADMISSION DATE: SURGEON: SABINE ARREAGA MD DATE OF OPERATION: 10/23/2019 PROCEDURE: Left heart catheterization, selective coronary angiography, right femoral artery approach. CATHETERS: A 5-Arabic sheath, 5/4 left and right Gosia, 5/4 pig. The procedure was well tolerated. The patient returned to the polanco, sheath removed. ExoSeal device was placed. FINDINGS: Left ventriculography in 30-degree MARES view shows mild global hypokinesis; however, it is improved from previous 40% to 45%. CORONARY ANATOMY: LEFT MAIN: Left main is free of disease. LAD: Area of previous stenting is widely patent. No evidence of restenosis. CIRCUMFLEX: Circumflex has end-stent restenosis of approximately 80%. RIGHT CORONARY ARTERY: Dominant artery, gives rise to PDA, again is free of disease, percent in-stent restenosis. PLAN: Intervention momentarily. DESCRIPTION OF PROCEDURE: A 6-Arabic sheath was exchanged for a 6-Arabic sheath. XB LAD guiding catheter provided excellent catheter support followed by 300 cm Whisper wire placed across the tightly occluded 80% circumflex this portion of vessel. Stent deployed was a 2.5 x 12 mm Myles drug-eluting stent up to 14 atmospheres for 45 seconds. Final angiography shows excellent resolution of an 80% stenosis, in-stent. There is no significant residual. LIZZ flow was 3 throughout the procedure. Heparin was used during the case. The patient was previously on Brilinta. Sheath closed with ExoSeal device. TRANSINT:[id number] Voice Confirmation ID: [id number] DOCUMENT ID: [id number] SABINE ARREAGA MD at 1210 CC: [id number] DICTATION DATE: 10/23/19 1418 PAINT PREPPER: 10/23/19 1702 DEP CLI 10/23/19 [id number] [place] [address]
== END 2019-10-23 17:45 ==
LOC: D.CATH 11:06
PROVIDERS: ATTEND Internal Medicine Interventional Cardiology
DX: I25.119 Atherosclerotic heart disease of native coronary artery with unspecified angina pectoris (principal); I48.91 Unspecified atrial fibrillation; R06.00 Dyspnea, unspecified; I10 Essential (primary) hypertension; Z95.0 Presence of cardiac pacemaker
CPT/HCPCS: 93458; C9600

== ENCOUNTER 2019-10-25 01:01 | Emergency (ER) | payer MEDICARE, OTHER ==
[~2019-10-25] VITALS: Ht 180.3 cm; Wt 92.1 kg
[~2019-10-25 01:01] MED LIST changes: +BRILINTA90 MG PO; +MELATONIN10 M1 PO
[2019-10-25 01:13] VITALS: Ht 180.3 cm; Wt 92.1 kg
[2019-10-25 01:20] LABS: BASOPHILS 0.7 % (0-2); EOSINOPHILS 2.6 % (0-7); HEMATOCRIT 35.8 % (42.0-54.0); HEMOGLOBIN 11.5 g/dL (13.5-17.5); IMMATURE GRANULOCYTES 1.1 % (0-5); LYMPHOCYTES 14.8 % (15-50); MCH 32.6 pg (26.0-34.0); MCHC 32.1 g/dL (31.0-37.0); MCV 101.4 fL (80.0-100.0); MEAN PLATELET VOLUME 9.6 fL (7.4-10.4); MONOCYTES 8.4 % (2-11); NEUTROPHILS 72.4 % (40-80); PLATELET COUNT 111 10x3/uL (130-400); RBC 3.53 10x6/uL (4.20-6.10); RDW 15.9 % (11.5-14.5)
[2019-10-25 01:28] LABS: CALC OSMOLALITY 272 mosm/kg (275-300); CALCIUM 8.2 mg/dL (8.5-10.1); CARBON DIOXIDE 28.9 mmol/L (21.0-32.0); CHLORIDE - SERUM 102 mmol/L (98-107); GLUCOSE 95 mg/dL (74-106); POTASSIUM - SERUM 3.7 mmol/L (3.5-5.1); SODIUM 137 mmol/L (136-145); UREA NITROGEN 10 mg/dL (7-18); eGFR NON AFRICAN AMERICAN 76 mL/min (90-120)
[2019-10-25 01:31] LABS: APTT 29.6 SECONDS (22.8-39.4); INR 1.19 (0.85-1.17)
[2019-10-25 01:45] LABS: ALBUMIN 3.5 g/dL (3.4-5.0); ALKALINE PHOSPHATASE 113 U/L (30-120); ALT (SGPT) 40 U/L (10-68); BILIRUBIN - TOTAL 0.89 mg/dL (0.2-1.3); CKMB 2.5 U/L (0.0-3.6); CREATINE KINASE 180 UL (21-232); MAGNESIUM - SERUM 1.9 mg/dL (1.8-2.4); PRO BNP 2776 pg/mL (0-450); PROTEIN - SERUM 6.5 g/dL (6.4-8.2); TROPONIN-I 0.019 ng/mL (0.000-0.060)
[2019-10-25 04:40] LABS: CKMB 2.1 U/L (0.0-3.6); CREATINE KINASE 158 UL (21-232); TROPONIN-I < 0.017 ng/mL (0.000-0.060)
[2019-10-25 05:00] VITALS: BP 142/109
== END 2019-10-25 05:00 | disposition home or self-care (01) ==
LOC: D.ER 01:01
PROVIDERS: Emergency Medicine
DX: I25.10 Atherosclerotic heart disease of native coronary artery without angina pectoris (principal); I48.91 Unspecified atrial fibrillation; R94.09 Abnormal results of other function studies of central nervous system; I10 Essential (primary) hypertension; Z95.0 Presence of cardiac pacemaker; G62.9 Polyneuropathy, unspecified; Z72.0 Tobacco use; R06.02 Shortness of breath

== ENCOUNTER 2019-11-10 09:16 | Inpatient (IN) | payer MEDICARE, OTHER ==
[~2019-11-10] VITALS: Ht 180.3 cm; Wt 88.5 kg
[2019-11-10 10:00] VITALS: BP 146/95
[2019-11-10 10:01] LABS: CALC OSMOLALITY 270 mosm/kg (275-300); CALCIUM 8.2 mg/dL (8.5-10.1); CARBON DIOXIDE 28.2 mmol/L (21.0-32.0); CHLORIDE - SERUM 101 mmol/L (98-107); CREATININE - SERUM 1.1 mg/dL (0.6-1.3); GLUCOSE 103 mg/dL (74-106); POTASSIUM - SERUM 3.9 mmol/L (3.5-5.1); SODIUM 136 mmol/L (136-145); UREA NITROGEN 11 mg/dL (7-18); eGFR NON AFRICAN AMERICAN 68 mL/min (90-120)
[2019-11-10 10:05] LABS: BASOPHILS 0.5 % (0-2); EOSINOPHILS 1.1 % (0-7); HEMATOCRIT 33.5 % (42.0-54.0); HEMOGLOBIN 10.6 g/dL (13.5-17.5); IMMATURE GRANULOCYTES 1.9 % (0-5); LYMPHOCYTES 12.4 % (15-50); MCH 32.2 pg (26.0-34.0); MCHC 31.6 g/dL (31.0-37.0); MCV 101.8 fL (80.0-100.0); MEAN PLATELET VOLUME 9.4 fL (7.4-10.4); MONOCYTES 4.8 % (2-11); NEUTROPHILS 79.3 % (40-80); PLATELET COUNT 113 10x3/uL (130-400); RBC 3.29 10x6/uL (4.20-6.10); RDW 15.7 % (11.5-14.5); WBC 6.2 10x3/uL (4.8-10.8)
[2019-11-10] MEDS ORDERED: ELIQUIS5 MG PO (10:07)
[2019-11-10 10:18] LABS: ALBUMIN 3.3 g/dL (3.4-5.0); ALKALINE PHOSPHATASE 101 U/L (30-120); ALT (SGPT) 40 U/L (10-68); CKMB 4.9 U/L (0.0-3.6); CREATINE KINASE 222 UL (21-232); PRO BNP 2367 pg/mL (0-450); PROTEIN - SERUM 6.1 g/dL (6.4-8.2); TROPONIN-I 0.017 ng/mL (0.000-0.060)
[2019-11-10 12:33] VITALS: BP 138/88; BMI 28.2
[2019-11-10 12:40] LABS: INR 1.16 (0.85-1.17); PROTIME 14.7 SECONDS (11.6-15.0)
[2019-11-10 13:19] VITALS: BP 134/78
[2019-11-10 17:47] VITALS: BP 150/88
[2019-11-10 20:00] VITALS: BP 158/84
[2019-11-11 00:57] VITALS: BP 129/83
[2019-11-11 04:57] VITALS: BP 148/81
[2019-11-11 05:34] LABS: BILIRUBIN NEGATIVE (NEGATIVE); GLUCOSE NEGATIVE (NEGATIVE); KETONE NEGATIVE (NEGATIVE); NITRITE NEGATIVE (NEGATIVE); UROBILINOGEN NORMAL (NORMAL)
[2019-11-11 05:35] LABS: BACTERIA FEW /hpf (NEGATIVE); EPITHELIAL CELLS 0-5 /hpf (0-5); WHITE CELLS - URINE 0-5 /hpf (NEGATIVE)
[2019-11-11 05:53] LABS: BASOPHILS 0.5 % (0-2); EOSINOPHILS 1.4 % (0-7); HEMATOCRIT 28.3 % (42.0-54.0); HEMOGLOBIN 8.9 g/dL (13.5-17.5); IMMATURE GRANULOCYTES 1.1 % (0-5); LYMPHOCYTES 7.7 % (15-50); MCH 32.2 pg (26.0-34.0); MCHC 31.4 g/dL (31.0-37.0); MCV 102.5 fL (80.0-100.0); MEAN PLATELET VOLUME 9.6 fL (7.4-10.4); MONOCYTES 6.7 % (2-11); NEUTROPHILS 82.6 % (40-80); PLATELET COUNT 130 10x3/uL (130-400); RBC 2.76 10x6/uL (4.20-6.10); RDW 15.8 % (11.5-14.5)
[2019-11-11 06:09] LABS: WBC 8.5 10x3/uL (4.8-10.8)
[2019-11-11 06:19] LABS: ANION GAP 10.6 mmol/L (8-16); BILIRUBIN - TOTAL 1.29 mg/dL (0.2-1.3); CALCIUM 7.8 mg/dL (8.5-10.1); CARBON DIOXIDE 26.6 mmol/L (21.0-32.0); CREATININE - SERUM 1.2 mg/dL (0.6-1.3); POTASSIUM - SERUM 4.2 mmol/L (3.5-5.1); PROTEIN - SERUM 5.6 g/dL (6.4-8.2)
[2019-11-11 10:22] VITALS: BMI 27.2
[2019-11-11 12:30] VITALS: BP 121/55
--- NOTE | 2019-11-11 13:48 | OP ---
PATIENT NAME: ADAM ROUSE MEDICAL RECORD: [id number] :35 LOCATION:D.MS [id number] ADMISSION DATE:11/10/19 SURGEON: ANDREA VARGAS DO DATE OF OPERATION: 11/11/2019 PROCEDURE PERFORMED: Right obdulio hip arthroplasty. PREOPERATIVE DIAGNOSIS: Right displaced femoral neck fracture. POSTOPERATIVE DIAGNOSIS: Right displaced femoral neck fracture. INDICATIONS: Mr. Rouse is an 84-year-old male who fell onto his right hip yesterday and has had pain ever since. He could not get up and called the ambulance and was taken to the ER. X-ray was taken and seen. He had a right femoral neck fracture. He was on Brilinta and Eliquis. He had stents a couple of weeks ago. I informed him that we really need to get the hip done and get him up moving or he could have severe complications including . He was also aware of the risk of the hip surgery including infection, bleeding, damage to nerves or vessels, need for further surgery, blood clots, and he signed the consent. SURGEON: Andrea Vargas DO DESCRIPTION OF PROCEDURE: The patient was taken to the operative suite, laid in supine position, given general anesthetic and intubated. He was given 2 grams of Ancef preoperatively. The patient was then positioned on the [place] table. The right hip was then prepped and draped in sterile fashion. Timeout was performed, everyone was in agreement of the correct side, site, patient and procedure. We then began by making an incision over the tensor fascia bruno muscle. Careful dissection was made down to the muscle and the fascia was taken into the muscle belly posteriorly, opened up the rectus interval. Rectus interval was then opened and the ascending branch of lateral femoral circumflex artery was tied off along with accompanying veins and coagulated with the Aquamantys. The capsule was then exposed and capsule was opened. A femoral neck, where the fracture was, was removed along with the head and I then began broaching first with a canal finder and cookie cutter and then broaching. I broached up to a 13, got an x-ray as we reduced the hip and needed to take a little more neck and a little bit of varus. Once that was done, I cut the more neck and removed the trials and then broached up to a 16, 16 was trialled with a standard -3 neck and that we needed to go a little longer. We then took out the 16 broach and put in a 17 and put a 17 stem down with a standard neck and a 55 bipolar head and reduced the hip and got x-rays, this was in good position. There were no fracture is seen in the femur along the stem and then this was irrigated out with Betadine solution with 10% povidone iodine and then 500 mL of normal saline, soaked the wound for 3 minutes and then irrigated out with more than a 1 liter of normal saline. We put in Ethan, vancomycin and tobramycin powder and closed the capsule with #2 Ethibond in a [id number] fashion. We then closed the tensor fascia bruno fascia with #1 Vicryl, first in a [id number]-zlbuf and then a running locking stitch. Then, Jax Parrish, certified surgical insurance sales assistant closed the skin with 2-0 Vicryl in an inverted interrupted fashion and 4-0 Monocryl ran on the skin. I then put a Prevena plus VAC on due to he being on 2 different blood thinners to get some oozing to seal it up. The blood loss was approximately 300 mL. He did get 2 units of packed red cells as his hemoglobin was 8.9 prior to starting the surgery. He was then awakened and taken to recovery in stable condition. OPERATIVE REPORT [id number] ADAM ROUSE TRANSINT:[id number] Voice Confirmation ID: [id number] DOCUMENT ID: [id number] ANDREA VARGAS DO at 1348 CC: [id number] DICTATION DATE: 11/11/19940 DENTURE WAXER: 11/11/19 1144 ADM IN [facility] [address] [place] [address]
[2019-11-11 17:16] VITALS: BP 151/69
[2019-11-11 17:31] VITALS: BP 131/68
[2019-11-11 22:05] VITALS: BP 147/72
[2019-11-12 01:08] VITALS: BP 138/68
[2019-11-12 05:38] VITALS: BP 117/67
[2019-11-12 06:31] LABS: BASOPHILS 0.1 % (0-2); EOSINOPHILS 0.2 % (0-7); HEMATOCRIT 24.5 % (42.0-54.0); HEMOGLOBIN 7.9 g/dL (13.5-17.5); IMMATURE GRANULOCYTES 0.6 % (0-5); LYMPHOCYTES 9.7 % (15-50); MCH 31.6 pg (26.0-34.0); MCHC 32.2 g/dL (31.0-37.0); MEAN PLATELET VOLUME 9.8 fL (7.4-10.4); MONOCYTES 9.3 % (2-11); NEUTROPHILS 80.1 % (40-80); PLATELET COUNT 118 10x3/uL (130-400); RDW 16.9 % (11.5-14.5); WBC 8.8 10x3/uL (4.8-10.8)
[2019-11-12 06:47] LABS: % SATURATION 9 % (15-55); IRON 24 ug/dl (35-150); TOTAL IRON BIND CAPACITY 259 ug/dl (260-445); UNSAT IRON BIND CAPACITY 235 ug/dl (150-375)
[2019-11-12 07:07] LABS: ALBUMIN 2.7 g/dL (3.4-5.0); ALKALINE PHOSPHATASE 70 U/L (30-120); ALT (SGPT) 27 U/L (10-68); BILIRUBIN - TOTAL 1.21 mg/dL (0.2-1.3); CALC OSMOLALITY 269 mosm/kg (275-300); CALCIUM 7.9 mg/dL (8.5-10.1); CARBON DIOXIDE 29.1 mmol/L (21.0-32.0); CHLORIDE - SERUM 99 mmol/L (98-107); FERRITIN 118 ng/mL (3-244); GLUCOSE 114 mg/dL (74-106); POTASSIUM - SERUM 4.5 mmol/L (3.5-5.1); PROTEIN - SERUM 5.1 g/dL (6.4-8.2); SODIUM 134 mmol/L (136-145); UREA NITROGEN 16 mg/dL (7-18); eGFR NON AFRICAN AMERICAN 76 mL/min (90-120)
[2019-11-12 09:57] VITALS: BP 122/78
[2019-11-12 14:41] VITALS: BP 127/68
[2019-11-12 17:46] VITALS: BP 116/57
[2019-11-12 17:47] VITALS: Ht 180.3 cm; Wt 88.5 kg
[2019-11-12 20:00] VITALS: BP 110/71
[2019-11-13 04:00] VITALS: BP 116/57
[2019-11-13 07:04] LABS: ALBUMIN 2.6 g/dL (3.4-5.0); ANION GAP 10.6 mmol/L (8-16); BILIRUBIN - TOTAL 1.25 mg/dL (0.2-1.3); CALCIUM 7.6 mg/dL (8.5-10.1); CARBON DIOXIDE 28.3 mmol/L (21.0-32.0); CREATININE - SERUM 1.2 mg/dL (0.6-1.3); HEMATOCRIT 22.2 % (42.0-54.0); MCHC 32.9 g/dL (31.0-37.0); MCV 97.4 fL (80.0-100.0); MEAN PLATELET VOLUME 9.7 fL (7.4-10.4); PLATELET COUNT 124 10x3/uL (130-400); POTASSIUM - SERUM 3.9 mmol/L (3.5-5.1); PROTEIN - SERUM 4.8 g/dL (6.4-8.2); RBC 2.28 10x6/uL (4.20-6.10); RDW 16.2 % (11.5-14.5); WBC 8.4 10x3/uL (4.8-10.8)
[2019-11-13 07:09] LABS: HEMOGLOBIN 7.3 g/dL (13.5-17.5)
[2019-11-13 08:49] VITALS: BP 120/67
[2019-11-13 12:17] VITALS: BP 113/60
[2019-11-13 14:57] LABS: EOSINOPHILS 3 % (0-7); LYMPHOCYTES 10 % (15-50); MONOCYTES 8 % (2-11); NEUTROPHILS 73 % (40-80); PLATELET ESTIMATE DECREASED
[2019-11-13 17:05] VITALS: BP 116/69
[2019-11-13 20:00] VITALS: BP 121/80
[2019-11-14 04:00] VITALS: BP 120/76
[2019-11-14 05:18] LABS: BASOPHILS 0.3 % (0-2); EOSINOPHILS 1.8 % (0-7); HEMOGLOBIN 8.5 g/dL (13.5-17.5); IMMATURE GRANULOCYTES 1.9 % (0-5); LYMPHOCYTES 14.2 % (15-50); MCHC 31.8 g/dL (31.0-37.0); MEAN PLATELET VOLUME 9.1 fL (7.4-10.4); MONOCYTES 9.7 % (2-11); NEUTROPHILS 72.1 % (40-80); PLATELET COUNT 124 10x3/uL (130-400); RDW 17.7 % (11.5-14.5); WBC 7.3 10x3/uL (4.8-10.8)
[2019-11-14 05:27] LABS: RBC 2.83 10x6/uL (4.20-6.10)
[2019-11-14 05:28] LABS: HEMATOCRIT 26.7 % (42.0-54.0); MCV 94.3 fL (80.0-100.0)
[2019-11-14 05:40] LABS: ALBUMIN 2.5 g/dL (3.4-5.0); BILIRUBIN - TOTAL 2.09 mg/dL (0.2-1.3); CALCIUM 7.4 mg/dL (8.5-10.1); CARBON DIOXIDE 28.6 mmol/L (21.0-32.0); CREATININE - SERUM 1.2 mg/dL (0.6-1.3); POTASSIUM - SERUM 3.6 mmol/L (3.5-5.1); PROTEIN - SERUM 4.8 g/dL (6.4-8.2)
[2019-11-14 09:00] VITALS: BP 161/88
[2019-11-14 13:00] VITALS: BP 120/74
--- NOTE | 2019-11-14 14:47 | MORECARE ---
CASE MANAGEMENT DISCHARGE SUMMARY PATIENT: ADAM ROUSE UNIT: [id number] ADM DATE: 11/10/19 AGE: 84 : 35 SEX: M ROOM/BED: D.2229 AUTHOR: RADHA SANTOS PHYSICIAN: REFERRING PHYSICIAN: OZZY HEWITT MD DATE OF SERVICE: 11/14/19 Discharge Plan Patient Name: ADAM ROUSE [facility] [facility] 1935 Planned Disposition: Inpatient Rehab Anticipated Discharge Date: Discharge Date: Expected LOS: Initial Reviewer: [id number] Initial Review Date: 11/10/2019 Generated: 11/14/19 3:46 pm DCPIA - Discharge Planning Initial Assessment Updated by [email or web address]: Michelle Munoz on 11/14/19 2:46 pm * Is the patient Alert and Oriented? Yes * How many steps to enter\exit or inside your home? * PCP RISA ROBERTSON * Pharmacy [facility] * Preadmission Environment Home Alone * ADLs Independent * Equipment Cane * List name and contact numbers for known caregivers / representatives who currently or will assist patient after discharge: URI LO [phone] * Verbal permission to speak to the caregivers and representatives has been obtained from the patient. N/A * Community resources currently utilized None * Additional services required to return to the preadmission environment? Yes * Can the patient safely return to the preadmission environment? No * Has this patient been hospitalized within the prior 30 days at any hospital? No Patient Name: ADAM ROUSE Page 18888 at 1447 All edits/amendments must be made on the electronic document DICTATION DATE: 11/14/19 1446 RANCH HELPER: ADAM 11/14/19 1446 RPT#: [id number] DC DATE: STATUS: ADM IN [facility] [address] [place] [address] END OF REPORT
--- NOTE | 2019-11-14 14:53 | MORECARE ---
CASE MANAGEMENT DISCHARGE SUMMARY PATIENT: ADAM ROUSE UNIT: [id number] ADM DATE: 11/10/19 AGE: 84 : 35 SEX: M ROOM/BED: D.2229 AUTHOR: DANIELLE,DOC PHYSICIAN: REFERRING PHYSICIAN: OZZY HEWITT MD DATE OF SERVICE: 11/14/19 Discharge Plan Patient Name: ADAM ROUSE Facility: [facility]:[place] : 1935 Planned Disposition: Inpatient Rehab Anticipated Discharge Date: Discharge Date: Expected LOS: Initial Reviewer: [email or web address] Initial Review Date: 11/10/2019 Generated: 11/14/19 3:53 pm Comments DCP- Discharge Planning Updated by [id number]: Michelle Munoz on 11/14/19 1:[address] Patient Name: ADAM ROUSE Admission Status: ER Accout number: [id number] Admission Date: 11-10-2019 : 1935 Admission Diagnosis:FRACTURE OF UNSP PART OF NECK OF RIGHT FEMUR, INIT Attending: KASH, Current LOS: 4 Anticipated DC Date: Planned Disposition: Inpatient Rehab Primary Insurance: MEDICARE A & B Discharge Planning Comments: CM met with patient to complete initial dc planning assessment. CM educated patient on the CM role and verbal consent given by patient to complete assessment. Patient lives at home where he is independent with his care. At discharge patient plans to return home and feels this is a safe discharge. 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 CM discussed availability of home health, rehab services, and medical equipment. He would like to go to inpatient rehab at [facility]. LUCHO signed and IMM given and explained. Patient denied known discharge needs at this time. CM will continue to follow and will assist as needed with dc plans/needs. Brokerage Branch Manager: Michelle Munoz DCPIA - Discharge Planning Initial Assessment Updated by [email or web address]: Michelle Munoz on 11/14/19 2:46 pm * Is the patient Alert and Oriented? Yes * How many steps to enter\exit or inside your home? * PCP RISA ROBERTSON * Pharmacy [facility] * Preadmission Environment Home Alone * ADLs Independent * Equipment Cane * List name and contact numbers for known caregivers / representatives who currently or will assist patient after discharge: URI LO [phone] * Verbal permission to speak to the caregivers and representatives has been obtained from the patient. N/A * Community resources currently utilized None * Additional services required to return to the preadmission environment? Yes * Can the patient safely return to the preadmission environment? No * Has this patient been hospitalized within the prior 30 days at any hospital? No Coverage Notice Reviewer: [email or web address] Munoz Notice Issued Date-Time: 11/14/2019 13:40 Notice Type: IM Discharge Notice Notice Delivered To: Patient Relationship to Patient: Distance Learning Technician Name: Delivery Method: HAND - Hand Delivered Sonya Days: Prior Verbal Notification: Recipient Understood Notice: Yes Recipient Signature: Yes Med Rec Note Co-signed by Attending: Coverage Notice Comment: Reviewer: [id number] Munoz Notice Issued Date-Time: 11/14/2019 13:40 Notice Type: Patient Choice Letter Notice Delivered To: Patient Relationship to Patient: Distance Learning Technician Name: Delivery Method: HAND - Hand Delivered Sonya Days: Prior Verbal Notification: Recipient Understood Notice: Yes Recipient Signature: Yes Med Rec Note Co-signed by Attending: Coverage Notice Comment: lucho - inpatient rehab at [facility] Last DP export: 11/14/19 1:47 p Patient Name: ADAM ROUSE Page 11233 at 1453 All edits/amendments must be made on the electronic document DICTATION DATE: 11/14/191452 INSTRUCTIONAL TECHNOLOGY TEACHER: ADAM 11/14/19 145 RPT#: [id number] DC DATE: STATUS: ADM IN [facility] [address] [place] [address] END OF REPORT
[2019-11-14 20:30] VITALS: BP 132/73; BP 174/82
[2019-11-15 00:56] VITALS: BP 114/68
[2019-11-15 04:01] VITALS: BP 122/80
[2019-11-15 05:08] LABS: BASOPHILS 0.3 % (0-2); EOSINOPHILS 3.3 % (0-7); HEMATOCRIT 26.7 % (42.0-54.0); HEMOGLOBIN 8.6 g/dL (13.5-17.5); IMMATURE GRANULOCYTES 2.7 % (0-5); LYMPHOCYTES 16.2 % (15-50); MCH 30.6 pg (26.0-34.0); MCHC 32.2 g/dL (31.0-37.0); MEAN PLATELET VOLUME 9.1 fL (7.4-10.4); NEUTROPHILS 66.5 % (40-80); PLATELET COUNT 137 10x3/uL (130-400); RBC 2.81 10x6/uL (4.20-6.10); RDW 17.3 % (11.5-14.5)
[2019-11-15 05:58] LABS: ALBUMIN 2.5 g/dL (3.4-5.0); ANION GAP 9.2 mmol/L (8-16); BILIRUBIN - TOTAL 2.32 mg/dL (0.2-1.3); CALCIUM 7.7 mg/dL (8.5-10.1); CARBON DIOXIDE 29.3 mmol/L (21.0-32.0); CREATININE - SERUM 1.1 mg/dL (0.6-1.3); POTASSIUM - SERUM 3.5 mmol/L (3.5-5.1)
[2019-11-15 08:12] VITALS: BP 124/67
[2019-11-15 11:38] VITALS: BP 126/65
[2019-11-15 16:00] VITALS: BP 131/77
[2019-11-15 20:00] VITALS: BP 139/70
[2019-11-16] VITALS: BP 122/71
[2019-11-16 04:00] VITALS: BP 124/68
[2019-11-16 05:42] LABS: BASOPHILS 0.4 % (0-2); EOSINOPHILS 2.2 % (0-7); HEMOGLOBIN 8.7 g/dL (13.5-17.5); IMMATURE GRANULOCYTES 4.6 % (0-5); LYMPHOCYTES 13.8 % (15-50); MCH 30.6 pg (26.0-34.0); MCHC 32.2 g/dL (31.0-37.0); MCV 95.1 fL (80.0-100.0); MONOCYTES 12.5 % (2-11); NEUTROPHILS 66.5 % (40-80); PLATELET COUNT 161 10x3/uL (130-400); RBC 2.84 10x6/uL (4.20-6.10); WBC 6.8 10x3/uL (4.8-10.8)
[2019-11-16 06:02] LABS: ALBUMIN 2.5 g/dL (3.4-5.0); BILIRUBIN - TOTAL 3.04 mg/dL (0.2-1.3); CALCIUM 7.7 mg/dL (8.5-10.1); CARBON DIOXIDE 30.4 mmol/L (21.0-32.0); CREATININE - SERUM 1.1 mg/dL (0.6-1.3); POTASSIUM - SERUM 3.4 mmol/L (3.5-5.1); PROTEIN - SERUM 5.1 g/dL (6.4-8.2)
[2019-11-16 09:00] VITALS: BP 123/58
[2019-11-16 15:17] VITALS: BP 142/76
[2019-11-16 16:26] VITALS: BP 133/89
[2019-11-16 21:14] VITALS: BP 114/62
[2019-11-17 01:01] VITALS: BP 117/67
[2019-11-17 04:32] VITALS: BP 129/84
[2019-11-17 05:33] LABS: BASOPHILS 0.5 % (0-2); HEMATOCRIT 28.1 % (42.0-54.0); IMMATURE GRANULOCYTES 5.3 % (0-5); LYMPHOCYTES 11.7 % (15-50); MCH 31.1 pg (26.0-34.0); MONOCYTES 11.7 % (2-11); NEUTROPHILS 67.8 % (40-80); PLATELET COUNT 192 10x3/uL (130-400); RBC 2.89 10x6/uL (4.20-6.10); RDW 17.1 % (11.5-14.5); WBC 8.5 10x3/uL (4.8-10.8)
[2019-11-17 05:58] LABS: ALBUMIN 2.6 g/dL (3.4-5.0); ANION GAP 8.9 mmol/L (8-16); BILIRUBIN - TOTAL 3.19 mg/dL (0.2-1.3); CALCIUM 7.7 mg/dL (8.5-10.1); CARBON DIOXIDE 29.8 mmol/L (21.0-32.0); CREATININE - SERUM 1.1 mg/dL (0.6-1.3); POTASSIUM - SERUM 3.7 mmol/L (3.5-5.1); PROTEIN - SERUM 5.3 g/dL (6.4-8.2)
[2019-11-17 06:01] LABS: MCV 97.2 fL (80.0-100.0)
[2019-11-17 07:18] VITALS: BP 130/76
[2019-11-17 12:30] VITALS: BP 109/72
--- NOTE | 2019-11-17 13:21 | MORECARE ---
CASE MANAGEMENT DISCHARGE SUMMARY PATIENT: ADAM ROUSE UNIT: [id number] ADM DATE: 11/10/19 AGE: 84 : 35 SEX: M ROOM/BED: D.2229 AUTHOR: DAINELLE,DOC PHYSICIAN: REFERRING PHYSICIAN: OZZY HEWITT MD DATE OF SERVICE: 11/17/19 Discharge Plan Patient Name: ADAM ROUSE Facility: [facility]:[place] : 1935 Planned Disposition: Inpatient Rehab Anticipated Discharge Date: Discharge Date: Expected LOS: Initial Reviewer: [email or web address] Initial Review Date: 11/10/2019 Generated: 11/17/19 2:20 pm Comments DCP- Discharge Planning Updated by [id number]: Michelle Munoz on 11/17/19 12:[address] IMM SERVED AND EXPLAINED,PATIENT TO BE DISCHARGED TO [facility] TODAY DCP- Discharge Planning Updated by [id number]: Michelle Munoz on 11/14/19 1:[address] Patient Name: ADAM ROUSE Admission Status: ER Accout number: [id number] Admission Date: 11-10-2019 : 1935 Admission Diagnosis:FRACTURE OF UNSP PART OF NECK OF RIGHT FEMUR, INIT Attending: KASH, Current LOS: 4 Anticipated DC Date: Planned Disposition: Inpatient Rehab Primary Insurance: MEDICARE A & B Discharge Planning Comments: CM met with patient to complete initial dc planning assessment. CM educated patient on the CM role and verbal consent given by patient to complete assessment. Patient lives at home where he is independent with his care. At discharge patient plans to return home and feels this is a safe discharge. 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 CM discussed availability of home health, rehab services, and medical equipment. He would like to go to inpatient rehab at [facility]. LUCHO signed and IMM given and explained. Patient denied known discharge needs at this time. CM will continue to follow and will assist as needed with dc plans/needs. Surgical Orderly: Michelle Munoz DCPIA - Discharge Planning Initial Assessment Updated by [email or web address]: Michelle Munoz on 11/14/19 2:46 pm * Is the patient Alert and Oriented? Yes * How many steps to enter\exit or inside your home? * PCP RISA ROBERTSON * Pharmacy [facility] * Preadmission Environment Home Alone * ADLs Independent * Equipment Cane * List name and contact numbers for known caregivers / representatives who currently or will assist patient after discharge: URI LO [phone] * Verbal permission to speak to the caregivers and representatives has been obtained from the patient. N/A * Community resources currently utilized None * Additional services required to return to the preadmission environment? Yes * Can the patient safely return to the preadmission environment? No * Has this patient been hospitalized within the prior 30 days at any hospital? No Coverage Notice Reviewer: [id number] Brunilda Munoz Notice Issued Date-Time: 11/14/2019 12:40 Notice Type: IM Discharge Notice Notice Delivered To: Patient Relationship to Patient: Twenty One Dealer Name: Delivery Method: HAND - Hand Delivered Sonya Days: Prior Verbal Notification: Recipient Understood Notice: Yes Recipient Signature: Yes Med Rec Note Co-signed by Attending: Coverage Notice Comment: Reviewer: [id number] Munoz Notice Issued Date-Time: 11/14/2019 13:40 Notice Type: Patient Choice Letter Notice Delivered To: Patient Relationship to Patient: Twenty One Dealer Name: Delivery Method: HAND - Hand Delivered Sonya Days: Prior Verbal Notification: Recipient Understood Notice: Yes Recipient Signature: Yes Med Rec Note Co-signed by Attending: Coverage Notice Comment: lucho - inpatient rehab at [facility] Last DP export: 11/14/19 1:53 p Patient Name: ADAM ROUSE Page 76902 at 1321 All edits/amendments must be made on the electronic document DICTATION DATE: 11/17/19 1321 PRIMER INSERTING MACHINE OPERATOR: ADAM 11/17/19 1321 RPT#: [id number] DC DATE: STATUS: ADM IN [facility] [address] [place] [address] END OF REPORT
[2019-11-17 17:03] VITALS: BP 116/74
--- NOTE | 2019-11-18 09:25 | MORECARE ---
CASE MANAGEMENT DISCHARGE SUMMARY PATIENT: ADAM ROUSE UNIT: [id number] ADM DATE: 11/10/19 AGE: 84 : 35 SEX: M ROOM/BED: D.2229 AUTHOR: DANIELLE,DOC PHYSICIAN: REFERRING PHYSICIAN: OZZY HEWITT MD DATE OF SERVICE: 11/18/19 Discharge Plan Patient Name: ADAM ROUSE Facility: [facility]:[place] : 1935 Planned Disposition: Inpatient Rehab Anticipated Discharge Date: Discharge Date: 11/17/2019 Expected LOS: Initial Reviewer: [email or web address] Initial Review Date: 11/10/2019 Generated: 11/18/19 10:25 am Comments DCP- Discharge Planning Updated by [id number]: Michelle Munoz on 11/17/19 12:[address] IMM SERVED AND EXPLAINED,[facility] TODAY DCP- Discharge Planning Updated by [id number]: Michelle Munoz on 11/14/19 1:[address] Patient Name: ADAM ROUSE Admission Status: ER Accout number: [id number] Admission Date: 11-10-2019 : 1935 Admission Diagnosis:FRACTURE OF UNSP PART OF NECK OF RIGHT FEMUR, INIT Attending: KASH, Current LOS: 4 Anticipated DC Date: Planned Disposition: Inpatient Rehab Primary Insurance: MEDICARE A & B Discharge Planning Comments: CM met with patient to complete initial dc planning assessment. CM educated patient on the CM role and verbal consent given by patient to complete assessment. Patient lives at home where he is independent with his care. At discharge patient plans to return home and feels this is a safe discharge. 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 CM discussed availability of home health, rehab services, and medical equipment. He would like to go to inpatient rehab at [facility]. LUCHO signed and IMM given and explained. Patient denied known discharge needs at this time. CM will continue to follow and will assist as needed with dc plans/needs. Credit Union Examiner: Michelle Munoz DCPIA - Discharge Planning Initial Assessment Updated by [id number]: Michelle Munoz on 11/14/19 2:46 pm * Is the patient Alert and Oriented? Yes * How many steps to enter\exit or inside your home? * PCP RISA ROBERTSON * Pharmacy [facility] * Preadmission Environment Home Alone * ADLs Independent * Equipment Cane * List name and contact numbers for known caregivers / representatives who currently or will assist patient after discharge: URI LO [phone] * Verbal permission to speak to the caregivers and representatives has been obtained from the patient. N/A * Community resources currently utilized None * Additional services required to return to the preadmission environment? Yes * Can the patient safely return to the preadmission environment? No * Has this patient been hospitalized within the prior 30 days at any hospital? No Coverage Notice Reviewer: [id number] Brunilda Munoz Notice Issued Date-Time: 11/14/2019 12:40 Notice Type: IM Discharge Notice Notice Delivered To: Patient Relationship to Patient: Duco Polisher Name: Delivery Method: HAND - Hand Delivered Sonya Days: Prior Verbal Notification: Recipient Understood Notice: Yes Recipient Signature: Yes Med Rec Note Co-signed by Attending: Coverage Notice Comment: Reviewer: [id number] Munoz Notice Issued Date-Time: 11/14/2019 13:40 Notice Type: Patient Choice Letter Notice Delivered To: Patient Relationship to Patient: Duco Polisher Name: Delivery Method: HAND - Hand Delivered Sonya Days: Prior Verbal Notification: Recipient Understood Notice: Yes Recipient Signature: Yes Med Rec Note Co-signed by Attending: Coverage Notice Comment: lucho - inpatient rehab at [facility] Last DP export: 11/17/19 12:21 p Patient Name: ADAM ROUSE Page [phone] at 0925 All edits/amendments must be made on the electronic document DICTATION DATE: 11/18/19924 STAVE MACHINE TENDER: DM 11/18/19924 RPT#: [id number] DC DATE:11/17/19 STATUS: DIS IN [facility] [address] [facility] [place] [address] END OF REPORT
== END 2019-11-17 18:37 | DRG 470 ==
LOC: D.ER 09:16 → D.MS 10:51
PROVIDERS: Family Medicine; Orthopaedic Surgery; ADMIT Family Medicine; ATTEND Family Medicine
PROC: 0SRR0JZ Replacement of Right Hip Joint, Femoral Surface with Synthetic Substitute, Open Approach (ICD-10-PCS; principal; 2019-11-11 07:00)
DX: S72.001A Fracture of unspecified part of neck of right femur, initial encounter for closed fracture (principal); F17.203 Nicotine dependence unspecified, with withdrawal; D62 Acute posthemorrhagic anemia; J98.11 Atelectasis; W19.XXXA Unspecified fall, initial encounter; I10 Essential (primary) hypertension; I25.10 Atherosclerotic heart disease of native coronary artery without angina pectoris; I48.91 Unspecified atrial fibrillation; E78.5 Hyperlipidemia, unspecified; D53.9 Nutritional anemia, unspecified; D69.6 Thrombocytopenia, unspecified; F32.9 Major depressive disorder, single episode, unspecified; W01.0XXA Fall on same level from slipping, tripping and stumbling without subsequent striking against object, initial encounter; I25.5 Ischemic cardiomyopathy; S30.1XXA Contusion of abdominal wall, initial encounter; Z95.0 Presence of cardiac pacemaker; D45 Polycythemia vera; I71.4 Abdominal aortic aneurysm, without rupture

== ENCOUNTER 2019-11-17 15:50 | Inpatient (IN) | payer MEDICARE, OTHER ==
[~2019-11-17] VITALS: Ht 180.3 cm; Wt 88.5 kg
[~2019-11-17 15:50] MED LIST changes: +ELIQUIS5 MG PO
[2019-11-17 20:00] VITALS: BP 125/60
[2019-11-17 22:03] VITALS: BP 125/60
[2019-11-18 06:45] LABS: BASOPHILS 0.6 % (0-2); EOSINOPHILS 1.9 % (0-7); HEMATOCRIT 31.7 % (42.0-54.0); HEMOGLOBIN 10.2 g/dL (13.5-17.5); LYMPHOCYTES 10.3 % (15-50); MCH 31.7 pg (26.0-34.0); MCHC 32.2 g/dL (31.0-37.0); MCV 98.4 fL (80.0-100.0); MEAN PLATELET VOLUME 9.1 fL (7.4-10.4); MONOCYTES 10.5 % (2-11); NEUTROPHILS 70.7 % (40-80); RBC 3.22 10x6/uL (4.20-6.10); RDW 17.3 % (11.5-14.5); WBC 9.1 10x3/uL (4.8-10.8)
[2019-11-18 06:46] LABS: PLATELET COUNT 234 10x3/uL (130-400)
[2019-11-18 06:53] LABS: CALC OSMOLALITY 260 mosm/kg (275-300); CALCIUM 7.9 mg/dL (8.5-10.1); CARBON DIOXIDE 31.4 mmol/L (21.0-32.0); CHLORIDE - SERUM 93 mmol/L (98-107); CREATININE - SERUM 0.9 mg/dL (0.6-1.3); GLUCOSE 107 mg/dL (74-106); POTASSIUM - SERUM 3.6 mmol/L (3.5-5.1); SODIUM 130 mmol/L (136-145); UREA NITROGEN 13 mg/dL (7-18); eGFR NON AFRICAN AMERICAN 85 mL/min (90-120)
[2019-11-18 12:48] VITALS: Ht 180.3 cm; Wt 88.5 kg
== END 2019-11-18 17:27 | disposition home health service (06) | DRG 560 ==
LOC: D.REHAB 15:50
PROVIDERS: ADMIT Emergency Medicine; ATTEND Emergency Medicine
DX: S72.001D Fracture of unspecified part of neck of right femur, subsequent encounter for closed fracture with routine healing (principal); F17.203 Nicotine dependence unspecified, with withdrawal; D62 Acute posthemorrhagic anemia; J98.11 Atelectasis; I10 Essential (primary) hypertension; I25.10 Atherosclerotic heart disease of native coronary artery without angina pectoris; I48.91 Unspecified atrial fibrillation; E78.5 Hyperlipidemia, unspecified; W01.0XXD Fall on same level from slipping, tripping and stumbling without subsequent striking against object, subsequent encounter

== ENCOUNTER 2019-11-28 08:22 | Inpatient (IN) | payer MEDICARE, OTHER ==
[~2019-11-28] VITALS: Ht 180.3 cm; Wt 90.5 kg
[2019-11-28] VITALS (10 sets, daily range): BP systolic 99–131; BP diastolic 57–78; Ht 180.3 cm; Wt 90.5 kg
[~2019-11-28 08:22] MED LIST changes: +HYDROCODON-ACE1 EAC7 PO
[2019-11-28 08:56] LABS: ANION GAP 9.8 mmol/L (8-16); CALCIUM 8.1 mg/dL (8.5-10.1); CARBON DIOXIDE 25.9 mmol/L (21.0-32.0); CREATININE - SERUM 1.1 mg/dL (0.6-1.3); POTASSIUM - SERUM 3.7 mmol/L (3.5-5.1)
[2019-11-28 09:36] LABS: BASOPHILS 0.6 % (0-2); EOSINOPHILS 1.5 % (0-7); HEMATOCRIT 30.7 % (42.0-54.0); IMMATURE GRANULOCYTES 1.9 % (0-5); LYMPHOCYTES 10.5 % (15-50); MCH 31.8 pg (26.0-34.0); MCHC 32.6 g/dL (31.0-37.0); MCV 97.8 fL (80.0-100.0); MEAN PLATELET VOLUME 8.9 fL (7.4-10.4); MONOCYTES 8.7 % (2-11); NEUTROPHILS 76.8 % (40-80); PLATELET COUNT 226 10x3/uL (130-400); RBC 3.14 10x6/uL (4.20-6.10); RDW 17.5 % (11.5-14.5); WBC 6.8 10x3/uL (4.8-10.8)
--- NOTE | 2019-11-28 19:33 | NUR ---
HELPED PATIENT BACK TO BED AT THIS TIME. IV INTACT. EMPTIED DRAIN. DRAIN COMPRESSED. WOUND VAC INTACT AND ON. BSCDS ON AND WORKING. NO COMPLAINTS. BA ON. CALL LIGHT WITHIN REACH.
--- NOTE | 2019-11-28 20:00 | NUR ---
ALERT RESTING IN BED DENIES PAIN OR NEEDS AT THIS TIME, SEE SHIFT ASSESSMENT, CALL LIGHT IN REACH
[2019-11-29] VITALS: BP 116/69
[2019-11-29 04:00] VITALS: BP 124/73
[2019-11-29 07:01] LABS: HEMATOCRIT 29.3 % (42.0-54.0); HEMOGLOBIN 9.3 g/dL (13.5-17.5); MCH 31.4 pg (26.0-34.0); MCHC 31.7 g/dL (31.0-37.0); MEAN PLATELET VOLUME 8.8 fL (7.4-10.4); RBC 2.96 10x6/uL (4.20-6.10)
--- NOTE | 2019-11-29 07:15 | NUR ---
REC'D IN BED WITH EYES CLOSED EASILY TO AROUSED WHEN NAME IS CALLED. RESP EVEN AND UNLABORED WITH NO DISTRESS NOTED. CAN EXPRESS NEEDS AND WANTS. ASSESSMENT COMPLETED. C/L IN REACH AT BEDSIDE.
[2019-11-29 08:32] VITALS: BP 139/71
--- NOTE | 2019-11-29 09:50 | NUR ---
I have reviewed this patient and I concur with the Shift Assessment completed by the Licensed Practical Nurse today this shift.
--- NOTE | 2019-11-29 10:34 | OP ---
PATIENT NAME: ADAM ROUSE MEDICAL RECORD: [id number] :[birth year] LOCATION:[id number] ADMISSION DATE:11/28/19 SURGEON: ANDREA VARGAS, DATE OF OPERATION: 11/28/2019 PROCEDURE PERFORMED: Right hip hematoma evacuation with irrigation and debridement. PREOPERATIVE DIAGNOSIS: Right hip hematoma and seroma formation. POSTOPERATIVE DIAGNOSIS: Right hip hematoma and seroma formation. INDICATIONS: Ms. Rouse is an 84-year-old male, who had a right obdulio hip performed a few weeks ago. He is on Brilinta and Eliquis for recent stents in his heart; however, we had to do the procedure due to a hip fracture and could not ambulate around and would not be good for his morbidity and mortality. Informed him of this risk when we did it. He was okay with it, did not anticipate it forming so large and so quickly and he came to my office 2 weeks after surgery, he had a smaller one and then yesterday and it was much, much larger and was quite painful. I informed him we need to wash that out before possibly got infected and he was okay with that and aware of the risks could still be infected, would need further surgery and continued pain, problems with the hip, further seroma formation, and he signed a consent. SURGEON: Andrea Vargas DO PROCEDURE IN DETAIL: The patient was taken to the operative suite, laid in supine position, given general anesthetic, given 2 grams of Ancef and 900 mg clindamycin preoperatively. He was sedated and LMA was placed and then later intubated. The right hip was then prepped and draped in sterile fashion. His was position on the [place] table. Prior to that, a timeout was performed; everyone was in agreement with the correct side, site, patient and procedure. I then made an incision along the old hip incision anteriorly on the hip and a large hematoma and seroma came out. This was then irrigated and 3 sets of cultures were taken. It went deep through the tensor fascia bruno fascia deep to the hip joint. There was no purulence whatsoever, but there was a large hematoma and seroma. After culturing then irrigated with Bactisure; I first irrigated with 3 liters normal saline and then Bactisure and then another liter of normal saline. I then put another 500 mL of 10% povidone iodine with saline and let it sit for 3 minutes and irrigated that out with another liter of normal saline. Then, vancomycin-tobramycin powder and Ethan powder and then put a drain in and bring it out proximally through the deep layer and then closed the tensor fascia bruno with #1 pop-offs in itgedi-hl-dbzre fashion. Jax Parrish, certified procedural coder then closed the skin with 2-0 Vicryl in inverted interrupted fashion, 4-0 Monocryl ran on the skin and put a Prevena Plus VAC on. We then secured the drain in place with 2 Tegaderms. He was then awakened and taken to recovery in stable condition. Blood loss was approximately 200 mL. COMPLICATIONS: None. TRANSINT:[id number] Voice Confirmation ID: [id number] DOCUMENT ID: [id number] OPERATIVE REPORT [id number] ADAM ROUSE MICHAEL D, DO at 1034 CC: [id number] DICTATION DATE: 11/28/19 1158 MACHINE ADJUSTER LEADER: 11/28/191950 ADM IN [facility] [address] [place] [address]
[2019-11-29 11:47] VITALS: BP 127/77
--- NOTE | 2019-11-29 14:09 | NUR ---
SPOKE WITH DR. BLANCAS AND HE STATED YES HE WANTED TO THE PT TO HAVE TO LOVENOX PER ORDERS. THIS NURSE SPOKE WITH PT AND PT AGREED TO POC. C/L IN REACH AT BEDSIDE.
[2019-11-29 15:48] VITALS: BP 128/70
[2019-11-29 20:00] VITALS: BP 124/76
--- NOTE | 2019-11-29 22:12 | NUR ---
SITTING UP ON SIDE OF BED. ALERT WITH SOME CONFUSION NOTED. IV TO LFA INTAC WITHOUT REDNESS OR EDEMA NOTED. WOUND VAC INTACT TO RIGHT HIP INCISION. EDEMA NOTED TO RLE. DENIES DISCOMFORT AT PRSENT. CL IN REACH
[2019-11-30 04:00] VITALS: BP 138/72
--- NOTE | 2019-11-30 04:45 | NUR ---
I have reviewed this patient and I concur with the Shift Assessment completed by the Licensed Practical Nurse today this shift.
[2019-11-30 05:41] LABS: BASOPHILS 0.5 % (0-2); EOSINOPHILS 2.5 % (0-7); HEMATOCRIT 26.6 % (42.0-54.0); HEMOGLOBIN 8.6 g/dL (13.5-17.5); IMMATURE GRANULOCYTES 1.8 % (0-5); LYMPHOCYTES 13.2 % (15-50); MCH 31.5 pg (26.0-34.0); MCHC 32.3 g/dL (31.0-37.0); MCV 97.4 fL (80.0-100.0); MEAN PLATELET VOLUME 8.7 fL (7.4-10.4); MONOCYTES 10.3 % (2-11); NEUTROPHILS 71.7 % (40-80); PLATELET COUNT 178 10x3/uL (130-400); RBC 2.73 10x6/uL (4.20-6.10); RDW 17.9 % (11.5-14.5); WBC 5.6 10x3/uL (4.8-10.8)
[2019-11-30 05:59] LABS: ALBUMIN 2.5 g/dL (3.4-5.0); ALKALINE PHOSPHATASE 143 U/L (30-120); ALT (SGPT) 21 U/L (10-68); CALC OSMOLALITY 269 mosm/kg (275-300); CALCIUM 7.7 mg/dL (8.5-10.1); CHLORIDE - SERUM 102 mmol/L (98-107); CREATININE - SERUM 0.9 mg/dL (0.6-1.3); GLUCOSE 107 mg/dL (74-106); MAGNESIUM - SERUM 1.8 mg/dL (1.8-2.4); POTASSIUM - SERUM 3.3 mmol/L (3.5-5.1); PROTEIN - SERUM 5.1 g/dL (6.4-8.2); SODIUM 135 mmol/L (136-145); UREA NITROGEN 13 mg/dL (7-18); eGFR NON AFRICAN AMERICAN 85 mL/min (90-120)
[2019-11-30 07:38] VITALS: BP 136/80
--- NOTE | 2019-11-30 10:19 | NUR ---
PT ALERT X 4. BREATH SOUND CLEAR BILAT. IV TO LEFT FOREARM, PATENT, DRESSING CDI. HEMATOMA TO RLQ. WOUND VAC TO RIGHT HIP, DRESSING REINFORCED. PT REPORTING PAIN OF 8/10, MEDICATED PER ORDERS, WILL CONTINUE TO MONITOR. PT SITTING UP IN CHAIR. BED LOW, CALL LIGHT IN REACH. NO OTHER NEEDS AT THIS TIME.
[2019-11-30 13:03] VITALS: BP 115/58
[2019-11-30 17:32] VITALS: BP 129/74
[2019-11-30 20:00] VITALS: BP 133/72
[2019-12-01] VITALS: BP 128/68
[2019-12-01 04:00] VITALS: BP 135/75
--- NOTE | 2019-12-01 06:07 | NUR ---
I have reviewed this patient and I concur with the Shift Assessment completed by the Licensed Practical Nurse today this shift.
[2019-12-01 06:59] LABS: BASOPHILS 0.7 % (0-2); EOSINOPHILS 2.6 % (0-7); HEMATOCRIT 28.3 % (42.0-54.0); IMMATURE GRANULOCYTES 2.3 % (0-5); LYMPHOCYTES 13.9 % (15-50); MCH 31.1 pg (26.0-34.0); MCHC 31.8 g/dL (31.0-37.0); MCV 97.9 fL (80.0-100.0); MEAN PLATELET VOLUME 8.7 fL (7.4-10.4); MONOCYTES 8.7 % (2-11); NEUTROPHILS 71.8 % (40-80); PLATELET COUNT 174 10x3/uL (130-400); RBC 2.89 10x6/uL (4.20-6.10); RDW 17.8 % (11.5-14.5); WBC 5.7 10x3/uL (4.8-10.8)
[2019-12-01 07:48] VITALS: BP 148/79
[2019-12-01 07:55] LABS: CALC OSMOLALITY 268 mosm/kg (275-300); CALCIUM 7.8 mg/dL (8.5-10.1); CHLORIDE - SERUM 100 mmol/L (98-107); CREATININE - SERUM 0.9 mg/dL (0.6-1.3); GLUCOSE 94 mg/dL (74-106); MAGNESIUM - SERUM 1.9 mg/dL (1.8-2.4); POTASSIUM - SERUM 3.7 mmol/L (3.5-5.1); SODIUM 135 mmol/L (136-145); UREA NITROGEN 11 mg/dL (7-18); eGFR NON AFRICAN AMERICAN 85 mL/min (90-120)
[2019-12-01 08:25] LABS: ALBUMIN 2.7 g/dL (3.4-5.0); BILIRUBIN - DIRECT 0.35 mg/dL (0.00-0.30); BILIRUBIN - INDIRECT 0.64 mg/dL (0.00-1.00); BILIRUBIN - TOTAL 0.99 mg/dL (0.2-1.3); PROTEIN - SERUM 5.4 g/dL (6.4-8.2)
[2019-12-01] MEDS ORDERED: HYDROCODON-ACE1 EAC7 PO (08:41)
[2019-12-01] MEDS ORDERED: KEFLEX500 MG PO (08:41)
--- NOTE | 2019-12-01 08:50 | NUR ---
ASSESSMENT PER FLOW SHEET. PATIENT IS WITHOUT DISTRESS.FALL PREVENTION IN PLACE WITH KORIN. DOOR OPEN
--- NOTE | 2019-12-01 12:24 | NUR ---
Prevena dressing in place on right hip. POD 3 Wound care will monitor as needed.
--- NOTE | 2019-12-01 12:59 | NUR ---
PATIENT READY FOR DC HOME. PATIENT STATES HE NEEDS SPEACIAL CORDS AND STRIPS FOR WOUND VAC. INSTRUCTED PATIENT WOUND VAC CAN BE UN PLUGGED FOR SMALL PERIODS AND PLUGGED IN WHILE SITTING DOWN. PATIENT INSTRUCTED PUTTING POWER CORDS OR STRIPS THROUGHOUT HOUSE IS A SAFETY MONALISA.
--- NOTE | 2019-12-01 13:10 | MORECARE ---
CASE MANAGEMENT DISCHARGE SUMMARY PATIENT: ADAM ROUSE UNIT: [id number] ADM DATE: 11/28/19 AGE: 84 : 35 SEX: M ROOM/BED: D.2230 AUTHOR: RADHA SANTOS PHYSICIAN: REFERRING PHYSICIAN: NICKOLAS VARGAS DO DATE OF SERVICE: 12/01/19 Discharge Plan Patient Name: ADAM ROUSE [facility] [facility] 1935 Planned Disposition: Home with Home Health Anticipated Discharge Date: Discharge Date: Expected LOS: Initial Reviewer: [email or web address] Initial Review Date: 11/28/2019 Generated: 12/01/19 2:09 pm DCPIA - Discharge Planning Initial Assessment Updated by [id number]: Michelle Munoz on 12/01/19 1:07 pm * Is the patient Alert and Oriented? Yes * PCP RISA ROBERTSON * Pharm[facility] * Preadmission Environment Home Alone * ADLs Independent * Equipment Rolling Walker * List name and contact numbers for known caregivers / representatives who currently or will assist patient after discharge: URI LO [phone] * Verbal permission to speak to the caregivers and representatives has been obtained from the patient. N/A * Community resources currently utilized Home Health * Please name any agencies selected above. CURRENT WITH [facility] * Additional services required to return to the preadmission environment? Yes * Can the patient safely return to the preadmission environment? Yes * Has this patient been hospitalized within the prior 30 days at any hospital? Yes Patient Name: ADAM ROUSE Page 32526 at 1310 All edits/amendments must be made on the electronic document DICTATION DATE: 12/01/19 1309 HOME CHILD CARE PROVIDER: ADAM 12/01/19 1309 RPT#: [id number] DC DATE: STATUS: ADM IN [facility] [address] [place] [address] END OF REPORT
--- NOTE | 2019-12-01 13:18 | MORECARE ---
CASE MANAGEMENT DISCHARGE SUMMARY PATIENT: ADAM ROUSE UNIT: [id number] ADM DATE: 11/28/19 AGE: 84 : 35 SEX: M ROOM/BED: D.2230 AUTHOR: RADHA SANTOS PHYSICIAN: REFERRING PHYSICIAN: NICKOLAS VARGAS DO DATE OF SERVICE: 12/01/19 Discharge Plan Patient Name: ADAM ROUSE Facility: [facility]:[place] : 1935 Planned Disposition: Home with Home Health Anticipated Discharge Date: Discharge Date: Expected LOS: Initial Reviewer: [email or web address] Initial Review Date: 11/28/2019 Generated: 12/01/19 2:18 pm Comments DCP- Discharge Planning Updated by [id number]: Michelle Munoz on 12/01/19 12:[address] Patient Name: ADAM ROUSE Admission Status: Elective Accout number: [id number] Admission Date: 11-28-2019 : 1935 Admission Diagnosis:POSTPROC HEMATOMA OF SKIN, SUBCU FOLLOWING OTHER PROCED Attending: NICKOLAS VARGAS Current LOS: 3 Anticipated DC Date: Planned Disposition: Home with Home Health Primary Insurance: MEDICARE A & B Discharge Planning Comments: CM met with patient to complete initial dc planning assessment. CM educated patient on the CM role and verbal consent given by patient to complete assessment. Patient lives at home alone where he is independent with his care. At discharge patient plans to return home and feels this is a safe discharge. He will be taking a taxi home & he will cover the cost. CM discussed availability of home health, rehab services, and medical equipment. He has a walker. He said he is current with home PT. I looked back at his other chart and he was set up with [facility]. He will have nursing HH along with PT now. I have contacted Anastasiia to let her know. I will fax clinicals over to her. ELLIE signed and IMM served and explained. Patient denied known discharge needs at this time. CM will continue to follow and will assist as needed with dc plans/needs. Pilot Plant Operator: Michelle Munoz DCPIA - Discharge Planning Initial Assessment Updated by [email or web address]: Michelle Munoz on 12/01/19 1:07 pm * Is the patient Alert and Oriented? Yes * PCP RISA ROBERTSON * [facility] * Preadmission Environment Home Alone * ADLs Independent * Equipment Rolling Walker * List name and contact numbers for known caregivers / representatives who currently or will assist patient after discharge: URI LO [phone] * Verbal permission to speak to the caregivers and representatives has been obtained from the patient. N/A * Community resources currently utilized Home Health * Please name any agencies selected above. CURRENT WITH [facility] * Additional services required to return to the preadmission environment? Yes * Can the patient safely return to the preadmission environment? Yes * Has this patient been hospitalized within the prior 30 days at any hospital? Yes Last DP export: 12/01/19 12:10 pm Patient Name: ADAM ROUSE Page [phone] at 1318 All edits/amendments must be made on the electronic document DICTATION DATE: 12/01/19 1318 WORKFORCE ADVISOR: ADAM 12/01/19 1318 RPT#: [id number] DC DATE: STATUS: ADM IN [facility] [address] [place] [address] END OF REPORT
--- NOTE | 2019-12-01 13:39 | MORECARE ---
CASE MANAGEMENT DISCHARGE SUMMARY PATIENT: ADAM ROUSE UNIT: [id number] ADM DATE: 11/28/19 AGE: 84 : 35 SEX: M ROOM/BED: D.2230 AUTHOR: RADHA SANTOS PHYSICIAN: REFERRING PHYSICIAN: NICKOLAS VARGAS DO DATE OF SERVICE: 12/01/19 Discharge Plan Patient Name: ADAM ROUSE Facility: [facility]:[place] : 1935 Planned Disposition: Home with Home Health Anticipated Discharge Date: Discharge Date: Expected LOS: Initial Reviewer: [email or web address] Initial Review Date: 11/28/2019 Generated: 12/01/19 2:39 pm Comments DCP- Discharge Planning Updated by [email or web address]: Michelle Munoz on 12/01/19 12:[address] Patient Name: ADAM ROUSE Admission Status: Elective Accout number: [id number] Admission Date: 11-28-2019 : 1935 Admission Diagnosis:POSTPROC HEMATOMA OF SKIN, SUBCU FOLLOWING OTHER PROCED Attending: NICKOLAS VARGAS Current LOS: 3 Anticipated DC Date: Planned Disposition: Home with Home Health Primary Insurance: MEDICARE A & B Discharge Planning Comments: CM met with patient to complete initial dc planning assessment. CM educated patient on the CM role and verbal consent given by patient to complete assessment. Patient lives at home alone where he is independent with his care. At discharge patient plans to return home and feels this is a safe discharge. He will be taking a taxi home & he will cover the cost. CM discussed availability of home health, rehab services, and medical equipment. He has a walker. He said he is current with home PT. I looked back at his other chart and he was set up with [facility]. He will have nursing HH along with PT now. I have contacted Anastasiia to let her know. I will fax clinicals over to her. LCUHO signed and IMM served and explained. Patient denied known discharge needs at this time. CM will continue to follow and will assist as needed with dc plans/needs. Drama Director: Michelle Munoz DCPIA - Discharge Planning Initial Assessment Updated by [email or web address]: Michelle Munoz on 12/01/19 1:07 pm * Is the patient Alert and Oriented? Yes * PCP RISA ROBERTSON * [facility] * Preadmission Environment Home Alone * ADLs Independent * Equipment Rolling Walker * List name and contact numbers for known caregivers / representatives who currently or will assist patient after discharge: URI LO [phone] * Verbal permission to speak to the caregivers and representatives has been obtained from the patient. N/A * Community resources currently utilized Home Health * Please name any agencies selected above. CURRENT WITH [facility] * Additional services required to return to the preadmission environment? Yes * Can the patient safely return to the preadmission environment? Yes * Has this patient been hospitalized within the prior 30 days at any hospital? Yes External Providers External Provider: [facility] Next Contact Date: Service Request Date: Service Type: Resolution: Reviewer: Comments: Coverage Notice Reviewer: [id number] Brunilda Munoz Notice Issued Date-Time: 12/01/2019 13:00 Notice Type: IM Discharge Notice Notice Delivered To: Patient Relationship to Patient: Mail Room Name: Delivery Method: HAND - Hand Delivered Sonya Days: Prior Verbal Notification: Recipient Understood Notice: Yes Recipient Signature: Yes Med Rec Note Co-signed by Attending: Coverage Notice Comment: Reviewer: [id number] Brunilda Munoz Notice Issued Date-Time: 12/01/2019 13:00 Notice Type: Patient Choice Letter Notice Delivered To: Patient Relationship to Patient: Mail Room Name: Delivery Method: HAND - Hand Delivered Sonya Days: Prior Verbal Notification: Recipient Understood Notice: Yes Recipient Signature: Yes Med Rec Note Co-signed by Attending: Coverage Notice Comment: lucho streeter Last DP export: 12/01/19 12:18 pm Patient Name: ADAM ROUSE Page [id number] at 1339 All edits/amendments must be made on the electronic document DICTATION DATE: 12/01/19 133 SECURITY SERGEANT: ADAM 12/01/19 1339 RPT#: [id number] DC DATE: STATUS: ADM IN [facility] [address] [place] [address] END OF REPORT
--- NOTE | 2019-12-01 13:50 | NUR ---
DISCHARGE INSTRUCTIONS BY NEIDA CHAVEZ LPN, PATIENT STATES UNDERSTANDING. IV DCD WITH CATH TIP INTACT. WOUND VAC CHARGING FOR TRANSPORT HOME.
--- NOTE | 2019-12-01 14:28 | NUR ---
[facility]K CALLED PER PATIENTS REQUEST, [phone]. THERE WILL BE A T LEAST A 30 MIN WAIT
--- NOTE | 2019-12-01 15:00 | NUR ---
LEFT UNIT VIA WHEELCHAIR FOR TRANSPORT HOME
--- NOTE | 2019-12-02 09:22 | MORECARE ---
CASE MANAGEMENT DISCHARGE SUMMARY PATIENT: ADAM ROUSE UNIT: [id number] ADM DATE: 11/28/19 AGE: 84 : 35 SEX: M ROOM/BED: D.2230 AUTHOR: DANIELLE,DOC PHYSICIAN: REFERRING PHYSICIAN: NICKOLAS VARGAS DO DATE OF SERVICE: 12/02/19 Discharge Plan Patient Name: ADAM ROUSE Facility: [facility]:[place] : 1935 Planned Disposition: Home with Home Health Anticipated Discharge Date: Discharge Date: 12/01/2019 Expected LOS: Initial Reviewer: [id number] Initial Review Date: 11/28/2019 Generated: 12/02/19 10:22 am Comments DCP- Discharge Planning Updated by [email or web address]: Michelle Munoz on 12/01/19 12:[address] Patient Name: ADAM ROUSE Admission Status: Elective Accout number: [id number] Admission Date: 11-28-2019 : 1935 Admission Diagnosis:POSTPROC HEMATOMA OF SKIN, SUBCU FOLLOWING OTHER PROCED Attending: NICKOLAS VARGAS Current LOS: 3 Anticipated DC Date: Planned Disposition: Home with Home Health Primary Insurance: MEDICARE A & B Discharge Planning Comments: CM met with patient to complete initial dc planning assessment. CM educated patient on the CM role and verbal consent given by patient to complete assessment. Patient lives at home alone where he is independent with his care. At discharge patient plans to return home and feels this is a safe discharge. He will be taking a taxi home & he will cover the cost. CM discussed availability of home health, rehab services, and medical equipment. He has a walker. He said he is current with home PT. I looked back at his other chart and he was set up with [facility]. He will have nursing HH along with PT now. I have contacted Anastasiia to let her know. I will fax clinicals over to her. LUCHO signed and IMM served and explained. Patient denied known discharge needs at this time. CM will continue to follow and will assist as needed with dc plans/needs. Pulley Mortiser Operator: Michelle Munoz DCPIA - Discharge Planning Initial Assessment Updated by [email or web address]: Michelle Munoz on 12/01/19 1:07 pm * Is the patient Alert and Oriented? Yes * PCP RISA ROBERTSON * [facility] * Preadmission Environment Home Alone * ADLs Independent * Equipment Rolling Walker * List name and contact numbers for known caregivers / representatives who currently or will assist patient after discharge: URI LO [phone] * Verbal permission to speak to the caregivers and representatives has been obtained from the patient. N/A * Community resources currently utilized Home Health * Please name any agencies selected above. CURRENT WITH [facility] * Additional services required to return to the preadmission environment? Yes * Can the patient safely return to the preadmission environment? Yes * Has this patient been hospitalized within the prior 30 days at any hospital? Yes Coverage Notice Reviewer: [id number] Brunilda Munoz Notice Issued Date-Time: 12/01/2019 13:00 Notice Type: IM Discharge Notice Notice Delivered To: Patient Relationship to Patient: Call Center Consultant Name: Delivery Method: HAND - Hand Delivered Sonya Days: Prior Verbal Notification: Recipient Understood Notice: Yes Recipient Signature: Yes Med Rec Note Co-signed by Attending: Coverage Notice Comment: Reviewer: [id number] Munoz Notice Issued Date-Time: 12/01/2019 13:00 Notice Type: Patient Choice Letter Notice Delivered To: Patient Relationship to Patient: Call Center Consultant Name: Delivery Method: HAND - Hand Delivered Sonya Days: Prior Verbal Notification: Recipient Understood Notice: Yes Recipient Signature: Yes Med Rec Note Co-signed by Attending: Coverage Notice Comment: lucho Spann DP export: 12/01/19 12:39 pm Patient Name: ADAM ROUSE Page [phone] at 0922 All edits/amendments must be made on the electronic document DICTATION DATE: 12/02/19921 [employer]GRAMMING INTER[employer]IP: DM 12/02/19921 RPT#: [id number] DC DATE:12/01/19 STATUS: DIS IN [facility] [address] [place] [address] END OF REPORT
--- NOTE | 2019-12-02 10:34 | MORECARE ---
CASE MANAGEMENT DISCHARGE SUMMARY PATIENT: ADAM ROUSE UNIT: [id number] ADM DATE: 11/28/19 AGE: 84 : 35 SEX: M ROOM/BED: D.2230 AUTHOR: DANIELLE,RADHA PHYSICIAN: REFERRING PHYSICIAN: NICKOLAS VARGAS DO DATE OF SERVICE: 12/02/19 Discharge Plan Patient Name: ADAM ROUSE Facility: [facility]:[place] : 1935 Planned Disposition: Home with Home Health Anticipated Discharge Date: Discharge Date: 12/01/2019 Expected LOS: Initial Reviewer: [email or web address] Initial Review Date: 11/28/2019 Generated: 12/02/19 11:33 am DCP- Discharge Planning Updated by [email or web address]: Michelle Munoz on 12/01/19 12:[address] Patient Name: ADMA ROUSE Admission Status: Elective Accout number: [id number] Admission Date: 11-28-2019 : 1935 Admission Diagnosis:POSTPROC HEMATOMA OF SKIN, SUBCU FOLLOWING OTHER PROCED Attending: NICKOLAS VARGAS Current LOS: 3 Anticipated DC Date: Planned Disposition: Home with Home Health Primary Insurance: MEDICARE A & B Discharge Planning Comments: CM met with patient to complete initial dc planning assessment. CM educated patient on the CM role and verbal consent given by patient to complete assessment. Patient lives at home alone where he is independent with his care. At discharge patient plans to return home and feels this is a safe discharge. He will be taking a taxi home & he will cover the cost. CM discussed availability of home health, rehab services, and medical equipment. He has a walker. He said he is current with home PT. I looked back at his other chart and he was set up with [facility]. He will have nursing HH along with PT now. I have contacted Anastasiia to let her know. I will fax clinicals over to her. LUCHO signed and IMM served and explained. Patient denied known discharge needs at this time. CM will continue to follow and will assist as needed with dc plans/needs. Combatant Diver Qualified: Michelle Munoz DCPIA - Discharge Planning Initial Assessment Updated by [id number]: Michelle Munoz on 12/01/19 1:07 pm * Is the patient Alert and Oriented? Yes * PCP RISA ROBERTSON * [facility] * Preadmission Environment Home Alone * ADLs Independent * Equipment Rolling Walker * List name and contact numbers for known caregivers / representatives who currently or will assist patient after discharge: URI LO [phone] * Verbal permission to speak to the caregivers and representatives has been obtained from the patient. N/A * Community resources currently utilized Home Health * Please name any agencies selected above. CURRENT WITH [facility] * Additional services required to return to the preadmission environment? Yes * Can the patient safely return to the preadmission environment? Yes * Has this patient been hospitalized within the prior 30 days at any hospital? Yes External Providers External Provider: [facility] Next Contact Date: Service Request Date: Service Type: Resolution: Reviewer: Comments: Coverage Notice Reviewer: [id number] Brunilda Munoz Notice Issued Date-Time: 12/01/2019 13:00 Notice Type: IM Discharge Notice Notice Delivered To: Patient Relationship to Patient: Board Layer Name: Delivery Method: HAND - Hand Delivered Sonya Days: Prior Verbal Notification: Recipient Understood Notice: Yes Recipient Signature: Yes Med Rec Note Co-signed by Attending: Coverage Notice Comment: Reviewer: [id number] Brunilda Munoz Notice Issued Date-Time: 12/01/2019 13:00 Notice Type: Patient Choice Letter Notice Delivered To: Patient Relationship to Patient: Board Layer Name: Delivery Method: HAND - Hand Delivered Sonya Days: Prior Verbal Notification: Recipient Understood Notice: Yes Recipient Signature: Yes Med Rec Note Co-signed by Attending: Coverage Notice Comment: lucho Spann DP export: 12/02/19 8:22 am Patient Name: ADAM ROUSE Page [phone] at 1034 All edits/amendments must be made on the electronic document DICTATION DATE: 12/02/19 1033 HEALTH TECHNICIAN HEARING: ADAM 12/02/19 1033 RPT#: [id number] DC DATE:12/01/19 STATUS: DIS IN [facility] [address] [place] [address] END OF REPORT
== END 2019-12-01 15:01 | disposition home health service (06) | DRG 908 ==
LOC: D.OPS 08:22 → D.M3 11:52 → D.MS 11:52 → D.OPS 13:30 → D.MS 17:14
PROVIDERS: Anesthesiology; Family Medicine Adult Medicine; ADMIT Orthopaedic Surgery; ATTEND Orthopaedic Surgery
PROC: 0J9L0ZZ Drainage of Right Upper Leg Subcutaneous Tissue and Fascia, Open Approach (ICD-10-PCS; principal; 2019-11-28 10:45)
DX: L76.32 Postprocedural hematoma of skin and subcutaneous tissue following other procedure (principal); E87.1 Hypo-osmolality and hyponatremia; I10 Essential (primary) hypertension; I48.91 Unspecified atrial fibrillation; D64.9 Anemia, unspecified; E87.6 Hypokalemia; I25.10 Atherosclerotic heart disease of native coronary artery without angina pectoris

== ENCOUNTER → 2019-12-08 15:23 | Outpatient (CLI) | payer MEDICARE, OTHER ==
[2019-11-28 15:51] VITALS: BMI 27.8
== END | disposition home or self-care (01) ==
LOC: D.US 15:23
PROVIDERS: ATTEND Orthopaedic Surgery
DX: R22.41 Localized swelling, mass and lump, right lower limb (principal)

== ENCOUNTER → 2020-02-11 11:08 | Outpatient (CLI) | payer MEDICARE, OTHER ==
[2019-11-28 15:51] VITALS: BMI 27.8
== END | disposition home or self-care (01) ==
LOC: D.HCCARDIO 11:08
PROVIDERS: ATTEND Internal Medicine Cardiovascular Disease
DX: I25.10 Atherosclerotic heart disease of native coronary artery without angina pectoris (principal)

== ENCOUNTER 2020-02-19 11:41 | Outpatient (CLI) | payer MEDICARE, OTHER ==
[~2020-02-19] VITALS: Ht 180.3 cm; Wt 80.0 kg
--- NOTE | ~2020-02-19 | HEMODYNAMI ---
PATIENT:ADAM ROUSE MEDICAL RECORD: [id number] : 35 LOCATION:D.CAT ADMISSION DATE: 02/19/20 Generatedon:02/19/202014:26 Patient name: ADAM ROUSE Patient #: [id number] : 1935 Date of study: 02/19/2020 Page: Of Hemodynamic Procedure Report Patient Data Patient Demographics Procedure consent was obtained First Name: ADAM Gender: Male Last Name: PADMA : 1935 Middle Initial: L Age: 84 year(s) Patient #: [id number] Race: SSN: [id number] Additional ID: [id number] Contact details Address: [address] [place] [address] [id number] State: [place] City: [facility] Zip code: [address] Past Medical History Allergies Allergen Reaction Date Comments Reported Other allergy 10/23/2019 NKDA Admission Admission Data Admission Date: 02/19/2020 Admission Time: 11:41 Arrival Date: 02/19/2020 Arrival Time: 13:00 Admit Source: Other Insurance Payor: Medicare [facility] #: [id number] Height (in.): 71 BSA: 1.97 (m2) Height (cm.): 180.34 BMI: 23.85 (kg/m2) Weight (lbs.): 171 Weight (kg.): 77.56 Lab Results Lab Result Date: 02/19/2020 Lab Result Time: 0:00 Biochemistry Name Units Result Min Max BUN mg/dl 23 --(----)-* 7 18 Creatinine mg/dl 1.1 --(--*-)-- 0.6 1.3 eGFR ml/min 67.91258 *-(----)-- 90 120 NONAFRICAN CBC Name Units Result Min Max Hemoglobin g/dl 12.2 *-(----)-- 13.5 17.5 Procedure Procedure Types Cath Procedure Diagnostic Procedure LHC LHC w/Coronaries Procedure Description Procedure Date Procedure Date: 02/19/2020 Procedure Start Time: 14:11 Procedure End Time: 14:20 Procedure Staff Name Function Nakul Hodgson MD Performing Physician Inna Black RT Monitor Ana Gan RT Scrub Pasha Briones RN Nurse Procedure Data Cath Procedure Fluoroscopy Diagnostic fluoroscopy Total fluoroscopy Time: 1.2 time: 1.2 min min Diagnostic fluoroscopy Total fluoroscopy dose: 355 dose: 355 mGy mGy Contrast Material Contrast Material Type Amount (ml) Isovue 300 56 Entry Location Entry Primary Successful Side Size Upsize Upsize Entry Closure Succes sful Closure Location (Fr) 1 (Fr) 2 (Fr) Remarks Device Remarks Femoral Right 5 Fr Exoseal artery Estimated blood loss: 5 ml Diagnostic catheters Device Type Used For End Catheter Placement MULTIPACK JL 4.0 5Fr Left Coronary catheter Angiography MULTIPACK 3DRC 5Fr Right Coronary catheter Angiography MULTIPACK Pigtail 5 Fr Abdominal catheter aortogram Procedure Complications No complications Procedure Medications Medication Administration Route Dosage 0.9% NaCl I.V. 100 ml/hr Oxygen etCO2 Nasal cannula 2 l/min Heparin Flush Bag added to field 2 bags (1000units/500ml NS) Lidocaine 2% added to field 20 Versed I.V. 1 mg Fentanyl I.V. 50 mcg Hemodynamics Rest BSA: 1.97 (m2) HGB: 12.2 (g/dl) O2 Consumption: Estimated: 229.56 (ml/min) O2 Co nsumption indexed: Estimated:116.53 (ml/min/m) Heart Rate: 78 (bpm) Pressure Samples Time Site Value (mmHg) Purpose Heart Use Rate(bpm) 14:17 LV 132/8,12 Snapshot 76 14:18 AO 123/71(93) Pullback 75 Gradients Valve Time Site Site 2 Mean SEP/DFP Peak To Heart Use 1 (mmHg) (sec/min) Peak Rate (mmHg) (bpm) Aortic 14:18 LV AO 33 53 75 123/71(93) Calculations Valve P-P Mean Valve Index Valve Source Name Gradient Area Flow (cm2) Aortic 33 33 Snapshots Pre Cath Intra NCS Post Cath Vital Signs Time Heart Resp SPO2 etCO2 NIBP (mmHg) Rhythm Pain Sedation Rate (ipm) (%) (mmHg) Status Level (bpm) 14:02:32 77 11 99 0 139/84(120) A-Fib 0 (11) 10(A) , No pain 14:06:43 81 11 96 0 138/86(102) A-Fib 0 (11) 10(A) , No pain 14:10:52 70 11 96 35.3 137/84(99) A-Fib 0 (11) 10(A) , No pain 14:14:57 74 18 98 18.7 120/79(98) A-Fib 0 (11) 10(A) , No pain 14:18:57 76 11 96 9 137/82(120) A-Fib 0 (11) 9(A) , No pain Medications Time Medication Route Dose Verified Delivered Reason Notes Eff ectiveness by by 14:00:41 0.9% NaCl I.V. 100 Pasha Pasha Per ml/hr Anselmo Briones physician RN RN 14:00:50 Oxygen etCO2 2 Pasha Pasha for low 02 Nasal l/min Lorigan Lorigan sats cannula RN RN 14:01:00 Heparin Flush added 2 Pasha Pasha used for Bag to bags Lormarcela Briones procedure (1000units/500ml field RN RN NS) 14:01:25 Lidocaine 2% added 20ml Pasha Pasha for local to vial Lorigan Lorigan anesthetic field RN RN 14:13:40 Versed I.V. 1 mg Pasha Pasha for Lorigan Lorigan sedation RN RN 14:13:55 Fentanyl I.V. 50 Pasha Pasha for mcg Lorigan Lorigan sedation RN briquette machine operator helper Log Time Note 13:45:53 Informed consent obtained and on chart 13:47:44 Arrival Date: 02/19/2020 1:00:00 PM 13:48:16 Admit Source: Other 13:48:23 Insurance Payor : Medicare 13:48:34 Patient Weight : 171 lbs 13:48:46 Patient Height : 71 inches 13:48:51 Diagnostic Cath Status : Elective 13:49:29 Procedure Status Elective Heart Cath (OP). 13:49:33 Pasha Briones RN sent for patient. Start room use. 13:49:34 Time tracking: Regular hours (M-F 7:00 - 5:00) 13:49:37 Plan of Care:Hemodynamics will remain stable., Cardiac rhythm will remain stable., Comfort level will be maintained., Respiratory function will remain adequate., Patient/ family verbilizes understanding of procedure., Procedure tolerated without complication., Recovers from procedure without complications.. 13:49:43 Patient received from Pre/Post Procedure Room to CCL 2 Alert and oriented. Tansferred to table in Supine position. 13:49:44 Warm blankets applied, and otrin hugger turned on for patient comfort. 13:49:45 Correct patient and procedure confirmed by team. 13:49:45 ECG and BP/O2 sat monitors applied to patient. 14:00:41 0.9% NaCl 100 ml/hr I.V. was administered by Pasha Briones RN; Per physician; Verbal order read back and verified. 14:00:50 Oxygen 2 l/min etCO2 Nasal cannula was administered by Pasha Briones RN; for low 02 sats; Verbal order read back and verified. 14:01:00 Heparin Flush Bag (1000units/500ml NS) 2 bags added to field was administered by Pasha Briones RN; used for procedure; Verbal order read back and verified. 14:01:25 Lidocaine 2% 20ml vial added to field was administered by Pasha Briones RN; for local anesthetic; Verbal order read back and verified. 14:01:26 Vital chart was started 14:01:33 Baseline sample Acquired. 14:01:40 Rhythm: atrial fibrillation 14:01:42 Full Disclosure recording started 14:01:45 H&P Date Dictated: 02/19/2020 Within 30 days and on chart.. 14:01:46 Pre-procedure instructions explained to patient. 14:01:47 Pre-op teaching completed and patient verbalized understanding. 14:01:52 Family unavailable. 14:01:58 Patient NPO since Midnight. 14:02:15 Is the patient allergic to Iodine/contrast media? No. 14:02:17 Was the patient premedicated? N/A 14:02:23 Is patient on blood thinner?Yes 14:02:25 ACC The patient was administered the following blood thiners within the last 24 hours: ACCBrilinta 14:02:50 Patient diabetic? No. 14:03:09 ACC Patient presents with Stable Angina CCS Anginal Class 2--Slight limitation of ordinary activity. 14:03:15 If diabetic: On Metformin? N/A 14:03:24 Previous problem with sedation/anesthesia? No ? 14:03:26 Snore? Yes 14:03:32 Sleep apnea? No 14:03:33 Deviated septum? No 14:03:34 Opens mouth fully? Yes 14:03:36 Sticks out tongue? Yes 14:03:38 Airway obstruction? No ? 14:03:40 Dentures? No ? 14:03:54 Pre procedure: right dorsailis pedis pulse 2+ Normal; easily identifiable; not easily obliterated 14:03:57 Patient pain scale 0/10 ?. 14:04:09 IV patent on arrival in right antecubital with 0.9% NaCl at [facility]. 14:05:37 Lab Result : BUN 23 mg/dl 14:05:37 Lab Result : Creatinine 1.1 mg/dl 14:05:37 Lab Result : eGFR NONAFRICAN 67.51147 ml/min 14:05:37 Lab Result : Hemoglobin 12.2 g/dl 14:05:42 Lab results completed and on chart. 14:07:06 Risk of Mortality: 7.1 14:07:09 Risk of blood transfusion: 8.9 14:07:13 Risk of JAMIE: 15.3 14:07:28 Right groin area was prepped with chlora-prep and draped in sterile fashion 14:07:29 Alarms reviewed by R. N. 14:07:29 Sharps counted by scrub and verified by R.N. 14:08:07 2) 60-89 Mildly reduced kidney function, and other findings (as for stage 1) point to kidney disease. 14:08:37 Maximum allowable contrast dose (3.7 X eGFR X 0.75)188 ml. 14:08:55 Physician arrived 14:08:55 --------ALL STOP TIME OUT------ 14:08:56 Final Timeout: patient, procedure, and site verified with staff and physician. All members of the team are in agreement. 14:09:00 Right groin site verified by team. 14:09:03 Fire Safety Assessment: A--An alcohol-based skin anteseptic being used preoperatively., C--Open oxygen or nitrous oxide is being used., D--An ESU, laser, or fiber-optic light is being used. 14:09:05 Physical assessment completed. ASA score P 2 - A patient with mild systemic disease as per Nakul Hodgson MD. 14:09:10 Sedation plan: IV Moderate Sedation Medication:Versed, Fentanyl 14:11:30 Use device set Femoral Dx 14:11:31 ACIST Syringe (23798) opened to sterile field. 14:11:32 Bag Decanter (2002S) opened to sterile field. 14:11:32 Medline Cath Pack ([id number]) opened to sterile field. 14:11:33 ACIST Hand Control (88858) opened to sterile field. 14:11:34 ACIST Manifold (13912) opened to sterile field. 14:11:34 DIAGNOSTIC Multipack 5Fr catheter set (KF7846) opened to sterile field. 14:11:36 Tegaderm 4 x 4 (1626W) opened to sterile field. 14:11:37 SHEATH 5FR [place] (YSR439) opened to sterile field. 14:11:37 EMERALD Guide Wire (912-071) opened to sterile field. 14:11:43 Procedure started. 14:11:46 Local anesthetic to right femoral artery with Lidocaine 2% by Nakul Hodgson MD.INITIAL ACCESS ONLY 14:11:55 A 5 Fr sheath was inserted into the Right Femoral artery 14:13:25 A MULTIPACK JL 4.0 5Fr catheter was advanced over the wire and used for Left Coronary Angiography. 14:13:40 Versed 1 mg I.V. was administered by Pasha Briones RN; for sedation; Verbal order read back and verified. 14:13:55 Fentanyl 50 mcg I.V. was administered by Pasha Briones RN; for sedation; Verbal order read back and verified. 14:14:14 LCA angiography performed. 14:14:46 Injector settings: Ml/sec: 3, Volume: 6, 14:15:09 Catheter removed. 14:15:14 A MULTIPACK 3DRC 5Fr catheter was advanced over the wire and used for Right Coronary Angiography. 14:16:07 RCA angiography performed. 14:16:10 Injector settings: Ml/sec: 3, Volume: 6, 14:16:49 Catheter removed. 14:16:55 A MULTIPACK Pigtail 5 Fr catheter was advanced over the wire and used for Abdominal aortogram. 14:18:00 LV hemodynamics recorded. 14:18:01 LV gram done using MARES 14:18:03 Injector settings: Ml/sec: 5, Volume: 15, 14:18:11 EF : 30 % 14:18:16 Catheter removed. 14:18:32 EXOSEAL 5Fr (EX500) opened to sterile field. 14:18:47 Sheath removed intact; hemostasis achieved with Exoseal to the Right Femoral artery. 14:18:50 Procedure ended.(Physican Out) 14:18:57 Fluoroscopy time 01.20 minutes. 14:19:01 Flurop Dose total: 355 14:19:01 Fluoroscopy dose: 355 mGy 14:19:18 Dose Area Product 04481 mGy/cm. 14:19:21 Contrast amount:Isovue 300 56ml. 14:19:39 Maximum allowable dose exceeded? No. 14:19:39 Sharps counted by scrub and verified by R.N. 14:19:40 Insertion/operative site no bleeding no hematoma. 14:19:43 Post-op/insertion site Right Femoral artery dressed using a 4 x 4 and Tegaderm. 14:19:55 Post right femoral artery:stable 14:19:56 Post Procedure Pulses reassessed and unchanged 14:19:58 Post procedure rhythm: unchanged. 14:20:01 Estimated blood loss: 5 ml 14:20:02 Post procedure instruction explained to patient.Patient verbalizes understanding. 14:20:02 Patient needs reinforcement of post procedure teaching. 14:20:20 Procedure and supply charges have been captured, reviewed, submitted and are correct. 14:20:24 Procedure Complication : No complications 14:20:26 Vital chart was stopped 14:20:29 [facility] Findings: mild to moderate CAD (<70%) 14:20:31 Operative report dictated upon procedure completion. 14:20:31 See physician's report for complete and final results. 14:20:33 Report given to Pre/Post Procedure Room. 14:20:36 Patient transfered to Pre/Post Procedure Room with Stretcher. 14:20:37 Procedure ended. 14:20:37 Full Disclosure recording stopped 14:20:47 End room use (Document Last) Device Usage Item Name Manufacture Quantity Catalog Hospital Part Current Minimal L ot# / Number Charge Number Stock Stock Serial# Code ACIST Acist 1 17521 [id number] 971522 590007 20 Syringe Signal Vine (07242) Systems Inc Bag Microtek 1 418965 34725 513194 5 Decanter Signal Vine Inc. (2002S) Medline Medline 1 [id number] 208503 10614 501403 5 Cath Pack ([id number]) ACIST Hand Acist 1 39965 955418 677342 672086 5 Control Medical (42225) Systems Inc ACIST Acist 1 42283 841375 247766 863900 5 Manifold Medical (34143) Systems Inc DIAGNOSTIC Cardinal 1 ON3020 352516 57970 393192 30 Multipack Health 5Fr catheter set (BN2967) Tegaderm 4 3M 1 1626W 626010 978444 790162 5 x 4 (1626W) SHEATH 5FR Terumo 1 CIT073 037542 052670 667102 5 [place] (HJJ630) EMERALD Cardinal 1 761-168 148677 202512 940022 5 Guide Wire Health (011-746) MULTIPACK Cardinal 1 009948 5 JL 4.0 5Fr Health catheter MULTIPACK Cardinal 1 007135 5 3DRC 5Fr Health catheter MULTIPACK Cardinal 1 057586 5 Pigtail 5 Health Fr catheter EXOSEAL 5Fr Cardinal 1 EX500 984214 694946 164138 10 (EX500) Health Signature Audit [place] Stage Time Signature Unsigned Intra-Procedure 02/19/2020 Inna Black 2:21:39 PM RT(R) Intra-Procedure 02/19/2020 Pasha 2:22:00 PM Anselmo MAHMOOD Intra-Procedure 02/19/2020 Nakul Golden 2:26:52 PM Toni MORRIS Signatures Performing Physician : Signature : Nakul Hodgson MD Date : Time : Monitor : Inna Black RT Signature : Date : Time : Nurse : Pasha Briones Signature : RN Date : Time : [place] [address] [place] [address]
[2020-02-19] MEDS ORDERED: GABAPENTIN100 MG PO (13:00)
[2020-02-19 13:03] VITALS: BP 124/74; Ht 180.3 cm; Wt 80.0 kg
[2020-02-19 13:21] LABS: BASOPHILS 0.5 % (0-2); EOSINOPHILS 3.5 % (0-7); HEMATOCRIT 36.2 % (42.0-54.0); HEMOGLOBIN 12.2 g/dL (13.5-17.5); IMMATURE GRANULOCYTES 1.9 % (0-5); LYMPHOCYTES 20.3 % (15-50); MCH 33.1 pg (26.0-34.0); MCHC 33.7 g/dL (31.0-37.0); MCV 98.1 fL (80.0-100.0); MEAN PLATELET VOLUME 8.8 fL (7.4-10.4); MONOCYTES 7.8 % (2-11); PLATELET COUNT 168 10x3/uL (130-400); RBC 3.69 10x6/uL (4.20-6.10); RDW 16.8 % (11.5-14.5); WBC 6.3 10x3/uL (4.8-10.8)
[2020-02-19 13:58] LABS: ANION GAP 9.9 mmol/L (8-16); CALCIUM 8.6 mg/dL (8.5-10.1); CARBON DIOXIDE 28.3 mmol/L (21.0-32.0); CREATININE - SERUM 1.1 mg/dL (0.6-1.3); LDL-HDL RATIO 1.7 ratio (1.5-3.5); POTASSIUM - SERUM 3.2 mmol/L (3.5-5.1)
--- NOTE | 2020-02-19 14:35 | NUR ---
PT REC'D TO ROOM 9 VIA STRETCHER FROM PARA EDUCATOR. MONITORS ESTAB. SEE FOOD SERVICE ORDER CLERK, ALARMS ON AND C/L IN REACH.
--- NOTE | 2020-02-19 14:50 | NUR ---
R GROIN SITE SOFT, NO S/S BLEEDING OR SWELLING. PULSES PALP. PT RESTING QUIETLY, VSS. C/L IN REACH.
--- NOTE | 2020-02-19 15:20 | NUR ---
R GROIN SITE SOFT, NO S/S BLEEDING OR SWELLING. R LEG/FOOT WARM WITH PALP PULSES AND BRISK CAP REFILL. VSS. ALARMS ON AND C/L IN REACH.
--- NOTE | 2020-02-19 15:30 | NUR ---
R GROIN SITE SOFT, C/D/I, NO S/S BLEEDING OR SWELLING. PT PULLED UP IN BED, AND HOB ELEVATED. PT GIVEN URINAL PER REQUEST. C/L IN REACH.
--- NOTE | 2020-02-19 15:34 | NUR ---
SPOKE WITH GLADYS YANEZ: PT DISCHARGE AT 1630.
--- NOTE | 2020-02-19 15:51 | NUR ---
PT VOIDED 375ML CLEAR, YELLOW URINE IN URINAL. HAND HYGIENE DONE. SANDWICH TRAY AND COLA PROVIDED. C/L IN REACH.
--- NOTE | 2020-02-19 16:00 | NUR ---
PT ATE ALL OF SANDWICH, NO NAUSEA. VSS. R GROIN SITE SOFT, C/D/I. PT RESTING QUIETLY, C/L IN REACH.
--- NOTE | 2020-02-19 16:20 | NUR ---
R GROIN SITE SOFT, C/D/I. PIV D/C'D INTACT, DSG APPLIED. PT ALLOWED UP TO GET DRESSED.
--- NOTE | 2020-02-19 16:26 | NUR ---
ALL DISCHARGE INSTRUCTIONS REVIEWED WITH PT, INCLUDING MEDS, RESTRICTIONS AND F/U APPT. PT VERBALIZES UNDERSTANGING.
--- NOTE | 2020-02-19 16:35 | NUR ---
PT D/C'D VIA WC TO PRIVATE VEHICLE WITH ALL PAPERWORK AND BELONGINGS.
--- NOTE | 2020-02-23 07:56 | OP ---
PATIENT NAME: ADAM ROUSE MEDICAL RECORD: [id number] :35 LOCATION:D.CAT ADMISSION DATE: SURGEON: SABINE ARREAGA MD DATE OF OPERATION: 02/19/2020 PROCEDURE: Left heart catheterization, selective coronary angiography, right femoral artery approach. CATHETERS: A5-Grenadian sheath, 5/4 left and right Gosia, 5/4 pig.. The procedure was well tolerated. The patient returned to the polanco. Sheath removed. ExoSeal device placed. FINDINGS: Left ventriculography in 30-degree MARES view shows global hypokinesis with reduced EF, estimated EF 30% to 35%. CORONARY ANATOMY: LEFT MAIN: Free of disease. LAD: An area of previous stenting is widely patent, no evidence of restenosis, no progression of [place] disease. CIRCUMFLEX: Luminal irregularities. RIGHT CORONARY ARTERY: Dominant artery, gives rise to PDA, area of previous stenting is widely patent, no evidence of restenosis. NTS:[id number] Voice Confirmation ID: [id number] DOCUMENT ID: [id number] SABINE ARREAGA MD at 0756 CC: [id number] DICTATION DATE: 02/19/20 1437 LOSS PREVENTION RESEARCH ENGINEER: 02/19/20 1854 DEP CLI 02/19/20 [facility] [address] [place] [address]
== END 2020-02-19 16:35 | disposition home or self-care (01) ==
LOC: D.CATH 11:41
PROVIDERS: ATTEND Internal Medicine Interventional Cardiology
DX: I25.10 Atherosclerotic heart disease of native coronary artery without angina pectoris (principal); I10 Essential (primary) hypertension; Z72.0 Tobacco use; R06.00 Dyspnea, unspecified; I48.91 Unspecified atrial fibrillation; I25.5 Ischemic cardiomyopathy

== ENCOUNTER 2020-04-22 22:23 | Emergency (ER) | payer MEDICARE, OTHER ==
[~2020-04-22] VITALS: Ht 180.3 cm; Wt 77.3 kg
[~2020-04-22 22:23] MED LIST changes: +GABAPENTIN100 MG PO
[2020-04-22 22:37] VITALS: Ht 180.3 cm; Wt 77.3 kg
[2020-04-22] MEDS ORDERED: RESTORIL7.5 MG (22:42)
[2020-04-22] MEDS ORDERED: TEMAZEPAM30 MG PO (22:42)
[2020-04-22 23:23] LABS: HEMATOCRIT 31.6 % (42.0-54.0); HEMOGLOBIN 10.8 g/dL (13.5-17.5); MCH 33.9 pg (26.0-34.0); MCHC 34.2 g/dL (31.0-37.0); MCV 99.1 fL (80.0-100.0); MEAN PLATELET VOLUME 8.8 fL (7.4-10.4); PLATELET COUNT 149 10x3/uL (130-400); RBC 3.19 10x6/uL (4.20-6.10); RDW 16.7 % (11.5-14.5); WBC 7.2 10x3/uL (4.8-10.8)
[2020-04-22 23:26] LABS: ANION GAP 9.4 mmol/L (8-16); CALCIUM 8.3 mg/dL (8.5-10.1); CREATININE - SERUM 1.3 mg/dL (0.6-1.3); POTASSIUM - SERUM 3.4 mmol/L (3.5-5.1)
[2020-04-22 23:29] LABS: APTT 29.9 SECONDS (22.8-39.4); INR 1.12 (0.85-1.17); PROTIME 14.3 SECONDS (11.6-15.0)
[2020-04-22 23:30] LABS: D-DIMER-QUANTITATIVE 1.02 ug/mLFEU (0.20-0.54)
[2020-04-22 23:33] LABS: ALBUMIN 3.2 g/dL (3.4-5.0); BILIRUBIN - TOTAL 0.33 mg/dL (0.2-1.3)
[2020-04-23 01:33] VITALS: BP 120/53
== END 2020-04-23 00:27 | disposition home or self-care (01) ==
LOC: D.ER 22:23
PROVIDERS: Emergency Medicine
DX: M71.21 Synovial cyst of popliteal space [Baker], right knee (principal); G62.9 Polyneuropathy, unspecified; I10 Essential (primary) hypertension; Z95.0 Presence of cardiac pacemaker; Z72.0 Tobacco use

== ENCOUNTER → 2020-10-06 08:39 | Outpatient (CLI) | payer MEDICARE, OTHER ==
[2020-09-15 16:18] VITALS: BMI 28.6
[~2020-10-06 08:39] MED LIST changes: +CRESTOR10 MG PO; +K-DUR20 MEQ PO; +LASIX20 MG PO; +NICODERM CQ1 EAC3 TRANSDERM; +PROTONIX40 MG PO; +RESTORIL7.5 MG; +TEMAZEPAM30 MG PO
== END | disposition home or self-care (01) ==
LOC: D.HCCARDIO 08:39
PROVIDERS: ATTEND Internal Medicine Cardiovascular Disease
DX: I20.9 Angina pectoris, unspecified (principal)

== ENCOUNTER 2020-10-11 07:19 | Day surgery (SDC) | payer MEDICARE, OTHER ==
[~2020-10-11] VITALS: Ht 180.3 cm; Wt 94.8 kg
--- NOTE | ~2020-10-11 | HEMODYNAMI ---
PATIENT:ADAM ROUSE MEDICAL RECORD: [id number] : 35 LOCATION:D.CAT ADMISSION DATE: 10/11/20 Generatedon::36 Patient name: ADAM ROUSE Patient #: [id number] : 1935 Date of study: 10/11/2020 Page: Of Hemodynamic Procedure Report Patient Data Patient Demographics Procedure consent was obtained First Name: ADAM Gender: Male Last Name: PADMA : 1935 Middle Initial: L Age: 85 year(s) Patient #: [id number] Race: SSN: [id number] Additional ID: [id number] Contact details Address: [address] [place] [address] [id number] State: [place] City: [facility] Zip code: [address] Past Medical History Performed procedures and imaging results Date Procedure Procedure Results Comments 10/06/2020 Stress testing Positive->Intermediate with SPECT MPI risk Allergies Allergen Reaction Date Comments Reported Other allergy 10/23/2019 NKDA Admission Admission Data Admission Date: 10/11/2020 Admission Time: 7:19 Arrival Date: 10/11/2020 Arrival Time: 0:00 Weight (lbs.): 200 Weight (kg.): 90.72 Procedure Procedure Types Cath Procedure Diagnostic Procedure [facility] w/Coronaries FFR/IVUS FFR Initial Sedation Charges Moderate Sedation 25-39 minutes PCI Procedure Coronary Stent Coronary Stent Initial Hemochron ACT Test Procedure Description Procedure Date Procedure Date: 10/11/2020 Procedure Start Time: 8:43 Procedure End Time: 9:29 Procedure Staff Name Function Nakul Hodgson MD Performing Physician Charlotte Anne RT Monitor Lula Navarro RT Scrub Ana Gil RN Nurse Procedure Data Cath Procedure Fluoroscopy Diagnostic fluoroscopy Total fluoroscopy Time: 9 time: 9 min min Diagnostic fluoroscopy Total fluoroscopy dose: dose: 1624 mGy 1624 mGy Contrast Material Contrast Material Type Amount (ml) Isovue 300 153 Entry Location Entry Primary Successful Side Size Upsize Upsize Entry Closure Robin ccessful Closure Location (Fr) 1 (Fr) 2 (Fr) Remarks Device Remarks Femoral Right 5 Fr Manual vein Compression Femoral Right 5 Fr 6 Fr Exoseal artery Short Estimated blood loss: 10 ml Diagnostic catheters Device Type Used For End Catheter Placement MULTIPACK JL 4.0 5Fr Procedure catheter MULTIPACK 3DRC 5Fr Procedure catheter MULTIPACK Pigtail 5 Fr Procedure catheter Procedure Complications No complications Procedure Medications Medication Administration Route Dosage Oxygen etCO2 Nasal cannula 2 l/min Heparin Flush Bag added to field 2 bags (1000units/500ml NS) Lidocaine 2% added to field 20 0.9% NaCl I.V. 100 ml/hr Fentanyl I.V. 50 mcg Versed I.V. 1 mg Digoxin I.V. 0.25 Heparin Bolus I.V. 5000 units Integrilin (Bolus I.V. ml 2mg/ml) Nitroglycerin IC/IA I.A. 150 mcg Plavix P.O. 600 mg Hemodynamics Rest Heart Rate: 93 (bpm) Pressure Samples Time Site Value (mmHg) Purpose Heart Use Rate(bpm) 8:51 LV 135/24,30 Snapshot 106 8:52 AO 148/120(124) Pullback 112 8:52 LV 98/20,27 Pullback 112 Gradients Valve Time Site 1 Site 2 Mean SEP/DFP Peak To Heart Use (mmHg) (sec/min) Peak Rate (mmHg) (bpm) Aortic 8:52 LV AO 0 112 98/20,27 148/120(124) Calculations Valve P-P Mean Valve Index Valve Source Name Gradient Area Flow (cm2) Aortic 0 0 Snapshots Pre Cath Intra NCS Post Cath Vital Signs Time Heart Resp SPO2 etCO2 NIBP (mmHg) Rhythm Pain Sedation Rate (ipm) (%) (mmHg) Status Level (bpm) 8:28:52 88 18 98 132/88(125) NSR 0 (11) 10(A) , No pain 8:33:02 89 14 93 135/95(109) NSR 0 (11) 10(A) , No pain 8:37:14 89 11 90 127/88(106) NSR 0 (11) 10(A) , No pain 8:41:20 95 11 93 134/99(121) NSR 0 (11) 10(A) , No pain 8:45:13 100 10 83 103/92(95) NSR 0 (11) 10(A) , No pain 8:51:08 111 14 85 13.4 145/112(123) NSR 0 (11) 9(A) , No pain 8:55:20 119 14 82 29.9 154/140(150) NSR 0 (11) 9(A) , No pain 8:59:36 125 12 59 27.6 137/117(120) NSR 0 (11) 9(A) , No pain 9:04:29 118 15 84 15.7 167/109(131) NSR 0 (11) 9(A) , No pain 9:10:50 115 21 82 25.4 157/122(139) NSR 0 (11) 9(A) , No pain 9:15:06 109 24 83 23.1 159/117(155) NSR 0 (11) 9(A) , No pain 9:19:24 116 20 90 20.9 155/108(133) NSR 0 (11) 9(A) , No pain 9:23:40 125 27 90 26.9 149/123(143) NSR 0 (11) 9(A) , No pain 9:27:54 112 30 92 9.7 168/113(136) NSR 0 (11) 9(A) , No pain 9:32:40 101 25 92 9.7 158/99(129) NSR 0 (11) 9(A) , No pain Medications Time Medication Route Dose Verified Delivered Reason Notes Effectiveness by by 8:28:57 Oxygen etCO2 2 Ana Ana for low 02 sats Nasal l/min Jeffery Gil, cannula RN RN 8:29:05 Heparin Flush added 2 Ana Ana used for Bag to bags Jeffery Gil procedure (1000units/500ml field RN RN NS) 8:29:14 Lidocaine 2% added 20ml Ana Nakul for local to vial St Toni Gil anesthetic field TIMOTEO MORRIS 8:29:28 0.9% NaCl I.V. 100 Ana Ana Per physician ml/hr Jeffery Gil, RN RN 8:42:12 Fentanyl I.V. 50 Ana Ana for sedation mcg Jeffery Gil, RN RN 8:42:17 Versed I.V. 1 mg Ana Ana for sedation Jeffery Gil, RN RN 8:55:04 Heparin Bolus I.V. 5000 Ana Ana for verifi ed units Jeffery Gil, anticoagulation w drMelvi RN RN maggie 8:55:04 Digoxin I.V. 0.25 Ana Ana Per physician Jeffery Gil RN RN 8:55:23 Integrilin I.V. ml Ana Ana for wasted (Bolus 2mg/ml) Jeffery Gil, anticoagulation 1.5ml RN RN 9:16:46 Nitroglycerin I.A. 150 Ana Nakul for IC/IA mcg St Toni Gil RN, MD 9:24:13 Plavix P.O. 600 Ana Ana for mg Jeffery Gil, antiplatelet RN RN therapy Procedure Log Time Note 7:41:31 Informed consent obtained and on chart 7:41:42 Diagnostic Cath Status : Elective 7:41:55 Arrival Date: 10/11/2020 12:00:00 AM 8:13:01 LAD lesion measured at .83 with IFR 8:13:19 Procedure Status Elective Heart Cath (OP). 8:13:20 Time tracking: Regular hours (M-F 7:00 - 5:00) 8:13:23 Plan of Care:Hemodynamics will remain stable., Cardiac rhythm will remain stable., Comfort level will be maintained., Respiratory function will remain adequate., Patient/ family verbilizes understanding of procedure., Procedure tolerated without complication., Recovers from procedure without complications.. 8:13:25 Lula RENEE(R) sent for patient. Start room use. 8:13:36 H&P Date Dictated: 09/06/2020 Within 30 days and on chart., H&P Addendum completed by physician on day of procedure. (MUST COMPLETE FOR ALL OUTPATIENTS). 8:17:14 Patient Weight : 200 lbs 8:17:58 Patient received from Pre/Post Procedure Room to CCL 2 Alert and oriented. Tansferred to table in Supine position. 8:18:00 Warm blankets applied, and torin hugger turned on for patient comfort. 8:18:00 Correct patient and procedure confirmed by team. 8:18:01 ECG and BP/O2 sat monitors applied to patient. 8:22:12 LAD lesion measured at 0.86 with IFR 8:27:51 Vital chart was started 8:27:52 Baseline sample Acquired. 8::58 Rhythm: atrial fibrillation 8:28:00 Full Disclosure recording started 8:28:00 Pre-procedure instructions explained to patient. 8:28:01 Pre-op teaching completed and patient verbalized understanding. 8:28:02 Family in patients room. 8:28:05 Patient NPO since Midnight. 8:28:18 Is patient on blood thinner?No 8:28:21 Patient diabetic? No. 8:28:26 Previous problem with sedation/anesthesia? No ? 8:28:26 Snore? Yes 8:28:27 Sleep apnea? No 8:28:28 Deviated septum? No 8:28:29 Opens mouth fully? Yes 8:28:31 Sticks out tongue? Yes 8:28:48 Airway obstruction? No ? 8:28:50 Dentures? No ? 8:28:57 Oxygen 2 l/min etCO2 Nasal cannula was administered by Ana Gil RN; for low 02 sats; Verbal order read back and verified. 8:28:58 Pre procedure: right dorsailis pedis pulse 1+ Palpable, but thready & weak; easily obliterated 8:29:05 Heparin Flush Bag (1000units/500ml NS) 2 bags added to field was administered by Ana Gil RN; used for procedure; Verbal order read back and verified. 8:29:10 Patient pain scale 0/10 ?. 8:29:13 IV patent on arrival in left hand with 0.9% NaCl at O. 8:29:14 Lidocaine 2% 20ml vial added to field was administered by Nakul Hodgson MD; for local anesthetic; Verbal order read back and verified. 8:29:19 Right groin area was prepped with chlora-prep and draped in sterile fashion 8:29:20 Alarms reviewed by R. N. 8:29:20 Sharps counted by scrub and verified by R.N. 8:29:28 0.9% NaCl 100 ml/hr I.V. was administered by Ana Gil RN; Per physician; Verbal order read back and verified. 8:32:59 Use device set Femoral Dx 8:33:00 ACIST Syringe (54574) opened to sterile field. 8:33:00 Bag Decanter (2002S) opened to sterile field. 8:33:01 ACIST Hand Control (17466) opened to sterile field. 8:33:02 ACIST Manifold (21393) opened to sterile field. 8:33:02 Tegaderm 4 x 4 (1626W) opened to sterile field. 8:33:03 Medline Cath Pack ([id number]) opened to sterile field. 8:33:04 DIAGNOSTIC Multipack 5Fr catheter set (KH4813) opened to sterile field. 8:33:05 SHEATH 5FR [place] (ZNZ161) opened to sterile field. 8:33:05 EMERALD Guide Wire (557-208) opened to sterile field. 8:39:10 --------ALL STOP TIME OUT------ 8:39:10 Final Timeout: patient, procedure, and site verified with staff and physician. All members of the team are in agreement. 8:39:12 Right groin site verified by team. 8:39:15 Fire Safety Assessment: A--An alcohol-based skin anteseptic being used preoperatively., C--Open oxygen or nitrous oxide is being used., D--An ESU, laser, or fiber-optic light is being used. 8:39:20 Physical assessment completed. ASA score P 2 - A patient with mild systemic disease as per Nakul Hodgson MD. 8:39:35 2) 60-89 Mildly reduced kidney function, and other findings (as for stage 1) point to kidney disease. 8:39:41 Maximum allowable contrast dose (3.7 X eGFR X 0.75)186 ml. 8:39:44 Sedation plan: IV Moderate Sedation Medication:Versed, Fentanyl 8:42:12 Fentanyl 50 mcg I.V. was administered by Ana Gil RN; for sedation; Verbal order read back and verified. 8:42:17 Versed 1 mg I.V. was administered by Ana Gil RN; for sedation; Verbal order read back and verified. 8:42:56 Procedure started. 8:43:02 Zero performed for pressure channel P1 8:43:05 Zero performed for pressure channel P1 8:43:08 Zero performed for pressure channel P1 8:43:15 Local anesthetic to right femoral artery with Lidocaine 2% by Nakul Hodgson MD.INITIAL ACCESS ONLY 8:43:51 A 5 Fr sheath was inserted into the Right Femoral vein 8:44:28 SHEATH 5FR [place] (DMJ644) opened to sterile field. 8:46:56 A 5 Fr sheath was inserted into the Right Femoral artery 8:47:47 A MULTIPACK JL 4.0 5Fr catheter was advanced over the wire and used for Procedure. 8:49:08 LCA angiography performed. 8:49:15 Catheter removed. 8:49:29 A MULTIPACK 3DRC 5Fr catheter was advanced over the wire and used for Procedure. 8:50:26 RCA angiography performed. 8:50:27 Catheter removed. 8:50:47 A MULTIPACK Pigtail 5 Fr catheter was advanced over the wire and used for Procedure. 8:51:28 LV gram done using MARES 8:51:30 Injector settings: Ml/sec: 10, Volume: 20, 8:51:49 LV hemodynamics recorded. 8:51:58 EF : 30 % 8:51:59 Catheter removed. 8:52:23 Proceeding to intervention. 8:52:51 SHEATH 6FR [place] (EVZ203) opened to sterile field. 8:52:52 GUIDE 6FR XBLAD 3.5 catheter ([id number]) opened to sterile field. 8:52:59 Sheath upsized to a 6 Fr Short. 8:53:08 INFLATOR Merit BasixCompak (ZX7068) opened to sterile field. 8:53:17 Zero performed for pressure channel P1 8:53:26 Zero performed for pressure channel P1 8:53:28 Zero performed for pressure channel P1 8:53:36 Zero performed for pressure channel P1 8:53:40 Zero performed for pressure channel P1 8:54:02 6 Fr XBLAD 3.5 guide catheter was inserted over the wire 8:55:04 Digoxin 0.25 I.V. was administered by Ana Gil RN; Per physician; Verbal order read back and verified. 8:55:04 Heparin Bolus 5000 units I.V. was administered by Ana Gil RN; for anticoagulation; verified w dr. serrano Verbal order read back and verified. 8:55:04 [place] OmniWire (96477) opened to sterile field. 8:55:13 Pre PCI Site: [place] LAD has 80% stenosis. 8:55:23 Integrilin (Bolus 2mg/ml) ml I.V. was administered by Ana Gil RN; for anticoagulation; wasted 1.5ml Verbal order read back and verified. 8:56:19 Pressure wire advanced. 8:58:04 Wire advanced across LAD lesion. 9:01:50 Place stent Inflation Number: 1 A INTEGRITY RX 3.0 x 15 stent ([id number]) was prepped and advanced across the Mid LAD . The stent was deployed at 14 LISA for 0:00 (min:sec) . 9:02:54 Inflation number: 2 The stent balloon was then re-inflated across the Mid LAD to 16 LISA for 0:00 (min:sec) . 9:03:19 Stent catheter was removed intact over wire. 9:07:11 Place stent Inflation Number: 1 A INTEGRITY RX 2.5 x 12 stent ([id number]) was prepped and advanced across the Dist LAD . The stent was deployed at 14 LISA for 0:00 (min:sec) . 9:07:15 Stent catheter was removed intact over wire. 9:08:18 LAD lesion measured at .80 with IFR 9:13:13 Inflation number: 3 The stent balloon was then re-inflated across the Mid LAD to 10 LISA for 0:00 (min:sec) . 9:13:43 Inflation number: 4 The stent balloon was then re-inflated across the Mid LAD to 16 LISA for 0:00 (min:sec) . 9:15:18 Inflation number: 5 The stent balloon was then re-inflated across the Mid LAD to 16 LISA for 0:00 (min:sec) . 9:15:43 Inflation number: 6 The stent balloon was then re-inflated across the Mid LAD to 16 LISA for 0:00 (min:sec) . 9:16:46 Nitroglycerin IC/IA 150 mcg I.A. was administered by Nakul Hodgson MD; for vasodilation; Verbal order read back and verified. 9:18:56 Stent catheter was removed intact over wire. 9:20:17 Wire removed. 9:20:17 Guide catheter removed. 9:20:23 EXOSEAL 6Fr (EX600) opened to sterile field. 9:20:33 Sheath removed intact; hemostasis achieved with Manual Compression to the Right Femoral vein. 9:20:33 Sheath removed intact; hemostasis achieved with Exoseal to the Right Femoral artery. 9:20:42 Procedure ended.(Physican Out) 9:22:16 Contrast amount:Isovue 300 153ml. 9:24:06 Fluoroscopy time 09.00 minutes. 9:24:10 Flurop Dose total: 1624 9:: Fluoroscopy dose: 1624 mGy 9:24:13 Plavix 600 mg P.O. was administered by Ana Gil RN; for antiplatelet therapy; Verbal order read back and verified. 9:24:18 Dose Area Product 73443 mGy/cm. 9:24:19 Sharps counted by scrub and verified by R.N. 9:24: Post-op/insertion site Right Femoral artery dressed using a 4 x 4 and Tegaderm. 9:24:25 Post-procedure physical assessment completed. ASA score P 2 - A patient with mild systemic disease as per Nakul Hodgson MD. 9:24:28 Post procedure rhythm: unchanged. 9:24:31 Estimated blood loss: 10 ml 9:24:32 Post procedure instruction explained to patient.Patient verbalizes understanding. 9::32 Patient needs reinforcement of post procedure teaching. 9:26:21 Procedure type changed to Cath procedure, Diagnostic procedure, LHC, LHC w/Coronaries, FFR/IVUS, FFR Initial, Sedation Charges, Moderate Sedation 25-39 minutes, PCI procedure, Coronary Stent, Coronary Stent Initial, Hemochron ACT Test 9::52 ACT drawn and resulted at 200 seconds. (normal therapeutic range 180-240 seconds). 9:29:05 Procedure and supply charges have been captured, reviewed, submitted and are correct. 9:29:08 Procedure Complication : No complications 9:29:10 Vital chart was stopped 9::13 [facility] Findings: MVD- PCI performed (see procedure note) 9:29:15 Operative report dictated upon procedure completion. 9:29:15 See physician's report for complete and final results. 9:29:18 Report given to Pre/Post Procedure Room. 9:29:20 Patient transfered to Pre/Post Procedure Room with Bed. 9::22 Procedure ended. 9::22 Full Disclosure recording stopped 9:30:58 ACC-PCI Only Patient was given prescriptions, or instructed by Nakul Hodgson MD to start/continue the following medications upon discharge: Plavix 9:32:55 End room use (Document Last) 9:35:18 End room use (Document Last) Intervention Summary Intervention Notes Time ActionType Lesion and Equipment Action# Pressure Duration Attributes Used 9:01:50 Place stent Mid LAD INTEGRITY RX 1 14 00:00 3.0 x 15 stent ([id number]) 9:02:54 Reinflate Mid LAD INTEGRITY RX 2 16 00:00 stent 3.0 x 15 balloon stent ([id number]) 9:07:11 Place stent Dist LAD INTEGRITY RX 1 14 00:00 2.5 x 12 stent ([id number]) 9:13:13 Reinflate Mid LAD INTEGRITY RX 3 10 00:00 stent 3.0 x 15 balloon stent ([id number]) 9:13:43 Reinflate Mid LAD INTEGRITY RX 4 16 00:00 stent 3.0 x 15 balloon stent ([id number]) 9:15:18 Reinflate Mid LAD INTEGRITY RX 5 16 00:00 stent 3.0 x 15 balloon stent ([id number]) 9:15:43 Reinflate Mid LAD INTEGRITY RX 6 16 00:00 stent 3.0 x 15 balloon stent ([id number]) Device Usage Item Name Manufacture Quantity Catalog Hospital Part Current Minimal Lot# / Number Charge Number Stock Stock Serial# Code ACIST Acist 1 96868 526339 631224 180254 20 Syringe Medical (32414) Systems Inc Bag Decanter Microtek 1 2001S 449029 34963 543369 5 (2001S) Medical Inc. ACIST Hand Acist 1 88490 246127 012705 408071 5 Control Medical (32605) Systems Inc ACIST Acist 1 08811 304625 520128 430664 5 Manifold Medical (64477) Systems Inc Tegaderm 4 x 3M 1 1626W 337006 869570 458095 5 4 (1626W) Medline Cath Medline 1 [id number] 100779 03969 260427 5 Pack ([id number]) DIAGNOSTIC Cardinal 1 UD0063 194297 08298 870669 30 [place] 5Fr catheter set (KW1927) SHEATH 5FR Terumo 2 KQS230 581688 898366 169449 5 [place] (UPV677) EMERALD Cardinal 1 118-898 737800 527379 789797 5 Guide Wire [facility] (874-849) MULTIPACK Cardinal 1 360421 5 4.0 5Fr Health catheter MULTIPACK Cardinal 1 526551 5 3DRC 5Fr Health catheter MULTIPACK Cardinal 1 706079 5 Pigtail 5 Fr Health catheter SHEATH 6FR Terumo 1 LIE766 044095 573255 911908 40 [place] (EME176) GUIDE 6FR Cardinal 1 [id number] 566734 384104 191045 10 XBLAD 3.5 Health catheter ([id number]) INFLATOR Merit 1 LF4742 496991 085800 619662 15 Merit Medical BasixCompak (AK4355) [place] 1 1581988 785783 55495 9996 5 OmniWire (78038) INTEGRITY RX Medtronic 1 [id number] 208487 072894 157349 5 [id number] 3.0 x 15 stent ([id number]) INTEGRITY RX Medtronic 1 [id number] 958201 929176 985126 5 [id number] 2.5 x 12 stent ([id number]) EXOSEAL 6Fr Cardinal 1 EX600 390116 412986 466419 10 (EX600) Health Signature Audit [place] Stage Time Signature Unsigned Intra-Procedure 10/11/2020 Charlotte Anne 9:35:18 AM RT(R) Intra-Procedure 10/11/2020 Ana Gil, 9:36:23 AM RN Intra-Procedure 10/11/2020 Nakul Golden 9:36:43 AM Toni MORRIS Signatures Performing Physician : Signature : Nakul Hodgson MD Date : Time : Monitor : Charlotte Anne Signature : RT Date : Time : Nurse : Ana Gil, Signature : RN Date : Time : [id number] [address]
[2020-10-11] MEDS ORDERED: CEPHALEXIN500 M1 PO (07:33)
[2020-10-11 07:57] VITALS: BP 127/86; Ht 180.3 cm; Wt 94.8 kg
[2020-10-11 08:05] LABS: BASOPHILS 1.1 % (0-2); EOSINOPHILS 4.1 % (0-7); HEMATOCRIT 30.8 % (42.0-54.0); HEMOGLOBIN 9.8 g/dL (13.5-17.5); IMMATURE GRANULOCYTES 1.4 % (0-5); LYMPHOCYTE ABS# 1.05 10x3/uL (1.32-3.57); LYMPHOCYTES 16.1 % (15-50); MCH 31.4 pg (26.0-34.0); MCHC 31.8 g/dL (31.0-37.0); MCV 98.7 fL (80.0-100.0); MEAN PLATELET VOLUME 8.9 fL (7.4-10.4); MONOCYTES 8.7 % (2-11); NEUTROPHIL ABS# 4.47 10x3/uL (1.78-5.38); NEUTROPHILS 68.6 % (40-80); PLATELET COUNT 138 10x3/uL (130-400); RBC 3.12 10x6/uL (4.20-6.10); RDW 15.7 % (11.5-14.5); WBC 6.5 10x3/uL (4.8-10.8)
[2020-10-11 08:30] LABS: ANION GAP 8.5 mmol/L (8-16); CALCIUM 7.9 mg/dL (8.5-10.1); CARBON DIOXIDE 26.8 mmol/L (21.0-32.0); CREATININE - SERUM 1.1 mg/dL (0.6-1.3); POTASSIUM - SERUM 4.3 mmol/L (3.5-5.1)
[2020-10-11 08:45] LABS: CHOL - HDL RATIO 1.8 ratio (2.3-4.9); LDL-HDL RATIO 0.7 ratio (1.5-3.5)
--- NOTE | 2020-10-11 09:45 | NUR ---
PT RECEIVED BACK TO ROOM 5 VIA STRETCHER FROM ANESTHESIA DIRECTOR FOR RECOVERY. PT SLEEPING, BUT VERBALLY AROUSABLE. IV PATENT INFUSING VIA ORDERS TO LA. PT PLACED ON CARDIAC MONITORS AND O2 VIA NC AT 4L. PT HAS SLEEP APNEA, O2 SATS LOW DURING PROCEDURE WILL MONITOR CLOSELY. R GROIN W 6FR EXOCELE, DRESSING CDI NO S/S HEMATOMA OR BLEEDING. LEG PINK AND WARM, PEDAL PULSES PALPABLE. CALL LIGHT IN REACH. VSS
[2020-10-11] MEDS ORDERED: PLAVIX75 MG PO (09:52)
[2020-10-11] MEDS ORDERED: ALDACTONE25 MG PO (09:52)
--- NOTE | 2020-10-11 10:15 | NUR ---
PT SLEEPING, VSS AT PRESENT. R GROIN SOFT, DRESSING CDI NO S/S HEMATOMA OR BLEEDING NOTED. CALL LIGHT IN REACH
--- NOTE | 2020-10-11 10:44 | NUR ---
PT STILL SLEEPING, VERBALLY AROUSABLE. R GROIN SOFT, DRESSING CDI NO S/S HEMATOMA OR BLEEDING NOTED. CALL LIGHT IN REACH, VSS AT PRESENT.
--- NOTE | 2020-10-11 10:59 | NUR ---
ATTEMPTED TO WAKE PT UP TO GIVE PO PLAVIX. HE IS STILL SO DROWSY, UNABLE TO STAY AWAKE ENOUGH TO SWALLOW AT THIS TIME. VSS AT PRESENT. R GROIN SOFT, DRESSING CDI NO S/S HEMATOMA OR BLEEDING. CALL LIGHT IN REACH. DR ARREAGA AT , NO NEW ORDERS RECEIVED.
--- NOTE | 2020-10-11 11:15 | NUR ---
600mg PLAVIX GIVEN PO W SIPS OF WATER.
--- NOTE | 2020-10-11 11:30 | NUR ---
R GROIN SOFT, NO S/S HEMATOMA OR BLEEDING NOTED. PT COUGHING SO SANDBAG PLACED ON GROIN. VSS. CALL LIGHT IN REACH. PT MORE AWAKE, DENIES PAIN OR NEEEDS AT THIS TIME.
--- NOTE | 2020-10-11 12:01 | NUR ---
PT RESTING COMFORTABLY, R GROIN SOFT, NO S/S HEMATOMA. LEG PINK AND WARM, PEDAL PULSES PALPABLE. CALL LIGHT IN REACH.
--- NOTE | 2020-10-11 12:25 | NUR ---
R GROIN SOFT, DRESSING CDI NO S/S HEMATOMA OR BLEEDING NOTED. HOB ELEVATED. COFFEE SERVED. O2 TURNED TO 1L/NC. PT DENIES PAIN OR OTHER NEEDS AT THIS TIME.
--- NOTE | 2020-10-11 12:51 | NUR ---
REPORT TO Joseluis HENDESRON RN TO ASSUME CARE.
--- NOTE | 2020-10-11 13:20 | NUR ---
RIGHT GROIN DRESSING C/D/I. NO S/S OF HEMATOMA NOTED. RIGHT PEDAL PULSE PALPABLE. PIV D/C'D WITH CATH TIP INTACT. TOLERATED WELL. PT VOIDED IN URINAL APPROX 300cc OF CLEAR YELLOW URINE. PT ASSISTED IN GETTING DRESSED.
--- NOTE | 2020-10-11 13:30 | NUR ---
DISCUSSED DISCHARGE INSTRUCTIONS WITH PT. HE VOICED UNDERSTANDING. RX TO BE DROPPED OFF AT PHARMACY AND STARTED TOMORROW.
--- NOTE | 2020-10-11 13:40 | NUR ---
PT TAKEN OUT TO VEHICLE BY WHEELCHAIR. NO S/S OF DISTRESS NOTED. ALL BELONGINGS AND PAPERWORK IN HAND. RIGHT GROIN DRESSING C/D/I. NO S/S OF HEMATOMA NOTED. PT'S ORTHOPEDIC DENTIST IS PICKING HIM UP. GAVE HIM THE 2 NEW PRESCRIPTIONS AND HE STATED HE WOULD DROP THEM OFF ON THEIR WAY HOME TODAY. PT UNSTEADY ON HIS FEET. USES A CANE AND PT'S ORTHOPEDIC DENTIST SAID HE WOULD MAKE SURE PT WAS SAFELY ASSISTED INTO HOME AND CHECK ON HIM LATER.
--- NOTE | 2020-10-12 13:52 | OP ---
PATIENT NAME: ADAM ROUSE MEDICAL RECORD: [id number] :35 LOCATION:D.CAT ADMISSION DATE: SURGEON: SABINE ARREAGA MD DATE OF OPERATION: 10/11/2020 PROCEDURE: Left heart catheterization, selective coronary angiography plus IFR wire plus PTCA stent of the LAD times 2, right femoral approach. CATHETERS: A 5-Nepalese sheath, 5/4 left and right Gosia, 5/4 pig. The procedure was well tolerated. The patient was returned to the polanco. Sheath removed. ExoSeal device was placed. FINDINGS: Left ventriculography in 30-degree MARES view shows global hypokinesis, reduced EF 30%. CORONARY ANATOMY: Left main: Left main is free of disease. LAD: Has 2 stenosis, 1 distal to the previously placed stent at the mid portion and 1 far distal one-third 80%. Circumflex: Small circumflex free of disease. Right coronary artery: Large, dominant right. Previously placed stent is widely patent. No progression of hoh disease. PLAN: Intervention LAD using IFR guidance. DESCRIPTION: A 5-Nepalese sheath was exchanged for a 6-Nepalese sheath and after normalizing the IFR wire in the aorta, we placed the stents in the following fashion. A 2.5 x 12 was placed in the distal 80% stenosis. A 3.0 x 15, both Integrity nondrug-eluting stents were being placed proximally. Next, using IFR wire as guidance, the proximal stent was found to have still significant abnormal flow reserve and using the previously used stent balloon inflated up to 16 atmospheres. This showed improvement with IFR above 0.9. IMPRESSION: Successful percutaneous transluminal coronary angioplasty stenting of the LAD using IFR wire guidance. Sheath was closed with ExoSeal device. Plavix loaded in the lab. Additionally, we will add digoxin and Aldactone for myopathy and atrial fibrillation. TRANSINT:[id number] Voice Confirmation ID: [id number] DOCUMENT ID: [id number] SABINE ARREAGA MD at 1352 CC: [id number] DICTATION DATE: 10/11/20 0943 BORDEREAU CLERK: 10/11/20 1309 [facility] 10/11/20 [address] [place] [address]
--- NOTE | 2020-10-12 13:52 | HP ---
PATIENT: ADAM ROUSE MEDICAL RECORD: [id number] ACCOUNT: [id number] LOCATION:JULI : 35 ADMISSION DATE: 10/11/20 PCP: ADAM ESPINOZA MD HISTORY AND PHYSICAL EXAMINATION HISTORY OF PRESENT ILLNESS: An 85-year-old gentleman with history of coronary artery disease status post multivessel intervention, initially seen in the office with recurrent anginal symptomatology. Has a history of cardiomyopathy, sick sinus syndrome as well, on combination of VICK inhibitor and beta blockade. Symptomatology has been rapidly progressive. He was brought to the bolt labeler for delineation of anatomy. PAST MEDICAL HISTORY: Includes: 1. History of hypertension. 2. Hyperlipidemia. 3. Coronary artery disease as described above. 4. Cardiomyopathy, most recent EF 40% via nuclear study. PHYSICAL EXAMINATION: GENERAL: Pleasant, in no acute distress. Appears stated age. HEENT: Normocephalic, atraumatic. NECK: No JVD or bruit. HEART: Regular. A III/ systolic ejection murmur. LUNGS: Fair air excursion. ABDOMEN: Soft, nontender. EXTREMITIES: Pulses 3+. No edema. IMPRESSION: Plan for angiography and intervention based on the above. TRANSINT:[id number] Voice Confirmation ID: [id number] DOCUMENT ID: [id number] SABINE ARREAGA MD at 1352 CC: [id number] DICTATION DATE: 10/11/20 0839 SCREEN MAKING TECHNICIAN: 10/11/20 1047 [facility] 10/11/20 [id number] [place] [address]
== END 2020-10-11 13:40 | disposition home or self-care (01) ==
LOC: D.CATH 07:19
PROVIDERS: ATTEND Internal Medicine Interventional Cardiology
DX: I25.110 Atherosclerotic heart disease of native coronary artery with unstable angina pectoris (principal); I42.9 Cardiomyopathy, unspecified; I49.5 Sick sinus syndrome; I10 Essential (primary) hypertension; E78.5 Hyperlipidemia, unspecified; R06.00 Dyspnea, unspecified; I48.91 Unspecified atrial fibrillation; Z95.0 Presence of cardiac pacemaker; R94.30 Abnormal result of cardiovascular function study, unspecified

== ENCOUNTER 2020-10-29 16:20 | Emergency (ER) | payer MEDICARE, OTHER ==
[~2020-10-29] VITALS: Ht 180.3 cm; Wt 86.6 kg
[~2020-10-29 16:20] MED LIST changes: +ALDACTONE25 MG PO; +CEPHALEXIN500 M1 PO
[2020-10-29 16:30] VITALS: BP 121/78; Ht 180.3 cm; Wt 86.6 kg
[2020-10-29] MEDS ORDERED: CEPHALEXIN250 M1 PO (19:26)
== END 2020-10-29 21:11 | disposition home or self-care (01) ==
LOC: D.ER 16:20
DX: S09.90XA Unspecified injury of head, initial encounter (principal); S80.01XA Contusion of right knee, initial encounter; S01.319A Laceration without foreign body of unspecified ear, initial encounter; S51.812A Laceration without foreign body of left forearm, initial encounter; W19.XXXA Unspecified fall, initial encounter; Y93.9 Activity, unspecified; Y92.9 Unspecified place or not applicable; I50.9 Heart failure, unspecified

== ENCOUNTER → 2020-11-22 14:07 | Outpatient (CLI) | payer MEDICARE, OTHER ==
[2020-10-29 16:30] VITALS: BMI 29.1
[~2020-11-22 14:07] MED LIST changes: +CEPHALEXIN250 M1 PO
== END | disposition home or self-care (01) ==
LOC: D.CT 14:07
PROVIDERS: ATTEND Nurse Practitioner Family
DX: M75.102 Unspecified rotator cuff tear or rupture of left shoulder, not specified as traumatic (principal)